=== PATIENT | male | born 1965 | race Caucasian/White ===

== ENCOUNTER → 2016-09-21 | Outpatient (CLI) | payer BC, OTHER ==
[~2016-09-21] MED LIST: CMD25 PO; CMD5 PO; ENOX120I SQ; FLV1 PO; KETO10TA PO; LEVO150T9 PO; LEVO200T6 PO; LTD/40 PO; LURA80TA PO; LVNIS120 SC; LXP/20 PO; OXYC-57 PO; PANT40TA2 PO; THM100 PO; VORT10TA12 PO; VORT1TAB3 PO; WARF5TAB90 PO
--- NOTE | 2016-09-21 21:11 | DIAGNOSTIC IMAGING REPORT ---
MRI OF THE CERVICAL SPINE WITHOUT CONTRAST CLINICAL HISTORY: Right upper extremity weakness. Cervical disc herniation. Severe right shoulder pain. COMPARISON: CT of the cervical spine August 22, 2016. TECHNIQUE: Utilizing a 1.5 [place] magnet and dedicated coil, multiplanar, multiecho imaging of the cervical spine was performed without IV contrast. FINDINGS: This exam is mildly compromised by motion artifact. Alignment of the cervical spine is anatomic. Vertebral body heights are maintained. There is no intracanalicular mass or fluid collection. Cervical cord signal is suboptimally assessed on this exam but is likely within normal limits. C2-C3: The central canal and left neural foramen are patent. There is mild to moderate narrowing of the right neural foramen. C3-C4: The central canal and neural foramen are patent. C4-C5: There is mild disc bulge. The central canal is patent. There is mild narrowing of both neural foramen. C5-C6: There is mild disc bulge. The central canal is patent. There is mild narrowing of both neural foramen. C6-C7: There is mild disc bulge. The central canal is patent. The neural foramen are patent. C7-T1: The central canal and neural foramen are patent. IMPRESSION: 1. Mild multilevel degenerative disc disease with mild disc bulges. No significant central canal stenosis. 2. Mild to moderate multilevel neural foraminal stenosis, as detailed above. 3. Study mildly compromised by motion artifact. Electronically signed by: Andrei Carver M.D. 09/21/2016 9:10 PM Dictated Date/Time: 09/21/2016 7:15 PM
== END | disposition home or self-care (01) ==
LOC: C.MRI 17:38
PROVIDERS: ATTEND Orthopaedic Surgery Orthopaedic Surgery of the Spine
DX: M50.10 Cervical disc disorder with radiculopathy, unspecified cervical region (principal); M50.20 Other cervical disc displacement, unspecified cervical region; R29.898 Other symptoms and signs involving the musculoskeletal system

== ENCOUNTER 2016-10-31 01:43 | Inpatient (IN) | payer BC, OTHER ==
[~2016-10-31] VITALS: Ht 185.4 cm; Wt 116.9 kg
[~2016-10-31 01:43] MED LIST changes: -CMD25 PO; -CMD5 PO; -ENOX120I SQ; -FLV1 PO; -KETO10TA PO; -LEVO200T6 PO; -LURA80TA PO; -LVNIS120 SC; -OXYC-57 PO; -THM100 PO; -VORT10TA12 PO; -VORT1TAB3 PO; -WARF5TAB90 PO
[2016-10-31] MEDS ORDERED: KETOROLAC TROMETHAMINE 60 MG/2 ML VIAL IM STA (01:58)
[2016-10-31] MEDS ORDERED: MoRPHine SULFATE 4 MG/ML 1 ML CARP\\VIAL IV STA (02:00)
[2016-10-31] MEDS ORDERED: ONDANSETRON INJ 2 MG/ML 2 ML VIAL IV STA (02:00)
[2016-10-31 02:27] LABS: BASO % 0.2 %; BASO ABS # 0.02 K/uL (0-0.2); COMPLETE YES; EOS % 1.8 %; HEMATOCRIT 45.9 % (42-52); IG% 0.2 %; LYMPH % 26.8 %; LYMPH ABS # 3.35 K/uL (1.2-3.4); MEAN CELL VOLUME 93.1 fL (80-100); MEAN CORPUSCULAR HEMOGLOBIN 32.5 pg (25-34); MEAN CORPUSCULAR HGB CONC 34.9 g/dl (32-36); MEAN PLATELET VOLUME 10.7 fL (7.4-10.4); MONO % 8.1 %; NEUT % 62.9 %; PLATELET COUNT 202 K/uL (130-400); RED BLOOD COUNT 4.93 M/uL (4.7-6.1); WHITE BLOOD COUNT 12.48 K/uL (4.8-10.8)
[2016-10-31] MEDS ORDERED: HYDROmorphone INJ 1 MG/ML SYR IV STA ×2 (02:41→03:48)
[2016-10-31 02:44] LABS: BUN/CREATININE RATIO 10.5 (10-20); CALCIUM 9.1 mg/dl (8.5-10.1); CREATININE 1.1 mg/dl (0.60-1.40); POTASSIUM 4.1 mmol/L (3.5-5.1)
[2016-10-31] MEDS ORDERED: OPTIRAY 320 IV PRN (02:45)
[2016-10-31] MEDS ORDERED: HEPARIN SOD (PORCINE) 1000 UNIT/ML 10 ML VIAL IV STA (03:50)
--- NOTE | 2016-10-31 03:52 | EMERGENCY ROOM VISIT NOTE ---
History First contact with patient: 01:54 Chief Complaint: BACK PAIN Stated Complaint: BACK PAIN History of Present Illness The patient is a 51 year old male who presents to the Emergency Room with complaints of sudden onset of left lateral chest pain and back pain described as aching, ranging in severity 6 out of 10 after lifting a garbage while at work. He works at [employer]. Nothing makes it better or worse. Patient was of mild dyspnea. He's had DVT before. No prior heart disease. No family heart disease. He does smoke. Patient denies fever, chills, nausea, vomiting, diarrhea, diaphoresis, leg pain or slowing, abdominal pain. No history of similar symptoms in the past. No spinal pain. Review of Systems See HPI for pertinent positives & negatives. A total of 10 systems reviewed and were otherwise negative. Past Medical/Surgical History Medical Problems: (1) Esophageal Reflux (2) Hypothyroidism Nos (3) Osteoarthritis of right knee (4) Tobacco Use Disorder Surgical Problems: (1) History of cholecystectomy Family History Patient reports no known family medical history. Social History Smoking Status: Current Every Day Smoker Alcohol Use: none Drug Use: none Marital Status: Housing Status: lives with family Occupation Status: employed Current/Historical Medications Scheduled Escitalopram Oxalate (Escitalopram Oxalate), 20 MG PO DAILY Levothyroxine Sodium (Levothyroxine Sodium), 150 MCG PO QAM Lurasidone HCl (Latuda), 40 MG PO DAILY Pantoprazole (Pantoprazole Sodium), 40 MG PO DAILY Allergies Coded Allergies: No Known Allergies (Unverified , 02/08/15) Physical Exam Vital Signs Date Time Temp Pulse Resp B/P Pulse Ox O2 Delivery O2 Flow Rate FiO2 10/31/16 03:31 133/94 10/31/16 03:23 60 22 94 10/31/16 03:18 54 17 95 10/31/16 03:10 153/96 10/31/16 02:48 61 96 10/31/16 02:43 59 15 97 10/31/16 02:31 141/91 10/31/16 02:30 57 10/31/16 02:15 95 Room Air 10/31/16 01:48 36.9 62 18 149/93 96 Room Air Physical Exam VITALS: Vitals are noted on the nurse's note and reviewed by myself. Vital signs stable. GENERAL: Pleasant male, splinting in pain, nondiaphoretic, well-developed well- nourished. SKIN: The skin was without rashes, erythema, edema, or bruising. There is no tenting of the skin. Capillary reflex less than 2 seconds. HEAD: Normocephalic atraumatic. EARS: External auditory canals clear, tympanic membranes pearly madsen without erythema or effusion bilaterally. EYES: Pupils equal round and reactive to light and accommodation. Conjunctivae without injection, sclerae without icterus. Extraocular movements intact. NOSE: Patent, turbinates without inflammation or discharge. MOUTH: Mucous membranes moist. Pharynx without erythema or exudate. Uvula midline. Airway patent. Tongue does not deviate. NECK: Supple without nuchal rigidity. No lymphadenopathy. No thyromegaly. Cervical spine is nontender. No JVD. HEART: Regular rate and rhythm without murmurs gallops or rubs. LUNGS: Clear to auscultation bilaterally without wheezes, rales or rhonchi. No dullness to percussion. No retractions or accessory muscle use. Left lateral chest tender to palpation easily reproducing symptoms ABDOMEN: Positive bowel sounds x 4. Normal tympanic percussion. Soft, nontender, without masses or organomegaly. Brown sign negative. No guarding or rebound tenderness. MUSCULOSKELETAL: No muscle atrophy, erythema, or edema noted. NEURO: Patient was alert and oriented to person place and time. Normal sensation to light and sharp touch. No focal neurological deficits. Medical Decision & Procedures Laboratory Results 10/31/16 02:15 Red Blood Count 4.93, Mean Corpuscular Volume 93.1, Mean Corpuscular Hemoglobin 32.5, Mean Corpuscular Hemoglobin Concent 34.9, Mean Platelet Volume 10.7, Neutrophils (%) (Auto) 62.9, Lymphocytes (%) (Auto) 26.8, Monocytes (%) (Auto) 8.1, Eosinophils (%) (Auto) 1.8, Basophils (%) (Auto) 0.2, Neutrophils # (Auto) 7.84, Lymphocytes # (Auto) 3.35, Monocytes # (Auto) 1.01, Eosinophils # (Auto) 0.23, Basophils # (Auto) 0.02 10/31/16 02:15 Test 10/31/16 02:15 10/31/16 02:21 10/31/16 03:37 10/31/16 03:44 White Blood Count 12.48 K/uL (4.8-10.8) Red Blood Count 4.93 M/uL (4.7-6.1) Hemoglobin 16.0 g/dL (14.0-18.0) Hematocrit 45.9 % (42-52) Mean Corpuscular Volume 93.1 fL (80-100) Mean Corpuscular Hemoglobin 32.5 pg (25-34) Mean Corpuscular Hemoglobin Concent 34.9 g/dl (32-36) Platelet Count 202 K/uL (130-400) Mean Platelet Volume 10.7 fL (7.4-10.4) Neutrophils (%) (Auto) 62.9 % Lymphocytes (%) (Auto) 26.8 % Monocytes (%) (Auto) 8.1 % Eosinophils (%) (Auto) 1.8 % Basophils (%) (Auto) 0.2 % Neutrophils # (Auto) 7.84 K/uL (1.4-6.5) Lymphocytes # (Auto) 3.35 K/uL (1.2-3.4) Monocytes # (Auto) 1.01 K/uL (0.11-0.59) Eosinophils # (Auto) 0.23 K/uL (0-0.5) Basophils # (Auto) 0.02 K/uL (0-0.2) RDW Standard Deviation 40.6 fL (36.4-46.3) RDW Coefficient of Variation 12.2 % (11.5-14.5) Immature Granulocyte % (Auto) 0.2 % Immature Granulocyte # (Auto) 0.03 K/uL (0.00-0.02) Anion Gap 6.0 mmol/L (3-11) Est Creatinine Clear Calc Drug Dose 105.4 ml/min Estimated GFR () 88.4 Estimated GFR (Non- 76.2 BUN/Creatinine Ratio 10.5 (10-20) Calcium Level 9.1 mg/dl (8.5-10.1) Bedside D-Dimer > 450 ng/mlFEU (0-450) Bedside Troponin I 0.000 ng/ml (0-0.045) Medications Administered Medications (Trade) Dose Ordered Sig/Bennie Route Start Time Stop Time Status Last Admin Dose Admin Morphine Sulfate (MoRPHine SULFATE INJ) 4 mg NOW STAT IV 10/31/16 02:00 10/31/16 02:02 DC 10/31/16 02:11 4 MG Ondansetron HCl (Zofran Inj) 4 mg NOW STAT IV 10/31/16 02:00 10/31/16 02:02 DC 10/31/16 02:10 4 MG Hydromorphone HCl (Dilaudid Inj) 1 mg NOW STAT IV 10/31/16 02:41 10/31/16 02:43 DC 10/31/16 02:45 1 MG ED Course Prior records/ancillary studies reviewed. Triage Nursing notes reviewed. The patient's history was concerning for chest pain. Differential diagnosis: Etiologies such as cardiac ischemia, aortic dissection, pulmonary embolism, pneumonia, pneumothorax, musculoskeletal, infections, pericarditis, myocarditis , esophageal rupture, gastrointestinal, as well as others were entertained. Physical examination: As above. ER treatment provided: Morphine, Zofran, Dilaudid, heparin On reassessment the patient felt better. Diagnostic interpretation by me: The electrocardiogram was negative for pathologic change. Normal sinus, normal intervals, no acute ST-T wave changes. Impression normal sinus rhythm interpreted by myself The labs revealed negative troponin, elevated d-dimer Imaging studies: Chest x-ray with no acute consolidation, pneumothorax or free air per my interpretation CTA CHEST: Comparison 05/19/2014 There are filling defects in the segmental and subsegmental pulmonary arterial branches of both lower lobes compatible pulmonary emboli. Peripherally located wedge-shaped opacity in the left lower lobe is most likely a pulmonary infarct. Follow-up is recommended to ensure resolution. Central pulmonary arteries are nondilated. No evidence of right heart strain. Ascending thoracic aorta is aneurysmally dilated measuring up to 4.0 cm. Trace left pleural effusion. No pneumothorax. No adenopathy. Heart is normal size. No pericardial effusion. Upper abdomen is unremarkable as visualized. Radiologist: Julian Noyola MD Consultation: A consultation was placed with the hospitalist, Dr. Zavala. The case was discussed and diagnostics were reviewed. The patient was evaluated in the ER for further treatment. Exam and history seem consistent with PE. Patient was started on heparin. Patient was reassessed multiple times. Vital Signs remained stable. He was in the severe amount of pain. He was medicated as above. No problems in the past of blood thinners. Patient agrees to treatment plan of admission. Hypercoagulable workup was ordered.By the evaluation outlined above emergent etiologies such as cardiac ischemia, aortic dissection pneumonia, pneumothorax , infections, pericarditis, myocarditis, gastrointestinal, as well as others were deemed relatively unlikely. The pt informed about the findings as listed above. All questions were answered and pleased with the treatment. Case reviewed by attending. Medical Decision As above Impression Primary Impression: Bilateral pulmonary embolism Additional Impressions: Pulmonary infarct Aortic aneurysm Critical Care I have personally spent greater than 30 minutes of critical care time in the direct management of this patient. This includes bedside care, interpretation of diagnostic studies, and testing, discussion with consultants, patient, and family members, and other required patient management activities. This 30 minutes is in excess of all separately billable procedures. Departure Information Dispostion Being Evaluated By Hospitalist Condition FAIR Referrals No Doctor, Assigned (PCP) Patient Instructions My [facility] Problem Qualifiers
[2016-10-31] MEDS ORDERED: HEPARIN 25,000 UNIT/500ML D5W 500 ML IV PRN (04:00)
[2016-10-31 04:26] LABS: INR 0.9 (0.9-1.1); PROTHROMBIN TIME (PATIENT) 10.1 SECONDS (9.0-12.0)
[2016-10-31] MEDS ORDERED: LEVO150T9 PO (04:39)
[2016-10-31] MEDS ORDERED: ONDANSETRON INJ 2 MG/ML 2 ML VIAL IV PRN (04:45)
[2016-10-31] MEDS ORDERED: MAGNESIUM HYDROXIDE SUSP 30 ML UDC PO PRN (04:45)
[2016-10-31] MEDS ORDERED: NITROGLYCERIN 0.4 MG SL PER TAB CHARGE SL PRN (04:45)
[2016-10-31] MEDS ORDERED: ALUMINUM/MAGNESIUM/SIMETH (MAALOX MAX) 30 ML UDC PO PRN (04:45)
[2016-10-31] MEDS ORDERED: ACETAMINOPHEN 325 MG TAB PO PRN (04:45)
[2016-10-31] MEDS ORDERED: LORAZEPAM 2 MG/ML 1 ML VIAL IV PRN (05:00)
[2016-10-31 05:15] VITALS: BP 144/101; PULSE 62; TEMP 36.3; O2SAT 95; Ht 185.4 cm; Wt 116.9 kg
[2016-10-31] MEDS ORDERED: LORAZEPAM INJ 0.5 MG in SYRINGE 0.75 ML IV PRN (05:30)
[2016-10-31] MEDS: MoRPHine SULFATE 2 MG/ML CARP IV PRN ×2 (05:54→11:30)
[2016-10-31] MEDS: LEVOTHYROXINE 200 MCG TAB PO SCH (06:24)
[2016-10-31] MEDS: HEPARIN 25,000 UNIT/500ML D5W 500 ML IV PRN ×3 (07:00→17:39)
--- NOTE | 2016-10-31 07:12 | HISTORY & PHYSICAL EXAMINATION ---
DATE OF ADMISSION: 10/31/2016 CHIEF COMPLAINT: Left lower chest pain. HISTORY OF PRESENT ILLNESS: This is a 51-year-old male with past medical history significant for diabetes, hypertension, adjustment disorder with depression, hypothyroidism, GERD, history of alcohol abuse, presents with severe pain in the left side of the chest. The patient says it started today when he was working in his garage, about 8/10 in severity. Denies any shortness of breath, no fever, no cough, no dizziness, no blurred vision, no nausea, no vomiting, no abdominal pain. Normal bowel and bladder movements. Appetite is okay. The patient says about couple of years ago he had a DVT in his right arm and was on Coumadin for a few months. No family history of blood clots. Currently resting comfortably and hemodynamically stable. ALLERGIES: No known drug allergies. PAST MEDICAL HISTORY: As mentioned above. PAST SURGICAL HISTORY: Umbilical hernia repair, laparoscopic cholecystectomy. MEDICATIONS: The patient is on Protonix 40 mg p.o. daily, levothyroxine 200 mcg p.o. daily, Latuda 40 mg p.o. daily, Lexapro 20 mg p.o. daily. FAMILY HISTORY: Significant for father had Alzheimer's disease, mother had Alzheimer's. SOCIAL HISTORY: . Smokes 1 pack a day for last 37 years. Alcohol was in the rehab, but is back in bouts of heavy drinking. No drug use. REVIEW OF SYSTEMS: As per HPI. Rest of review of systems negative. PHYSICAL EXAMINATION: GENERAL: The patient is of moderate build, not in distress. VITAL SIGNS: Temperature of 36.9, pulse 61, respiration 21, blood pressure 131/89, oxygen 94% room air. HEENT: No pallor, no icterus. Pupils equal, round, and reactive to light. NECK: No JVD, no neck masses, no carotid bruits. CARDIOVASCULAR: S1, S2 heard, regular rate and rhythm, no murmur, no gallop. RESPIRATORY SYSTEM: Clear to auscultation bilaterally. No wheezing, no crackles. ABDOMEN: Soft, bowel sounds present. Nontender. No distention. CENTRAL NERVOUS SYSTEM: Cranial nerves II through XII grossly intact. Nonfocal. EXTREMITIES: No edema. LABS: WBC 12, hemoglobin 16, hematocrit 45.9, platelets 202. Sodium 142, potassium 4.1, chloride 108, bicarbonate 28, BUN 12, creatinine 1.1. Serum glucose 103, calcium 9.1, troponin 10.00, PT 10.1, INR 0.9, PTT 26.8. Point of care D-dimer greater than 450. CT of the chest, unofficial read shows bilateral lower lobe DVT with left lower lobe pulmonary infarct. ASSESSMENT AND PLAN: This is a 51-year-old male who presents with bilateral lower lobe pulmonary embolism. 1. Acute pulmonary embolism in the bilateral lower lobes with left lower lobe pulmonary infarct, has some left lower chest pain, has history of deep venous thrombosis in the right arm in the past. We will place him on IV heparin and start on Coumadin later today. The patient to decide about newer anticoagulation medications. We will consult social service to help with the decision. Pain control. Monitor on tele floor. Because of the second episode of blood clots, needs to be on long-term anticoagulation. Follow up with family doctor. 2. History of hypothyroidism. Continue Synthroid. 3. History of depression. Continue Lexapro. 4. History of gastroesophageal reflux disease. Continue Protonix. 5. Deep venous thrombosis prophylaxis, on IV heparin. DISPOSITION: Admit to tele floor. Expect to discharge home and follow with family doctor. Level 1 full code. MTDD
[2016-10-31] MEDS: OXYCODONE/ACETAMINOPHEN 5-325 TAB PO PRN ×3 (07:25→20:55)
--- NOTE | 2016-10-31 08:02 | DIAGNOSTIC IMAGING REPORT ---
CHEST CTA for PULMONARY ARTERIES CT DOSE: 683.24 mGy.cm HISTORY: Left-sided chest and rib pain. Elevated d-dimer. TECHNIQUE: Multiaxial CT images of the chest were performed following the intravenous administration of contrast to evaluate the pulmonary arteries. Maximal intensity projection images were also obtained. COMPARISON STUDY: None. FINDINGS: The ascending thoracic aorta measures up to 4 cm in diameter. No evidence for aortic dissection. The heart is normal in size. No evidence for right-sided heart strain. Trace left pleural effusion. Multiple filling defects seen within the bilateral lower lobe segmental and subsegmental pulmonary arteries consistent with pulmonary embolus. There are also a few pulmonary emboli seen within the right upper lobe segmental pulmonary arteries. The main pulmonary arteries remain patent. The visualized liver and spleen are unremarkable. No mediastinal or hilar lymphadenopathy. No fractures within the visualized osseous structures. No pneumothorax. A 3.1 cm peripheral opacity within the left lower lobe. IMPRESSION: 1. Bilateral pulmonary emboli as described above. No evidence for right heart strain. 2. A 3.1 cm peripheral opacity within the left lower lobe which favors a pulmonary infarct. 3-[address] follow-up is recommended to ensure resolution. 3. Trace left pleural effusion. 4. The ascending thoracic aorta measures up to 4 cm in diameter. Electronically signed by: Sheng Dickerson M.D. 10/31/2016 8:01 AM Dictated Date/Time: 10/31/2016 7:56 AM
--- NOTE | 2016-10-31 08:07 | DIAGNOSTIC IMAGING REPORT ---
CHEST ONE VIEW PORTABLE HISTORY: Left-sided chest pain. COMPARISON: Chest 07/18/2014. FINDINGS: The lungs are clear. Cardiac silhouette is normal in size. No pleural effusions. No pneumothorax. IMPRESSION: No acute process. Electronically signed by: Sheng Dickerson M.D. 10/31/2016 8:06 AM Dictated Date/Time: 10/31/2016 8:06 AM
[2016-10-31] MEDS: LURASIDONE HCL 40 MG TAB PO SCH (08:10)
[2016-10-31] MEDS: PANTOprazole SOD 40 MG TAB PO SCH (08:10)
[2016-10-31] MEDS: ESCITALOPRAM OXALATE 20 MG TAB PO SCH (08:11)
[2016-10-31] MEDS: THIAMINE HCL 100 MG TAB PO SCH (08:11)
[2016-10-31] MEDS: CEROVITE ADV FORMULA TAB PO SCH (08:12)
[2016-10-31 08:32] VITALS: BP 132/87; PULSE 55; TEMP 36.5; O2SAT 93
--- NOTE | 2016-10-31 11:15 | DIAGNOSTIC IMAGING REPORT ---
BILATERAL LOWER EXTREMITY VENOUS DOPPLER HISTORY: Pulmonary emboli. dvt? COMPARISON STUDY: None. FINDINGS: No DVT within the right lower extremity. Thrombus seen within one of 2 left posterior tibial and peroneal veins. No additional areas of thrombus identified within the left lower extremity deep venous system. IMPRESSION: 1. Deep vein thrombosis involving the left posterior tibial and peroneal veins. 2. No DVT within the right lower extremity. Electronically signed by: Sheng Dickerson M.D. 10/31/2016 11:14 AM Dictated Date/Time: 10/31/2016 11:13 AM
[2016-10-31 11:56] VITALS: BP 119/76; PULSE 53; TEMP 36.5; O2SAT 93
--- NOTE | 2016-10-31 12:29 | Progress Note ---
Internal Med Progress Note Date of Service: October 31, 2016. Provider Documentation: SUBJECTIVE: Seen and examined at bedside. States feeling much better. Complains of left sided pleuritic chest pain which is improving. Denies SOB, dizziness, abd pain, nausea. Offers no other complaints. OBJECTIVE: Vital Signs-as noted below Physical Exam: General Appearance:Moderately built and nourished, no apparent distress Head: normocephalic, Atraumatic Eyes: normal inspection, EOMI, PERRLA Neck: supple, Trachea midline Respiratory/Chest: Normal breath sounds, CTA Cardiovascular: S1, S2, No murmur Abdomen/GI:Soft, Non tender, Bowel sounds present Extremities/Musculoskelatal:normal inspection, no edema Neurologic/Psych:AAOX3, grossly no focal neurological deficits Skin: normal color, warm Lab data as noted below. ASSESSMENT & PLAN: Acute B/L lower lobes PE and LLL Pulmonary Infarct: H/O R arm DVT No clotting disorders in family Venous Doppler: Deep vein thrombosis involving the left posterior tibial and peroneal veins. No RLE DVT Hypercoagulable workup pending Continue IV heparin, Start Coumadin today Monitor INR Doesn't prefer to be on newer anticoagulation medications Plan to discharge on Lovenox and Coumadin Hypothyroidism: Continue Synthroid. H/O Depression: Continue Lexapro. GERD Continue Protonix DVT Px: On IV heparin and Coumadin Code Status: Full Code DISPOSITION: Monitor in Tele floor Plan to discharge in next 48 hours if stable Vital Signs: Date Time Temp Pulse Resp B/P Pulse Ox O2 Delivery O2 Flow Rate FiO2 10/31/16 12:00 Room Air 10/31/16 11:56 36.5 53 18 119/76 93 10/31/16 08:32 36.5 55 18 132/87 93 10/31/16 08:00 Room Air 10/31/16 05:15 36.3 62 16 144/101 95 Room Air 10/31/16 05:00 62 19 138/89 95 Room Air 10/31/16 04:24 61 21 131/89 94 Room Air 10/31/16 03:31 133/94 10/31/16 03:23 60 22 94 10/31/16 03:18 54 17 95 10/31/16 03:10 153/96 10/31/16 02:48 61 96 10/31/16 02:43 59 15 97 10/31/16 02:31 141/91 10/31/16 02:30 57 10/31/16 02:15 95 Room Air 10/31/16 01:48 36.9 62 18 149/93 96 Room Air Lab Results: Results Past 24 Hours Test 10/31/16 02:15 10/31/16 02:21 10/31/16 04:00 10/31/16 04:15 Range/Units White Blood Count 12.48 4.8-10.8 K/uL Red Blood Count 4.93 4.7-6.1 M/uL Hemoglobin 16.0 14.0-18.0 g/dL Hematocrit 45.9 42-52 % Mean Corpuscular Volume 93.1 80-100 fL Mean Corpuscular Hemoglobin 32.5 25-34 pg Mean Corpuscular Hemoglobin Concent 34.9 32-36 g/dl Platelet Count 202 130-400 K/uL Mean Platelet Volume 10.7 7.4-10.4 fL Neutrophils (%) (Auto) 62.9 % Lymphocytes (%) (Auto) 26.8 % Monocytes (%) (Auto) 8.1 % Eosinophils (%) (Auto) 1.8 % Basophils (%) (Auto) 0.2 % Neutrophils # (Auto) 7.84 1.4-6.5 K/uL Lymphocytes # (Auto) 3.35 1.2-3.4 K/uL Monocytes # (Auto) 1.01 0.11-0.59 K/uL Eosinophils # (Auto) 0.23 0-0.5 K/uL Basophils # (Auto) 0.02 0-0.2 K/uL RDW Standard Deviation 40.6 36.4-46.3 fL RDW Coefficient of Variation 12.2 11.5-14.5 % Immature Granulocyte % (Auto) 0.2 % Immature Granulocyte # (Auto) 0.03 0.00-0.02 K/uL Sodium Level 142 136-145 mmol/L Potassium Level 4.1 3.5-5.1 mmol/L Chloride Level 108 98-107 mmol/L Carbon Dioxide Level 28 21-32 mmol/L Anion Gap 6.0 3-11 mmol/L Blood Urea Nitrogen 12 7-18 mg/dl Creatinine 1.10 0.60-1.40 mg/dl Est Creatinine Clear Calc Drug Dose 105.4 ml/min Estimated GFR () 88.4 Estimated GFR (Non- 76.2 BUN/Creatinine Ratio 10.5 10-20 Random Glucose 103 70-99 mg/dl Calcium Level 9.1 8.5-10.1 mg/dl Bedside D-Dimer > 450 0-450 ng/mlFEU Bedside Troponin I 0.000 0-0.045 ng/ml Prothrombin Time 10.1 9.0-12.0 SECONDS Prothromb Time International Ratio 0.9 0.9-1.1 Activated Partial Thromboplast Time 26.8 21.0-31.0 SECONDS Partial Thromboplastin Ratio 1.0 Test 10/31/16 10:15 Range/Units Activated Partial Thromboplast Time 77.4 21.0-31.0 SECONDS Partial Thromboplastin Ratio 3.0
[2016-10-31 15:29] VITALS: BP 113/72; PULSE 52; TEMP 36.7; O2SAT 90
[2016-10-31] MEDS ORDERED: WARFARIN SOD 5 MG TAB PO SCH (16:00)
[2016-10-31 17:37] LABS: PARTIAL THROMBOPLASTIN RATIO 2.2
[2016-10-31 20:07] VITALS: BP 103/65; PULSE 53; TEMP 37; O2SAT 93
[2016-11-01 00:09] VITALS: BP 127/76; PULSE 54; TEMP 37; O2SAT 92
[2016-11-01 05:02] VITALS: BP 139/90; PULSE 57; TEMP 37; O2SAT 90
[2016-11-01] MEDS: LEVOTHYROXINE 200 MCG TAB PO SCH (06:09)
[2016-11-01 06:29] LABS: BASO % 0.2 %; BASO ABS # 0.02 K/uL (0-0.2); COMPLETE YES; EOS % 2.4 %; HEMATOCRIT 44.4 % (42-52); IG% 0.1 %; LYMPH % 41.3 %; MEAN CELL VOLUME 93.3 fL (80-100); MEAN CORPUSCULAR HGB CONC 35.4 g/dl (32-36); MEAN PLATELET VOLUME 10.9 fL (7.4-10.4); PLATELET COUNT 172 K/uL (130-400); RED BLOOD COUNT 4.76 M/uL (4.7-6.1); WHITE BLOOD COUNT 8.72 K/uL (4.8-10.8)
[2016-11-01 06:48] LABS: PARTIAL THROMBOPLASTIN RATIO 1.9; PROTHROMBIN TIME (PATIENT) 10.4 SECONDS (9.0-12.0)
[2016-11-01] MEDS: HEPARIN 25,000 UNIT/500ML D5W 500 ML IV PRN ×2 (07:00→08:26)
[2016-11-01 07:05] LABS: BUN/CREATININE RATIO 10.8 (10-20); CALCIUM 8.8 mg/dl (8.5-10.1); CREATININE 0.91 mg/dl (0.60-1.40); MAGNESIUM 2.2 mg/dl (1.8-2.4); POTASSIUM 4.1 mmol/L (3.5-5.1)
[2016-11-01 07:29] VITALS: BP 119/79; PULSE 53; TEMP 37; O2SAT 91
[2016-11-01] MEDS: THIAMINE HCL 100 MG TAB PO SCH (08:20)
[2016-11-01] MEDS: CEROVITE ADV FORMULA TAB PO SCH (08:20)
[2016-11-01] MEDS: LURASIDONE HCL 40 MG TAB PO SCH (08:20)
[2016-11-01] MEDS: ESCITALOPRAM OXALATE 20 MG TAB PO SCH (08:20)
[2016-11-01] MEDS: PANTOprazole SOD 40 MG TAB PO SCH (08:20)
[2016-11-01] MEDS: OXYCODONE/ACETAMINOPHEN 5-325 TAB PO PRN (08:27)
--- NOTE | 2016-11-01 10:43 | Progress Note ---
Internal Med Progress Note Date of Service: November 01, 2016. Provider Documentation: SUBJECTIVE: Seen and examined at bedside. Left sided pleuritic pain is much improved. States feeling well. Denies SOB, dizziness, abd pain, nausea. Offers no other complaints. OBJECTIVE: Vital Signs-as noted below Physical Exam: General Appearance:Moderately built and nourished, no apparent distress Head: normocephalic, Atraumatic Eyes: normal inspection, EOMI, PERRLA Neck: supple, Trachea midline Respiratory/Chest: Normal breath sounds, CTA Cardiovascular: S1, S2, No murmur Abdomen/GI:Soft, Non tender, Bowel sounds present Extremities/Musculoskelatal:normal inspection, no edema Neurologic/Psych:AAOX3, grossly no focal neurological deficits Skin: normal color, warm Lab data as noted below. ASSESSMENT & PLAN: Acute B/L lower lobes PE and LLL Pulmonary Infarct: Acute LLE DVT: H/O R arm DVT No clotting disorders in family Venous Doppler: Deep vein thrombosis involving the left posterior tibial and peroneal veins. No RLE DVT Hypercoagulable workup pending Continue IV heparin and Coumadin Monitor INR:1.0 today Doesn't prefer to be on newer anticoagulation medications Plan to discharge on Lovenox and Coumadin Hypothyroidism: Continue Synthroid. H/O Depression: Continue Lexapro. GERD Continue Protonix DVT Px: On IV heparin and Coumadin Code Status: Full Code DISPOSITION: Monitor in Tele floor Plan to discharge home today Follow up with in 1 week. Please call your doctor's office for appointment if you don't hear from them Take 5 mg coumadin today (11/02/16) Get PT/INR checked tomorrow (11/03/16) and follow up with results with Coumadin clinic for further Coumadin dosage Seek Immediate medical attention if your symptoms reoccur or worsen or if you notice any bleeding Vital Signs: Date Time Temp Pulse Resp B/P Pulse Ox O2 Delivery O2 Flow Rate FiO2 11/01/16 08:00 Room Air 11/01/16 07:29 37.0 53 20 119/79 91 Room Air 11/01/16 05:02 37.0 57 18 139/90 90 Room Air 11/01/16 04:00 Room Air 11/01/16 00:09 37.0 54 18 127/76 92 Room Air 11/01/16 00:02 Room Air 10/31/16 20:07 37.0 53 18 103/65 93 Room Air 10/31/16 20:00 Room Air 10/31/16 16:00 Room Air 10/31/16 15:29 36.7 52 18 113/72 90 10/31/16 12:00 Room Air 10/31/16 11:56 36.5 53 18 119/76 93 Lab Results: Results Past 24 Hours Test 10/31/16 17:00 11/01/16 06:00 Range/Units Activated Partial Thromboplast Time 56.3 48.1 21.0-31.0 SECONDS Partial Thromboplastin Ratio 2.2 1.9 White Blood Count 8.72 4.8-10.8 K/uL Red Blood Count 4.76 4.7-6.1 M/uL Hemoglobin 15.7 14.0-18.0 g/dL Hematocrit 44.4 42-52 % Mean Corpuscular Volume 93.3 80-100 fL Mean Corpuscular Hemoglobin 33.0 25-34 pg Mean Corpuscular Hemoglobin Concent 35.4 32-36 g/dl Platelet Count 172 130-400 K/uL Mean Platelet Volume 10.9 7.4-10.4 fL Neutrophils (%) (Auto) 48.0 % Lymphocytes (%) (Auto) 41.3 % Monocytes (%) (Auto) 8.0 % Eosinophils (%) (Auto) 2.4 % Basophils (%) (Auto) 0.2 % Neutrophils # (Auto) 4.18 1.4-6.5 K/uL Lymphocytes # (Auto) 3.60 1.2-3.4 K/uL Monocytes # (Auto) 0.70 0.11-0.59 K/uL Eosinophils # (Auto) 0.21 0-0.5 K/uL Basophils # (Auto) 0.02 0-0.2 K/uL RDW Standard Deviation 40.8 36.4-46.3 fL RDW Coefficient of Variation 12.1 11.5-14.5 % Immature Granulocyte % (Auto) 0.1 % Immature Granulocyte # (Auto) 0.01 0.00-0.02 K/uL Prothrombin Time 10.4 9.0-12.0 SECONDS Prothromb Time International Ratio 1.0 0.9-1.1 Sodium Level 140 136-145 mmol/L Potassium Level 4.1 3.5-5.1 mmol/L Chloride Level 106 98-107 mmol/L Carbon Dioxide Level 29 21-32 mmol/L Anion Gap 5.0 3-11 mmol/L Blood Urea Nitrogen 10 7-18 mg/dl Creatinine 0.91 0.60-1.40 mg/dl Est Creatinine Clear Calc Drug Dose 125.7 ml/min Estimated GFR () 111.1 Estimated GFR (Non- 95.9 BUN/Creatinine Ratio 10.8 10-20 Random Glucose 95 70-99 mg/dl Calcium Level 8.8 8.5-10.1 mg/dl Magnesium Level 2.2 1.8-2.4 mg/dl
[2016-11-01] MEDS ORDERED: LVNIS120 SC (11:13)
[2016-11-01] MEDS ORDERED: CMD5 PO (11:13)
[2016-11-01] MEDS ORDERED: THM100 PO (11:13)
[2016-11-01] MEDS ORDERED: CMD25 PO (11:13)
[2016-11-01] MEDS ORDERED: FLV1 PO (11:13)
--- NOTE | 2016-11-01 11:17 | Discharge Summary ---
Discharge Summary Date of Service November 01, 2016. Discharge Summary Admission Date: October 31, 2016 at 04:38 Discharge Date: November 01, 2016 Discharge Disposition: Home Principal Diagnosis: Bilateral Pulmonary Embolism, Pulmonary Infarct, Acute DVT Procedures: CTA: 1. Bilateral pulmonary emboli as described above. No evidence for right heart strain. 2. A 3.1 cm peripheral opacity within the left lower lobe which favors a pulmonary infarct. 3-[address] follow-up is recommended to ensure resolution. 3. Trace left pleural effusion. 4. The ascending thoracic aorta measures up to 4 cm in diameter. Venous Doppler: 1. Deep vein thrombosis involving the left posterior tibial and peroneal veins. 2. No DVT within the right lower extremity. Consultations: None Pending Studies/Follow-Up: Follow up with in 1 week. Please call your doctor's office for appointment if you don't hear from them Take 5 mg coumadin today (11/02/16) Get PT/INR checked tomorrow (11/03/16) and follow up with results with Coumadin clinic for further Coumadin dosage Seek Immediate medical attention if your symptoms reoccur or worsen or if you notice any bleeding Medication Reconciliation New Medications: Enoxaparin (Lovenox) 120 Mg/0.8 Ml Inj 120 MG SC BID for 5 Days, #10 Warfarin Sod (Coumadin) 2.5 Mg Tab 2.5 MG PO UD for 30 Days, #30 2 Refills Take 5mg coumadin today Get PT/INR checked on 11/02/16, follow up with coumadin clinic for daily coumadin dosage. Folic Acid (Folic Acid) 1 Mg Tab 1 MG PO QAM for 7 Days, #7 TAB Thiamine HCl (Vitamin B-1) 100 Mg Tab 100 MG PO QAM for 7 Days, #7 TAB Warfarin Sod (Coumadin) 5 Mg Tab 5 MG PO UD for 30 Days, #30 TAB 1 Refill Take 5mg coumadin today Get PT/INR checked on 11/02/16, follow up with coumadin clinic for daily coumadin dosage. Continued Medications: Escitalopram Oxalate (Escitalopram Oxalate) 20 Mg Tab 20 MG PO DAILY Levothyroxine Sodium (Levothyroxine Sodium) 150 Mcg Tab 200 MCG PO QAM, #30 Lurasidone HCl (Latuda) 40 Mg Tab 40 MG PO DAILY Pantoprazole (Pantoprazole Sodium) 40 Mg Tab 40 MG PO DAILY Admission Information HPI (per Admitting provider): CHIEF COMPLAINT: Left lower chest pain. HISTORY OF PRESENT ILLNESS: This is a 51-year-old male with past medical history significant for diabetes, hypertension, adjustment disorder with depression, hypothyroidism, GERD, history of alcohol abuse, presents with severe pain in the left side of the chest. The patient says it started today when he was working in his garage, about 8/10 in severity. Denies any shortness of breath, no fever, no cough, no dizziness, no blurred vision, no nausea, no vomiting, no abdominal pain. Normal bowel and bladder movements. Appetite is okay. The patient says about couple of years ago he had a DVT in his right arm and was on Coumadin for a few months. No family history of blood clots. Currently resting comfortably and hemodynamically stable. Physical Exam (per Admitting): PHYSICAL EXAMINATION: GENERAL: The patient is of moderate build, not in distress. VITAL SIGNS: Temperature of 36.9, pulse 61, respiration 21, blood pressure 131/89, oxygen 94% room air. HEENT: No pallor, no icterus. Pupils equal, round, and reactive to light. NECK: No JVD, no neck masses, no carotid bruits. CARDIOVASCULAR: S1, S2 heard, regular rate and rhythm, no murmur, no gallop. RESPIRATORY SYSTEM: Clear to auscultation bilaterally. No wheezing, no crackles. ABDOMEN: Soft, bowel sounds present. Nontender. No distention. CENTRAL NERVOUS SYSTEM: Cranial nerves II through XII grossly intact. Nonfocal. EXTREMITIES: No edema. Hospital Course Acute B/L lower lobes PE and LLL Pulmonary Infarct: Acute LLE DVT: H/O R arm DVT No clotting disorders in family Venous Doppler: Deep vein thrombosis involving the left posterior tibial and peroneal veins. No RLE DVT Hypercoagulable workup pending Continue IV heparin and Coumadin Monitor INR:1.0 today Doesn't prefer to be on newer anticoagulation medications Plan to discharge on Lovenox and Coumadin Hypothyroidism: Continue Synthroid. H/O Depression: Continue Lexapro. GERD Continue Protonix DVT Px: On IV heparin and Coumadin Code Status: Full Code DISPOSITION: Monitor in Tele floor Plan to discharge home today Follow up with in 1 week. Please call your doctor's office for appointment if you don't hear from them Take 5 mg coumadin today (11/02/16) Get PT/INR checked tomorrow (11/03/16) and follow up with results with Coumadin clinic for further Coumadin dosage Seek Immediate medical attention if your symptoms reoccur or worsen or if you notice any bleeding Total time spent on discharge = 35 minutes This includes examination of the patient, discharge planning, medication reconciliation, and communication with other providers. Discharge Instructions Discharge Instructions Date of Service November 01, 2016. Admission Reason for Admission: Bilateral Pulmonary Embolism, Pulmonary Infarct Discharge Discharge Diagnosis / Problem: Bilateral Pulmonary Embolism, Pulmonary Infarct , Acute DVT Discharge Goals Goal(s): Decrease discomfort, Improve function Activity Recommendations Activity Limitations: resume your previous activity Exercise/Sports Limitations: as tolerated . Instructions / Follow-Up Instructions / Follow-Up Follow up with in 1 week. Please call your doctor's office for appointment if you don't hear from them Take 5 mg coumadin today (11/02/16) Get PT/INR checked tomorrow (11/03/16) and follow up with results with Coumadin clinic for further Coumadin dosage Seek Immediate medical attention if your symptoms reoccur or worsen or if you notice any bleeding Current Hospital Diet Patient's current hospital diet: AHA Diet (Heart Healthy) Discharge Diet Recommended Diet: AHA Diet (Heart Healthy) Pending Studies Studies pending at discharge: yes List of pending studies: Hypercoaguable workup Work Instructions Lifting Limitations: Additional Instructions: Hospitalized at [facility] on 10/31/16 and discharged on 11/01/16. Can return to work after being evaluated by his primary care physician Medical Emergencies . Who to Call and When: Medical Emergencies: If at any time you feel your situation is an emergency, please call 911 immediately. . Non-Emergent Contact Non-Emergency issues call your: Primary Care Provider Call Non-Emergent contact if: you have a fever, your pain is not controlled, your pain is worsening, your pain is unusual for you, you have any medication questions . . "Provider Documentation" section prepared by Juan Vizcarra. . VTE Core Measure Inpt VTE Proph given/why not?: Unfractionated heparin SQ, Warfarin (Coumadin)
[2016-11-01 11:49] VITALS: BP 115/70; PULSE 51; TEMP 36.8; O2SAT 91
[2016-11-05 13:38] LABS: ANTITHROMBINIII ACTIVITY** 101 % activity (80-120); B2 GLYCOPROTEIN IGA <9 SAU (<=20); B2 GLYCOPROTEIN IGG <9 SGU (<=20); B2 GLYCOPROTEIN IGM <9 SMU (<=20); LUPUS ANTICOAGULANT** TC36573X Negative (Negative); PROTEIN C ACTIVITY** TC 1777X 122 % (70-180); PROTEIN S ACT(FUNCT)**1779X 99 % (70-150)
[2017-03-03] MEDS ORDERED: VORT1TAB3 PO (07:47)
[2017-03-11] MEDS ORDERED: ENOX120I SQ (09:44)
[2017-03-11] MEDS ORDERED: OXYC-57 PO ×2 (13:12→13:16)
[2017-03-11] MEDS ORDERED: KETO10TA PO (13:12)
== END 2016-11-01 12:45 | disposition home or self-care (01) | DRG 299 ==
LOC: ENRESERVDT → ENRESERVTM → C.EDB 01:45 → C.MED 04:38
PROVIDERS: ADMIT Internal Medicine; ATTEND Internal Medicine
DX: I82.442 Acute embolism and thrombosis of left tibial vein (principal); I26.99 Other pulmonary embolism without acute cor pulmonale; I82.4Z2 Acute embolism and thrombosis of unspecified deep veins of left distal lower extremity; E11.9 Type 2 diabetes mellitus without complications; I10 Essential (primary) hypertension; E03.9 Hypothyroidism, unspecified; K21.9 Gastro-esophageal reflux disease without esophagitis; F32.9 Major depressive disorder, single episode, unspecified; F17.210 Nicotine dependence, cigarettes, uncomplicated; Z79.899 Other long term (current) drug therapy

== ENCOUNTER 2016-11-30 15:59 | Emergency (ER) | payer BC, OTHER ==
[~2016-11-30] VITALS: Ht 185.4 cm; Wt 118.0 kg
[~2016-11-30 15:59] MED LIST changes: +CMD25 PO; +CMD5 PO; +FLV1 PO; +LVNIS120 SC; +THM100 PO
[2016-11-30 16:03] VITALS: TEMP 36.6; Ht 185.4 cm; Wt 118.0 kg
[2016-11-30] MEDS ORDERED: ONDANSETRON INJ 2 MG/ML 2 ML VIAL IV STA (16:13)
[2016-11-30] MEDS ORDERED: SODIUM CHLORIDE 0.9% 1000ML 500 ML IV STA (16:13)
[2016-11-30] MEDS ORDERED: SODIUM CHLORIDE 0.9% 1000ML 1,000 ML IV STA (16:13)
[2016-11-30] MEDS ORDERED: HYDROmorphone INJ 2 MG/ML SYR/VIAL IV PRN (16:15)
[2016-11-30] MEDS ORDERED: VORT10TA12 PO (16:25)
[2016-11-30] MEDS ORDERED: LEVO200T6 PO (16:27)
[2016-11-30] MEDS ORDERED: WARF5TAB90 PO ×2 (16:29→16:30)
--- NOTE | 2016-11-30 16:30 | EMERGENCY ROOM VISIT NOTE ---
History Report prepared by Mekhi: George Hendricks Under the Supervision of: Dr. Enrrique Romeo M.D. First contact with patient: 16:09 Chief Complaint: FLANK PAIN Stated Complaint: KIDNEY PAIN History of Present Illness The patient is a 51 year old male who presents to the Emergency Room with complaints of worsening bilateral flank pain starting a week ago. He reports the pain as a 10/10 in severity. The patient admits that he had a kidney stone in the past but denies that it has ever passed. He reports that he was given Dilaudid for the pain during his last visit when he was diagnosed with kidney stones and admits it helped relieve his pain. The patient reports that his pain is the worst today. He reports that he did not take any medication to relieve his symptoms. The patient states that he has been eating and drinking normally today. He states that he has a clot in his left leg and two blood clots in his lungs that he takes Coumadin for. The patient reports that his last Coumadin level was two weeks ago and it was 3.4. He reports that he will have another check up for his Coumadin level later this week. The patient denies any nausea, fever, vomiting, falling, injury, urinary symptoms, kidney problems, and kidney failure. Source of History: patient Onset: a week ago Position: other (bilateral flank pain) Symptom Intensity: 10/10 Timing: worsening Associated Symptoms: No fevers, No nausea, No vomiting, No urinary symptoms Review of Systems See HPI for pertinent positives & negatives. A total of 10 systems reviewed and were otherwise negative. Past Medical & Surgical Medical Problems: (1) Esophageal Reflux (2) Hypothyroidism Nos (3) Osteoarthritis of right knee (4) Tobacco Use Disorder Surgical Problems: (1) History of cholecystectomy Family History FHx: Alzheimer's disease Social History Smoking Status: Current Every Day Smoker Alcohol Use: none Drug Use: none Marital Status: Housing Status: lives with family Occupation Status: employed Current/Historical Medications Scheduled Levothyroxine Sodium (Levothyroxine Sodium), 200 MCG PO DAILY Lurasidone Hcl (Latuda), 80 MG PO DAILY Pantoprazole (Pantoprazole Sodium), 40 MG PO DAILY Vortioxetine HBr (Trintellix), 10 MG PO DAILY Warfarin Sodium (Coumadin), 15 MG PO 3XWK Warfarin Sodium (Coumadin), 10 MG PO 4XWK Allergies Coded Allergies: No Known Allergies (Unverified , 02/08/15) Physical Exam Vital Signs Date Time Temp Pulse Resp B/P (MAP) Pulse Ox O2 Delivery O2 Flow Rate FiO2 11/30/16 16:03 36.6 62 18 146/103 96 Room Air Physical Exam GENERAL: Patient is in no acute distress. HEENT: No acute trauma, normocephalic atraumatic, mucous membranes moist, no nasal congestion, no scleral icterus. NECK: No stridor, no adenopathy, no meningismus, trachea is midline. LUNGS: Clear to auscultation bilaterally, no wheeze, no rhonchi, breath sounds equal. HEART: Without murmurs gallops or rubs, regular rate and rhythm. ABDOMEN: Soft, nontender, bowel sounds positive, no hernias, no peritonitis. EXTREMITIES: No cyanosis or edema, full range of motion of all the joints without pain or difficulty, no signs for acute trauma. NEUROLOGIC: Oriented x 3, no acute motor or sensory deficits, no focal weakness. SKIN: No rash, no jaundice, no diaphoresis. BACK: Tender over bilateral lower thoracic musculature. No rash. No bony step off. Medical Decision & Procedures ER Provider Diagnostic Interpretation: Radiology results as stated below per my review and radiologist interpretation: CHEST ONE VIEW PORTABLE CLINICAL HISTORY: FLANK PAIN/HEMATURIA COMPARISON STUDY: 10/31/2016 FINDINGS: The cardiac and mediastinal contours are normal. There is no evidence of focal pulmonary consolidation. There is no evidence of failure. No pleural effusions are visualized.[ There is no free intraperitoneal air IMPRESSION: No active disease in the chest. Electronically signed by: Ruiz Simon M.D. 11/30/2016 4:33 PM Dictated Date/Time: 11/30/2016 4:[address] OF THE ABDOMEN AND PELVIS WITHOUT CONTRAST, STONE PROTOCOL CLINICAL HISTORY: Bilateral flank pain. COMPARISON STUDY: CT of the chest, abdomen and pelvis May 19, [address] October 31, 2016. TECHNIQUE: Helical axial images of the abdomen and pelvis were obtained without IV or oral contrast according to renal stone protocol. FINDINGS: Visualized portions of the lower chest demonstrate a small left pleural effusion. A 2.5 cm subpleural wedge-shaped opacity with the left lower lobe shown on exam of October 31, 2016 suggests a resolving pulmonary infarct. No pneumatosis, free air or portal venous gas is present. There are several punctate left renal calculi. There are no ureteral calculi. Evaluation of the abdomen and pelvis is suboptimal on this unenhanced exam. Unenhanced images of the liver, spleen, adrenal glands and pancreas are normal. The gallbladder surgically absent. There is no evidence for a bowel obstruction. The appendix is normal. There is no lymphadenopathy or ascites. Skeletal structures are unremarkable. IMPRESSION: 1. Several punctate left renal calculi. No ureteral calculi or hydronephrosis. 2. Redemonstration of a 2.5 cm left lower lobe pulmonary infarct which was shown on CT of October 31, 2016. Small left pleural effusion. Electronically signed by: Andrei Carver M.D. 11/30/2016 5:11 PM Dictated Date/Time: 11/30/2016 5:04 PM Laboratory Results 11/30/16 16:45 11/30/16 16:45 Test 11/30/16 00:00 11/30/16 16:45 Urine Color YELLOW Urine Appearance CLEAR (CLEAR) Urine pH 5.5 (4.5-7.5) Urine Specific [place] 1.022 (1.000-1.030) Urine Protein NEG (NEG) Urine Glucose (UA) NEG (NEG) Urine Ketones NEG (NEG) Urine Occult Blood 1+ (NEG) Urine Nitrite NEG (NEG) Urine Bilirubin NEG (NEG) Urine Urobilinogen NEG (NEG) Urine Leukocyte Esterase NEG (NEG) Urine WBC (Auto) 1-5 /hpf (0-5) Urine RBC (Auto) 10-30 /hpf (0-4) Urine Hyaline Casts (Auto) 0 /lpf (0-5) Urine Epithelial Cells (Auto) 0-5 /lpf (0-5) Urine Bacteria (Auto) NEG (NEG) Red Blood Count 5.17 M/uL (4.7-6.1) Mean Corpuscular Volume 92.8 fL (80-100) Mean Corpuscular Hemoglobin 33.5 pg (25-34) Mean Corpuscular Hemoglobin Concent 36.0 g/dl (32-36) RDW Standard Deviation 41.7 fL (36.4-46.3) RDW Coefficient of Variation 12.3 % (11.5-14.5) Mean Platelet Volume 10.5 fL (7.4-10.4) Prothrombin Time 49.4 SECONDS (9.0-12.0) Prothromb Time International Ratio 4.3 (0.9-1.1) Activated Partial Thromboplast Time 45.1 SECONDS (21.0-31.0) Partial Thromboplastin Ratio 1.7 Anion Gap 7.0 mmol/L (3-11) Est Creatinine Clear Calc Drug Dose 104.5 ml/min Estimated GFR () 88.4 Estimated GFR (Non- 76.2 BUN/Creatinine Ratio 14.3 (10-20) Calcium Level 8.7 mg/dl (8.5-10.1) Total Bilirubin 0.4 mg/dl (0.2-1) Aspartate Amino Transf (AST/SGOT) 21 U/L (15-37) Alanine Aminotransferase (ALT/SGPT) 37 U/L (12-78) Alkaline Phosphatase 109 U/L (45-117) Total Protein 7.4 gm/dl (6.4-8.2) Albumin 3.8 gm/dl (3.4-5.0) Globulin 3.6 gm/dl (2.5-4.0) Albumin/Globulin Ratio 1.1 (0.9-2) Lipase 148 U/L (73-393) Chemistry Specimen Hemolysis Laboratory results reviewed by me. Medications Administered Medications (Trade) Dose Ordered Sig/Bennie Route Start Time Stop Time Status Last Admin Dose Admin Sodium Chloride 500 ml @ 999 mls/hr Q31M STAT IV 11/30/16 16:13 11/30/16 16:43 DC 11/30/16 16:46 999 MLS/HR Ondansetron HCl (Zofran Inj) 4 mg NOW STAT IV 11/30/16 16:13 11/30/16 16:16 DC 11/30/16 16:46 4 MG Sodium Chloride 1,000 ml @ 200 mls/hr Q5H STAT IV 11/30/16 16:13 11/30/16 21:12 11/30/16 16:47 200 MLS/HR Hydromorphone HCl (Dilaudid Inj) 1 mg Q30M PRN IV 11/30/16 16:15 12/14/16 16:14 11/30/16 16:46 1 MG ED Course 1611: The patient was evaluated in room B11. A complete history and physical exam was performed. 1613: Sodium Chloride 1000 ml @ 200 mls/hr IV, Zofran Injection 4 mg IV, Sodium Chloride 500 ml @ 999 mls/hr IV. 1615: Dilaudid Injection 1 mg IV. 1739: I reevaluated the patient. I discussed results and discharge instructions : He verbalized understanding and agreement. The patient is ready for discharge. Medication Reconciliation: I attest that I have personally reviewed the patient' s current medication list. Blood Pressure Screening: Patient was found to have an elevated blood pressure and was referred to their primary doctor for recheck and further treatment. Medical Decision The differential diagnoses include: musculoskeletal pain, renal colic, renal failure, urinary tract infection, hematoma, electrolyte imbalance. There is no leukocytosis or concerning anemia. No significant electrolyte abnormality or kidney failure. There is no hepatitis or pancreatitis. INR was over the therapeutic window for someone on Coumadin. Urinalysis does not show infection, some very mild hematuria was noted. Abdominal and pelvis CT shows stones within the kidneys, there was no ureteral stone. No evidence for intra- abdominal bleeding or for hematoma. The patient was not toxic or febrile. The patient presents with bilateral flank pain. The pain was reproducible on exam. Given the workup, given his exam findings, the pain is likely musculoskeletal. During the patient's ER stay, he received IV saline, IV Zofran and IV Dilaudid, he is more comfortable. The patient is being discharged, he will follow with his doctor's office. Massage, heat, [id number] pain medication was encouraged. He was told to hold his Coumadin for one day then to restart his dosing. His INR needs rechecked this week. [place] Drug Monitoring Program Search Results: patient reviewed within database, see additional documentation Drug Monitoring Findings: Hydrocodone tablet 10/21/[address] Goldman's office. Impression Primary Impression: Bilateral flank pain Scribe Attestation The scribe's documentation has been prepared under my direction and personally reviewed by me in its entirety. I confirm that the note above accurately reflects all work, treatment, procedures, and medical decision making performed by me. Departure Information Dispostion Home / Self-Care Referrals No Doctor, Assigned (PCP) Forms HOME CARE DOCUMENTATION FORM, IMPORTANT VISIT INFORMATION Patient Instructions My [facility] Additional Instructions massage, heat and gentle stretching talk with your [facility] md for further or more senior database engineer pain control hold coumadin dose tomorrow and then return to normal dosing the following day have INR rechecked later this week return for fever or worsening symptoms kidney testing and imaging was all ok today as we discussed
[2016-11-30] MEDS ORDERED: LURA80TA PO (16:33)
--- NOTE | 2016-11-30 16:35 | DIAGNOSTIC IMAGING REPORT ---
CHEST ONE VIEW PORTABLE CLINICAL HISTORY: FLANK PAIN/HEMATURIA COMPARISON STUDY: 10/31/2016 FINDINGS: The cardiac and mediastinal contours are normal. There is no evidence of focal pulmonary consolidation. There is no evidence of failure. No pleural effusions are visualized.[ There is no free intraperitoneal air IMPRESSION: No active disease in the chest. Electronically signed by: Ruiz Simon M.D. 11/30/2016 4:33 PM Dictated Date/Time: 11/30/2016 4:33 PM
[2016-11-30 16:57] LABS: MEAN CELL VOLUME 92.8 fL (80-100); MEAN CORPUSCULAR HEMOGLOBIN 33.5 pg (25-34); MEAN PLATELET VOLUME 10.5 fL (7.4-10.4); PLATELET COUNT 233 K/uL (130-400); RED BLOOD COUNT 5.17 M/uL (4.7-6.1); WHITE BLOOD COUNT 10.17 K/uL (4.8-10.8)
--- NOTE | 2016-11-30 17:12 | DIAGNOSTIC IMAGING REPORT ---
CT OF THE ABDOMEN AND PELVIS WITHOUT CONTRAST, STONE PROTOCOL CLINICAL HISTORY: Bilateral flank pain. COMPARISON STUDY: CT of the chest, abdomen and pelvis May 19, [address] October 31, 2016. TECHNIQUE: Helical axial images of the abdomen and pelvis were obtained without IV or oral contrast according to renal stone protocol. FINDINGS: Visualized portions of the lower chest demonstrate a small left pleural effusion. A 2.5 cm subpleural wedge-shaped opacity with the left lower lobe shown on exam of October 31, 2016 suggests a resolving pulmonary infarct. No pneumatosis, free air or portal venous gas is present. There are several punctate left renal calculi. There are no ureteral calculi. Evaluation of the abdomen and pelvis is suboptimal on this unenhanced exam. Unenhanced images of the liver, spleen, adrenal glands and pancreas are normal. The gallbladder surgically absent. There is no evidence for a bowel obstruction. The appendix is normal. There is no lymphadenopathy or ascites. Skeletal structures are unremarkable. IMPRESSION: 1. Several punctate left renal calculi. No ureteral calculi or hydronephrosis. 2. Redemonstration of a 2.5 cm left lower lobe pulmonary infarct which was shown on CT of October 31, 2016. Small left pleural effusion. Electronically signed by: Andrei Carver M.D. 11/30/2016 5:11 PM Dictated Date/Time: 11/30/2016 5:04 PM
[2016-11-30 17:13] LABS: INR 4.3 (0.9-1.1); PARTIAL THROMBOPLASTIN RATIO 1.7; PROTHROMBIN TIME (PATIENT) 49.4 SECONDS (9.0-12.0)
[2016-11-30 17:19] LABS: URINE APPEARANCE CLEAR (CLEAR); URINE BILIRUBIN NEG (NEG); URINE COLOR YELLOW; URINE EPITHELIAL CELL AUTO 0-5 /lpf (0-5); URINE NITRITE NEG (NEG); URINE PH 5.5 (4.5-7.5); URINE SPECIFIC GRAVITY 1.022 (1.000-1.030); UROBILINOGEN NEG (NEG); ZZUR CULT IF INDIC CLEAN CATCH NO
[2016-11-30 17:24] LABS: MANUAL MICROSCOPIC REQUIRED? NO; REVIEW REQ? NO
[2016-11-30 17:33] LABS: ALB/GLOB RATIO 1.1 (0.9-2); BUN/CREATININE RATIO 14.3 (10-20); CALCIUM 8.7 mg/dl (8.5-10.1); CREATININE 1.1 mg/dl (0.60-1.40); POTASSIUM 4.3 mmol/L (3.5-5.1)
[2016-11-30 18:05] VITALS: BP 137/81; PULSE 78; O2SAT 98
[2017-03-03] MEDS ORDERED: VORT1TAB3 PO (07:47)
[2017-03-11] MEDS ORDERED: ENOX120I SQ (09:44)
[2017-03-11] MEDS ORDERED: OXYC-57 PO ×2 (13:12→13:16)
[2017-03-11] MEDS ORDERED: KETO10TA PO (13:12)
== END 2016-11-30 18:04 | disposition home or self-care (01) ==
LOC: C.EDB 16:00
DX: R10.9 Unspecified abdominal pain (principal); Z87.442 Personal history of urinary calculi; Z86.718 Personal history of other venous thrombosis and embolism; K21.9 Gastro-esophageal reflux disease without esophagitis; E03.9 Hypothyroidism, unspecified; M17.9 Osteoarthritis of knee, unspecified; F17.210 Nicotine dependence, cigarettes, uncomplicated; Z79.01 Long term (current) use of anticoagulants; Z79.899 Other long term (current) drug therapy

== ENCOUNTER → 2017-03-01 | Outpatient (CLI) | payer BC, OTHER ==
[~2017-03-01] MED LIST changes: -CMD25 PO; -CMD5 PO; +ENOX120I SQ; -FLV1 PO; +KETO10TA PO; -LEVO150T9 PO; +LEVO200T6 PO; -LTD/40 PO; +LURA80TA PO; -LVNIS120 SC; -LXP/20 PO; +OXYC-57 PO; -PANT40TA2 PO; +PRT/40 PO; -THM100 PO; +VORT10TA12 PO; +VORT1TAB3 PO; +WARF5TAB90 PO
== END | disposition home or self-care (01) ==
LOC: C.CPL 12:13
PROVIDERS: ATTEND Orthopaedic Surgery
DX: M75.01 Adhesive capsulitis of right shoulder (principal)

== ENCOUNTER → 2017-03-11 | Day surgery (SDC) | payer BC, OTHER ==
[2017-03-03 07:48] VITALS: Ht 185.4 cm; Wt 122.7 kg
[~2017-03-11] VITALS: Ht 185.4 cm; Wt 122.7 kg
[~2017-03-11] MED LIST changes: +ACETAMINOPHEN 1000 MG/100 ML IV IV ONE; +ATROPINE SULFATE 0.1 MG/ML 5ML SYR IV PRN; +BUPIVACAINE/EPINEPHRINE 0.25% 1:200,000 30 ML VIAL ONE; +CEFAZOLIN 3000 MG/65 ML D5W IV SCH; +DEXAMETHASONE SOD INJ 4 MG/ML VIAL ONE; +EpHEDrine SULFATE INJ 50 MG/ML AMP IV PRN; +EpINEphrine INJ 1MG/ML AMP 1 MG/ML AMP ONE; +FENTANYL CITRATE INJ 50 MCG/1 ML 2 ML VIAL IV PRN; +FENTANYL CITRATE INJ 50 MCG/1 ML 2 ML VIAL ONE; +HYDROmorphone INJ 1 MG/ML SYR IV PRN; +LACTATED RINGER'S 1000ML 1,000 ML IV SCH; +LIDOCAINE HCL 2% 2 ML VIAL (20MG/ML) ONE; +METHYLPREDNISOLONE ACETATE 80 MG/ML VIAL ONE; +MIDAZOLAM HCL 1 MG/ML 2ML VIAL ONE; +ONDANSETRON INJ 2 MG/ML 2 ML VIAL IV PRN; +ONDANSETRON INJ 2 MG/ML 2 ML VIAL ONE; +OXYCODONE/ACETAMINOPHEN 5-325 TAB PO PRN; +PROPOFOL IV EMULSION 10 MG/ML 20 ML VIAL IV ONE; +ROPIVACAINE 0.5% 5 MG/ML 30 ML VIAL ONE; +SODIUM CHLORIDE 0.9% 1000ML 1,000 ML IV SCH; -VORT10TA12 PO
--- NOTE | 2017-03-11 09:22 | History & Physical Bridge - [place] ---
H&P Re-Evaluation Bridge Note: I have examined the patient, reviewed the History & Physical and in the interval since the performance of the History & Physical I have noted the following changes of clinical significance: No changes noted
[2017-03-11 09:50] LABS: PARTIAL THROMBOPLASTIN RATIO 1.1; PROTHROMBIN TIME (PATIENT) 10.6 SECONDS (9.0-12.0)
--- NOTE | 2017-03-11 13:02 | [facility] Post Operative Brief Note ---
Immediate Operative Summary Operative Date Mar 11, 2017. Pre-Operative Diagnosis Right Shoulder Adhesive Capsulitis Post-Operative Diagnosis Same Procedure(s) Performed Right Shoulder Arthroscopic Capsular Release Surgeon Dr. Herring Pedigree Tracer Surgeon(s) Kobi Dobson PA-C Estimated Blood Loss 5 ml Findings as above Specimens None Complication(s) None Disposition Recovery Room / PACU
--- NOTE | 2017-03-11 13:15 | Discharge Instructions-SurgCtr ---
Discharge Instructions Date of Service Mar 11, 2017. Visit Reason for Visit: Right Shoulder Adhesive Capsulitis Discharge Discharge Diagnosis / Problem: SAME ABOVE Discharge Goals Goal(s): Decrease discomfort, Improve function Medications Stopped Medications Name(s): coumadin- last dose wednesday Activity Recommendations Activity Limitations: as noted below Lifting Limitations: gradually increase as tolerated Exercise/Sports Limitations: gradually increase as tolerated (2) Anesthesia . Post Anesthesia Instructions: If you have had General Anesthesia or IV Sedation: * Do not drive today. * Resume driving when surgeon permits. * Do not make important decisions or sign legal documents today. * Call surgeon for: 1. Temperature elevations greater than 101 degrees F. 2. Uncontrollable pain. 3. Excessive bleeding. 4. Persistent nausea and vomiting. 5. Medication intolerance (nausea, vomiting or rash). * For nausea and vomiting use only clear liquids such as: tea, soda, bouillon until nausea subsides, then gradually increase diet as tolerated. * If you have any concerns or questions, call your surgeon's office. If physician is unavailable and it is an emergency, call 911 or go to the nearest emergency room. . Instructions / Follow-Up Instructions / Follow-Up MEDICATIONS: * Resume previous medications unless instructed otherwise by your surgeon. * Always take pain medication on a full stomach or with food to avoid upset stomach. * Do not drink alcohol or drive while taking narcotics. * Ibuprofen or Tylenol may be taken if narcotic not needed. SPECIAL CARE INSTRUCTIONS: __ None _X_ Keep extremity elevated and iced x 48 hours; apply ice 20-30 minutes 8-10 times/day. May remove at night. _X_ Sling (WEAR NEEDED FOR COMFORT) __24 hrs/day __ Remove at night __ Shoulder Immobilizer __ 24 hrs/day __ Remove at night _X_ Dressing __ Maintain until seen in office, may shower with plastic over site _X_ Remove dressings in 24-48 hours and then may shower _X_ Cover incisions with band-aids after showering __ Do not remove steri-strips Call physician if chills or temperature rises above 102 degrees or pain unrelieved by prescribed pain medications at . . Diet Recommendations Home Diet: no limitations Procedures Procedures Performed: Right Shoulder Arthroscopic Capsular Release Pending Studies Studies pending at discharge: no Work Instructions Return To Work: 3 days (WHEN PAIN IS CONTROLLED ) Medical Emergencies . Who to Call and When: Medical Emergencies: If at any time you feel your situation is an emergency, please call 911 immediately. . Non-Emergent Contact Non-Emergency issues call your: Primary Care Provider Call Non-Emergent contact if: you have a fever, temperature is above 101.5 . . "Provider Documentation" section prepared by Julian Dobson. .
--- NOTE | 2017-03-11 14:06 | OPERATIVE REPORT ---
DATE OF OPERATION: 03/11/2017 PREOPERATIVE DIAGNOSIS: Adhesive capsulitis of the right shoulder. POSTOPERATIVE DIAGNOSIS: Same. PROCEDURE: Right shoulder diagnostic arthroscopy with extensive debridement, lysis of adhesions and manipulation under anesthesia. SURGEON: Dr. Neil Herring. IT OPERATIONS MANAGER: Polo Dobson PA-C, whose assistance was necessary for positioning the arm and helping with instrumentation. ANESTHESIA: General with a right interscalene nerve block. COMPLICATIONS: None. CONDITION: Stable to PACU. INDICATIONS: Edin is a pleasant 51-year-old male who presented to my office with increasing pain and tightness of his right shoulder. MRI and clinical examination were diagnostic for adhesive capsulitis of the right shoulder. After failing conservative treatment, he elected to undergo a capsular release. OPERATION AND FINDINGS: On 03/11/2017 he arrived at [facility] for the above procedure. He was seen in the preoperative holding area and the operative extremity was identified and signed. He was given a preoperative antibiotic and a right interscalene nerve block. He was taken back to the operating room, laid on the table in supine position and put under general anesthesia. He was then put into the beachchair position. The right shoulder was prepped and draped in sterile fashion. Time-out was done and the patient and operative extremity was properly identified. On preoperative physical examination, he only had about 40 degrees of abduction, 0 degrees of external rotation and 0 degrees of internal rotation. Gentle manipulation was done under anesthesia, but it was very difficult to get any motion. The scope was then put into the posterior portal. Diagnostic arthroscopy showed no cartilage damage to the humeral head or the glenoid. There was significant redness and tightness of the rotator interval as well as the middle glenohumeral ligament and the inferior glenohumeral ligament. An anterior portal was made. A shaver was used to start debridement of some of the intra-articular structures. An ablator was then used to completely release the entire rotator interval from the biceps tendon to the undersurface of the coracoid. Time was then spent releasing the entire middle and inferior glenohumeral ligaments. Care was taken not to disrupt the axillary nerve or the subscapularis. A shaver was then used to remove any remnant tissue. Significant time was spent debriding back the capsular tissue to stable margins. Care was taken with this not to disrupt the axillary nerve or the subscapularis as well. Time was also spent releasing the superior capsule which was also very red and inflamed. The biceps tendon was pulled into the joint. There was no evidence of pathology. The supraspinatus, infraspinatus, teres minor and subscapularis were all checked and intact. Arthroscopic instruments were removed from the shoulder. Another manipulation was done under anesthesia. I was able to get full range of motion of the shoulder. The portal sites were then closed with 3-0 nylon. The shoulder was then injected with 80 mg of Depo-Medrol and 5 mL of Marcaine. He was then placed in a soft dressing and a regular arm sling. He was then extubated, transferred to a [facility] and taken to the postanesthesia care unit in stable condition. He tolerated the procedure well. I attest to the content of the Intraoperative Record and any orders documented therein. Any exception s are noted below.
[2017-03-11 14:11] VITALS: TEMP 36.1
[2017-03-11 14:54] VITALS: BP 151/93; O2SAT 94
--- NOTE | 2017-03-11 15:08 | Anesthesiology Progress Note ---
Anesthesia Post Op Note Date & Time Mar 11, 2017 at 15:08 Vital Signs Pain Intensity: 5 Vital Signs Past 12 Hours Date Time Temp Pulse Resp B/P (MAP) Pulse Ox O2 Delivery O2 Flow Rate FiO2 03/11/17 14:54 20 151/93 (112) 94 Room Air 03/11/17 14:11 36.1 53 20 161/104 (123) 93 Room Air 03/11/17 14:06 155/104 03/11/17 14:04 50 17 96 03/11/17 14:04 51 17 03/11/17 14:03 54 14 94 03/11/17 14:03 51 14 03/11/17 14:02 36.6 95 Room Air 03/11/17 14:01 161/92 03/11/17 13:58 50 16 03/11/17 13:58 48 16 95 03/11/17 13:57 49 19 03/11/17 13:57 51 19 94 03/11/17 13:56 151/99 03/11/17 13:52 53 13 94 03/11/17 13:52 55 13 03/11/17 13:51 157/80 03/11/17 13:47 52 17 03/11/17 13:47 52 17 95 03/11/17 13:46 170/91 03/11/17 13:42 54 14 94 03/11/17 13:42 55 14 03/11/17 13:41 160/103 03/11/17 13:37 50 18 96 03/11/17 13:37 50 18 03/11/17 13:36 52 17 161/98 96 03/11/17 13:36 52 17 03/11/17 13:31 61 15 158/94 96 03/11/17 13:31 61 15 03/11/17 13:27 177/108 03/11/17 13:26 46 16 03/11/17 13:26 49 16 98 03/11/17 13:21 50 16 03/11/17 13:21 51 16 178/110 100 03/11/17 13:20 48 15 03/11/17 13:20 50 15 100 03/11/17 13:16 169/105 03/11/17 13:15 46 16 03/11/17 13:15 46 16 99 03/11/17 13:12 164/84 03/11/17 13:10 48 21 03/11/17 13:10 47 21 99 03/11/17 13:07 182/102 03/11/17 13:06 36.2 53 12 182/102 96 Mask 6 03/11/17 13:05 53 18 98 03/11/17 13:05 53 18 03/11/17 12:20 0 03/11/17 12:19 12 03/11/17 12:18 49 27 99 03/11/17 12:18 49 03/11/17 12:15 130/90 (103) 03/11/17 12:13 45 29 100 03/11/17 12:13 45 03/11/17 12:12 44 03/11/17 12:12 44 18 98 03/11/17 12:07 0 03/11/17 12:02 0 03/11/17 11:57 0 03/11/17 09:46 36.5 46 22 139/93 (108) 95 Room Air Notes Mental Status: alert / awake / arousable, participated in evaluation Pt Amnestic to Procedure: Yes Nausea / Vomiting: adequately controlled Pain: adequately controlled Airway Patency, RR, SpO2: stable & adequate BP & HR: stable & adequate Hydration State: stable & adequate Anesthetic Complications: no major complications apparent
== END | disposition home or self-care (01) ==
LOC: X.SURG 08:58
PROVIDERS: ATTEND Orthopaedic Surgery
DX: M75.01 Adhesive capsulitis of right shoulder (principal); E03.9 Hypothyroidism, unspecified; K21.9 Gastro-esophageal reflux disease without esophagitis; F17.210 Nicotine dependence, cigarettes, uncomplicated; Z86.711 Personal history of pulmonary embolism; Z79.01 Long term (current) use of anticoagulants; Z79.899 Other long term (current) drug therapy

== ENCOUNTER 2018-02-07 17:26 | Observation (INO) | payer BC, OTHER ==
[~2018-02-07] VITALS: Ht 185.4 cm; Wt 119.9 kg
[~2018-02-07 17:26] MED LIST changes: -ACETAMINOPHEN 1000 MG/100 ML IV IV ONE; -ATROPINE SULFATE 0.1 MG/ML 5ML SYR IV PRN; -BUPIVACAINE/EPINEPHRINE 0.25% 1:200,000 30 ML VIAL ONE; -CEFAZOLIN 3000 MG/65 ML D5W IV SCH; -DEXAMETHASONE SOD INJ 4 MG/ML VIAL ONE; -EpHEDrine SULFATE INJ 50 MG/ML AMP IV PRN; -EpINEphrine INJ 1MG/ML AMP 1 MG/ML AMP ONE; -FENTANYL CITRATE INJ 50 MCG/1 ML 2 ML VIAL IV PRN; -FENTANYL CITRATE INJ 50 MCG/1 ML 2 ML VIAL ONE; -HYDROmorphone INJ 1 MG/ML SYR IV PRN; -KETO10TA PO; -LACTATED RINGER'S 1000ML 1,000 ML IV SCH; -LIDOCAINE HCL 2% 2 ML VIAL (20MG/ML) ONE; -METHYLPREDNISOLONE ACETATE 80 MG/ML VIAL ONE; -MIDAZOLAM HCL 1 MG/ML 2ML VIAL ONE; -ONDANSETRON INJ 2 MG/ML 2 ML VIAL IV PRN; -ONDANSETRON INJ 2 MG/ML 2 ML VIAL ONE; -OXYCODONE/ACETAMINOPHEN 5-325 TAB PO PRN; +PANT40TA2 PO; -PROPOFOL IV EMULSION 10 MG/ML 20 ML VIAL IV ONE; -PRT/40 PO; -ROPIVACAINE 0.5% 5 MG/ML 30 ML VIAL ONE; -SODIUM CHLORIDE 0.9% 1000ML 1,000 ML IV SCH
[2018-02-07] MEDS ORDERED: ASPIRIN 81 MG CHEW PO STA (17:45)
--- NOTE | 2018-02-07 17:57 | EMERGENCY ROOM VISIT NOTE ---
History Report prepared by Mekhi: Clary Mar Under the Supervision of: Dr. Kel Holman M.D. First contact with patient: 17:35 Chief Complaint: CHEST PAIN Stated Complaint: CHEST PAIN History of Present Illness The patient is a 52 year old male who presents to the Emergency Room with complaints of an episode of chest pain that onset around 1630. He notes that he was drinking a six pack of alcohol when the pain onset. He states that he is not currently in any pain. The patient notes that he has a history of blood clots. He notes that this pain is similar to the sharp pain he felt in the past with a blood clot. He complains of shortness of breath. The patient denies vomiting. He states that he takes Warfarin for hypertension, and his last measured Coumadin level a month ago was around 1.8. He denies any recent falls. He also denies taking aspirin today. He states that he takes a thyroid medication. The patient notes that he is a smoker. Source of History: patient Onset: 1630 Position: chest Quality: sharp Timing: other (episode) Associated Symptoms: + SOB, No vomiting Review of Systems See HPI for pertinent positives and negatives. A total of ten systems were reviewed and were otherwise negative. Past Medical & Surgical Medical Problems: (1) Esophageal Reflux (2) Hx of blood clots (3) Hypothyroidism Nos (4) Osteoarthritis of right knee (5) Tobacco Use Disorder Surgical Problems: (1) History of cholecystectomy Family History FHx: Alzheimer's disease Social History Smoking Status: Current Every Day Smoker Alcohol Use: none Drug Use: none Marital Status: Housing Status: lives with family Occupation Status: employed Current/Historical Medications Scheduled Bupropion Hcl (Bupropion Hcl Xl), 150 MG PO DAILY Levothyroxine Sodium (Levothyroxine Sodium), 200 MCG PO QAM Lurasidone Hcl (Latuda), 80 MG PO HS Pantoprazole (Protonix), 40 MG PO QAM Vortioxetine HBr (Trintellix), 20 MG PO QAM Warfarin Sodium (Warfarin Sodium), 15 MG PO 2XWK Warfarin Sodium (Warfarin Sodium), 10 MG PO 5XWK Allergies Coded Allergies: No Known Allergies (Unverified , 03/11/17) Physical Exam Vital Signs Date Time Temp Pulse Resp B/P (MAP) Pulse Ox O2 Delivery O2 Flow Rate FiO2 02/07/18 20:48 56 16 157/98 100 Room Air 02/07/18 20:32 56 157/98 97 Room Air 02/07/18 20:28 57 97 02/07/18 20:07 56 128/86 97 18 19:53 51 98 18 19:51 129/83 98 Room Air 02/07/18 19:31 111/67 02/07/18 19:23 270 02/07/18 19:18 53 02/07/18 19:13 53 16 112/75 98 Room Air 02/07/18 18:21 54 17 02/07/18 18:16 56 18 02/07/18 18:11 52 16 02/07/18 18:10 52 02/07/18 18:06 53 17 121/71 02/07/18 18:01 56 13 02/07/18 17:56 97 Room Air 02/07/18 17:56 97 Room Air 02/07/18 17:31 36.7 57 18 131/87 97 Room Air Physical Exam Physical Exam GENERAL: He is oriented to person, place, and time. He appears well-developed and well-nourished. He does not appear distressed. HENT: Exam performed. Head: Normocephalic and atraumatic. Right Ear: External ear normal. No mastoid tenderness. Left Ear: External ear normal. No mastoid tenderness. Mouth/Throat: The oropharynx is clear and moist. No trismus in the jaw. No dental abscesses or uvula swelling. No oropharyngeal exudate or tonsillar abscesses. EYES: Conjunctivae and EOM are normal. Pupils are equal, round, and reactive to light. Right eye exhibits no discharge. Left eye exhibits no discharge. No scleral icterus. NECK: Normal range of motion. Neck supple. No JVD present. No spinous process tenderness present. No carotid bruit present. No rigidity. No tracheal deviation and normal range of motion present. No Brudzinski's sign and no Kernig 's sign noted. CV: Normal rate, regular rhythm, normal heart sounds and intact distal pulses. There is no peripheral edema. Palpable radial pulses bue. PULM/CHEST: Effort normal and breath sounds normal. No respiratory distress. No stridor. He has no wheezes. He has no rales. Chest Wall: He exhibits no tenderness. ABD: The abdomen is soft. Bowel sounds are normal. He has no distension. No mass is present. There is no tenderness. There is no rebound, no guarding, no Brown's sign and no tenderness at McBurney's point. Rovsig negative. MUSC/SKEL: Normal range of motion. There is no peripheral edema, tenderness or deformity. LYMPH: No cervical adenopathy. NEURO: He is alert and oriented to person, place, and time. He has normal strength. No cranial nerve deficit or sensory deficit. Coordination and gait normal. GCS eye subscore is 4. GCS verbal subscore is 5. GCS motor subscore is 6. Cerebellar tests wnl. SKIN: Skin is warm and dry. He is not diaphoretic. PSYCH: He has a normal mood and affect. Behavior is normal. Judgment and thought content normal. Medical Decision & Procedures ER Provider Diagnostic Interpretation: Radiology results as stated below per my review and radiologist interpretation: CHEST ONE VIEW PORTABLE CLINICAL HISTORY: 52 years-old Male presenting with CHEST PAIN. TECHNIQUE: Portable upright AP view of the chest was obtained. COMPARISON: 11/30/2016. FINDINGS: Cardiomediastinal silhouette normal. No focal opacity. No large effusion or pneumothorax. Osseous structures normal. Upper abdomen normal. IMPRESSION: 1. No acute cardiopulmonary disease. Electronically signed by: Sonny Ram M.D. 02/07/2018 6:01 PM Dictated Date/Time: 02/07/2018 6:[address] ANGIOGRAPHY OF THE CHEST, PULMONARY EMBOLUS PROTOCOL CLINICAL HISTORY: Chest pain. COMPARISON STUDY: Chest radiograph October 31, 2016 and chest radiograph performed earlier today. TECHNIQUE: Following IV administration of 100 mL of Optiray-320, helical axial images of the chest were obtained utilizing the pulmonary embolus protocol. Maximal intensity projections and sagittal and coronal reformats were viewed on an independent 3D workstation. IV contrast was administered without complication. A dose lowering technique was utilized adhering to the principles of ALARA. CT DOSE: 724.62 mGy.cm FINDINGS: No pulmonary emboli are identified. There is no evidence for thoracic aortic dissection. Minimal dilatation of the ascending aorta, measuring 4 cm, is unchanged. Size of the heart is at the upper limits of normal. There is no pericardial effusion. No pneumothorax or pleural effusion is present. There is no consolidation to suggest pneumonia. Upper abdomen is unremarkable. Gallbladder is surgically absent. No enlarged thoracic lymph nodes are present. IMPRESSION: 1. No pulmonary emboli identified. 2. No acute intrathoracic findings. Electronically signed by: Andrei Carver M.D. 02/07/2018 8:31 PM Dictated Date/Time: 02/07/2018 8:23 PM Laboratory Results 02/07/18 18:15 Red Blood Count 5.13, Mean Corpuscular Volume 92.8, Mean Corpuscular Hemoglobin 32.9, Mean Corpuscular Hemoglobin Concent 35.5, Mean Platelet Volume 11.5, Neutrophils (%) (Auto) 70.6, Lymphocytes (%) (Auto) 22.2, Monocytes (%) (Auto) 5.9, Eosinophils (%) (Auto) 0.9, Basophils (%) (Auto) 0.2, Neutrophils # (Auto) 6.88, Lymphocytes # (Auto) 2.17, Monocytes # (Auto) 0.58, Eosinophils # (Auto) 0.09, Basophils # (Auto) 0.02 02/07/18 18:15 Test 02/07/18 18:15 White Blood Count 9.76 K/uL (4.8-10.8) Red Blood Count 5.13 M/uL (4.7-6.1) Hemoglobin 16.9 g/dL (14.0-18.0) Hematocrit 47.6 % (42-52) Mean Corpuscular Volume 92.8 fL (80-100) Mean Corpuscular Hemoglobin 32.9 pg (25-34) Mean Corpuscular Hemoglobin Concent 35.5 g/dl (32-36) Platelet Count 188 K/uL (130-400) Mean Platelet Volume 11.5 fL (7.4-10.4) Neutrophils (%) (Auto) 70.6 % Lymphocytes (%) (Auto) 22.2 % Monocytes (%) (Auto) 5.9 % Eosinophils (%) (Auto) 0.9 % Basophils (%) (Auto) 0.2 % Neutrophils # (Auto) 6.88 K/uL (1.4-6.5) Lymphocytes # (Auto) 2.17 K/uL (1.2-3.4) Monocytes # (Auto) 0.58 K/uL (0.11-0.59) Eosinophils # (Auto) 0.09 K/uL (0-0.5) Basophils # (Auto) 0.02 K/uL (0-0.2) RDW Standard Deviation 41.8 fL (36.4-46.3) RDW Coefficient of Variation 12.4 % (11.5-14.5) Immature Granulocyte % (Auto) 0.2 % Immature Granulocyte # (Auto) 0.02 K/uL (0.00-0.02) Prothrombin Time 14.0 SECONDS (9.0-12.0) Prothromb Time International Ratio 1.3 (0.9-1.1) Activated Partial Thromboplast Time 30.3 SECONDS (21.0-31.0) Partial Thromboplastin Ratio 1.2 Anion Gap 11.0 mmol/L (3-11) Est Creatinine Clear Calc Drug Dose 120.9 ml/min Estimated GFR () 104.8 Estimated GFR (Non- 90.4 BUN/Creatinine Ratio 11.4 (10-20) Calcium Level 8.5 mg/dl (8.5-10.1) Total Bilirubin 0.5 mg/dl (0.2-1) Direct Bilirubin 0.1 mg/dl (0-0.2) Aspartate Amino Transf (AST/SGOT) 18 U/L (15-37) Alanine Aminotransferase (ALT/SGPT) 33 U/L (12-78) Alkaline Phosphatase 85 U/L (45-117) Troponin I < 0.015 ng/ml (0-0.045) Total Protein 7.2 gm/dl (6.4-8.2) Albumin 3.7 gm/dl (3.4-5.0) Lipase 119 U/L (73-393) Laboratory results reviewed by me Medications Administered Medications (Trade) Dose Ordered Sig/Bennie Route Start Time Stop Time Status Last Admin Dose Admin Aspirin (Aspirin Chew) 324 mg NOW STAT PO 02/07/18 17:45 02/07/18 17:46 DC 02/07/18 17:58 324 MG Nitroglycerin (Nitrostat Tab) 0.4 mg NOW STAT SL 02/07/18 18:43 02/07/18 18:44 DC 02/07/18 18:47 0.4 MG Sodium Chloride 1,000 ml @ 125 mls/hr Q8H STAT IV 02/07/18 18:43 02/08/18 02:42 8/20/18 19:06 125 MLS/HR Morphine Sulfate (MoRPHine SULFATE INJ) 4 mg NOW STAT IV 02/07/18 19:53 02/07/18 19:54 DC 02/07/18 19:58 4 MG Hydromorphone HCl (Dilaudid Inj) 1 mg STK-MED ONCE .ROUTE 02/07/18 21:11 02/07/18 21:12 DC 02/07/18 21:24 1 MG ECG Per My Interpretation Indication: chest pain Rate (beats per minute): 54 Rhythm: sinus rhythm Findings: 1st degree AV block, other (240 QRS and QTC within normal limits. No ST segment elevtaion or depression. ) ED Course 1735: The patient was evaluated in room B5. A complete history and physical exam was performed. 1744: Ordered Aspirin 324 mg PO. 1842: Ordered Sodium Chloride 1,000 ml @ 125 mls/hr IV, Nitrostat Tab 0.4 mg SL. 1952: States he continues have chest pain. Ordered Morphine Sulfate 4 mg IV. 1944: Vital signs are stable. Lab and imaging are within normal limits. 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 Suggested impatient observation to rule out ACS, which the patient agreed to. Dr. Sandip Del Angel accepted the admission. Medical Decision Vital signs are stable. Lab and imaging are within normal limits. 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 Suggested impatient observation to rule out ACS, which the patient agreed to. Dr. Sandip Del Angel accepted the admission. Medication Reconcilliation Current Medication List: was personally reviewed by ar Blood Pressure Screening Patient's blood pressure: Elevated blood pressure Blood pressure disposition: Referred to PCP (Referred to hospitalist ) Consults Time Called: 1939 Consulting Physician: Dr. Sandip Del Angel Returned Call: 1944 1944: Vital signs are stable. Lab and imaging are within normal limits. 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 Suggested impatient observation to rule out ACS, which the patient agreed to. Dr. Sandip Del Angel accepted the admission. Impression Primary Impression: Chest pain, unspecified Scribe Attestation The scribe's documentation has been prepared under my direction and personally reviewed by me in its entirety. I confirm that the note above accurately reflects all work, treatment, procedures, and medical decision making performed by me. The chart was completed utilizing [employer] Speech voice recognition software. Grammatical errors, random word insertions, pronoun errors, and incomplete sentences are an occasional consequence of this system due to software limitations, ambient noise, and hardware issues. Any formal questions or concerns about the content, text, or information contained within the body of this dictation should be directly addressed to the physician for clarification. Departure Information Dispostion Being Evaluated By Hospitalist Referrals Mikaela Mac D.O. (PCP) Forms Call Back Authorization, HOME CARE DOCUMENTATION FORM, IMPORTANT VISIT INFORMATION Patient Instructions [facility] Problem Qualifiers Primary Impression: Chest pain, unspecified Chest pain type: unspecified Qualified Codes: R07.9 - Chest pain, unspecified
--- NOTE | 2018-02-07 18:03 | DIAGNOSTIC IMAGING REPORT ---
CHEST ONE VIEW PORTABLE CLINICAL HISTORY: 52 years-old Male presenting with CHEST PAIN. TECHNIQUE: Portable upright AP view of the chest was obtained. COMPARISON: 11/30/2016. FINDINGS: Cardiomediastinal silhouette normal. No focal opacity. No large effusion or pneumothorax. Osseous structures normal. Upper abdomen normal. IMPRESSION: 1. No acute cardiopulmonary disease. Electronically signed by: Sonny Ram M.D. 02/07/2018 6:01 PM Dictated Date/Time: 02/07/2018 6:00 PM
[2018-02-07 18:30] LABS: BASO % 0.2 %; BASO ABS # 0.02 K/uL (0-0.2); EOS % 0.9 %; EOS ABS # 0.09 K/uL (0-0.5); HEMATOCRIT 47.6 % (42-52); HEMOGLOBIN 16.9 g/dL (14.0-18.0); IG# 0.02 K/uL (0.00-0.02); LYMPH % 22.2 %; LYMPH ABS # 2.17 K/uL (1.2-3.4); MEAN CELL VOLUME 92.8 fL (80-100); MEAN CORPUSCULAR HEMOGLOBIN 32.9 pg (25-34); MEAN CORPUSCULAR HGB CONC 35.5 g/dl (32-36); MEAN PLATELET VOLUME 11.5 fL (7.4-10.4); MONO % 5.9 %; MONO ABS # 0.58 K/uL (0.11-0.59); NEUT % 70.6 %; NEUT ABS # 6.88 K/uL (1.4-6.5); PLATELET COUNT 188 K/uL (130-400); RED CELL DISTRIBUTION WIDTH CV 12.4 % (11.5-14.5); RED CELL DISTRIBUTION WIDTH SD 41.8 fL (36.4-46.3); WHITE BLOOD COUNT 9.76 K/uL (4.8-10.8)
[2018-02-07] MEDS ORDERED: BUPR150T5 PO (18:42)
[2018-02-07] MEDS ORDERED: PANT1TAB3 PO (18:42)
[2018-02-07] MEDS ORDERED: WARF-246 PO ×2 (18:42)
[2018-02-07] MEDS ORDERED: SODIUM CHLORIDE 0.9% 1000ML 1,000 ML IV STA (18:43)
[2018-02-07] MEDS ORDERED: NITROGLYCERIN 0.4 MG SL PER TAB CHARGE SL STA (18:43)
[2018-02-07 18:50] LABS: INR 1.3 (0.9-1.1); PTT PATIENT 30.3 SECONDS (21.0-31.0)
[2018-02-07 18:55] LABS: ALBUMIN 3.7 gm/dl (3.4-5.0); ALKALINE PHOSPHATASE 85 U/L (45-117); ALT/SGPT 33 U/L (12-78); AST/SGOT 18 U/L (15-37); BLOOD UREA NITROGEN 11 mg/dl (7-18); CALCIUM 8.5 mg/dl (8.5-10.1); CARBON DIOXIDE 21 mmol/L (21-32); CREATININE 0.95 mg/dl (0.60-1.40); GLUCOSE 95 mg/dl (70-99); LIPASE 119 U/L (73-393); POTASSIUM 3.7 mmol/L (3.5-5.1); SODIUM 140 mmol/L (136-145); TOTAL PROTEIN 7.2 gm/dl (6.4-8.2)
[2018-02-07] MEDS ORDERED: OPTIRAY 320 IV PRN (19:00)
[2018-02-07] MEDS ORDERED: MoRPHine SULFATE 4 MG/ML 1 ML CARP\\VIAL IV STA (19:53)
--- NOTE | 2018-02-07 20:32 | DIAGNOSTIC IMAGING REPORT ---
CT ANGIOGRAPHY OF THE CHEST, PULMONARY EMBOLUS PROTOCOL CLINICAL HISTORY: Chest pain. COMPARISON STUDY: Chest radiograph October 31, 2016 and chest radiograph performed earlier today. TECHNIQUE: Following IV administration of 100 mL of Optiray-320, helical axial images of the chest were obtained utilizing the pulmonary embolus protocol. Maximal intensity projections and sagittal and coronal reformats were viewed on an independent 3D workstation. IV contrast was administered without complication. A dose lowering technique was utilized adhering to the principles of ALARA. CT DOSE: 724.62 mGy.cm FINDINGS: No pulmonary emboli are identified. There is no evidence for thoracic aortic dissection. Minimal dilatation of the ascending aorta, measuring 4 cm, is unchanged. Size of the heart is at the upper limits of normal. There is no pericardial effusion. No pneumothorax or pleural effusion is present. There is no consolidation to suggest pneumonia. Upper abdomen is unremarkable. Gallbladder is surgically absent. No enlarged thoracic lymph nodes are present. IMPRESSION: 1. No pulmonary emboli identified. 2. No acute intrathoracic findings. Electronically signed by: Andrei Carver M.D. 02/07/2018 8:31 PM Dictated Date/Time: 02/07/2018 8:23 PM
[2018-02-07] MEDS ORDERED: HYDROmorphone INJ 1 MG/ML SYR ONE (21:11)
[2018-02-07] MEDS ORDERED: HYDROmorphone INJ 0.5 MG/0.5 ML SYR IV PRN (23:45)
--- NOTE | 2018-02-07 23:52 | DIAGNOSTIC IMAGING REPORT ---
CT OF THE ABDOMEN AND PELVIS WITHOUT CONTRAST CLINICAL HISTORY: Right lower quadrant pain. History of kidney stones COMPARISON STUDY: CT of the abdomen and pelvis November 30, 2016. TECHNIQUE: Axial images of the abdomen and pelvis were obtained without IV contrast. Images were reviewed in the axial, sagittal, and coronal planes. A dose lowering technique was utilized adhering to the principles of ALARA. FINDINGS: This study has significantly decreased sensitivity for detection of urinary calculi given contrast within the collecting systems, ureters and bladder from recent contrast-enhanced chest CT. However, there is no hydronephrosis or hydroureter. No filling defects are identified. There is no perinephric infiltration. Evaluation of the abdomen and pelvis is suboptimal on this unenhanced exam. There is no biliary ductal dilatation status post cholecystectomy. Unenhanced images of liver, spleen, adrenal glands and pancreas are normal. There is no evidence for a bowel obstruction. The appendix is normal. No pneumatosis, free air or portal venous gas is present. No suspicious osseous lesion is noted. IMPRESSION: 1. No hydronephrosis or hydroureter. Significantly diminished sensitivity for detection of urinary calculi given excreted contrast within the collecting systems, ureters and bladder from recent contrast-enhanced chest CT. 2. Normal appendix. No bowel obstruction. Electronically signed by: Andrei Carver M.D. 02/07/2018 11:51 PM Dictated Date/Time: 02/07/2018 11:44 PM
[2018-02-08] MEDS ORDERED: PROCHLORPERAZINE INJ 5 MG in SYRINGE 4 ML IV PRN (00:30)
[2018-02-08] MEDS ORDERED: LORAZEPAM 2 MG/ML 1 ML VIAL IV PRN (00:30)
[2018-02-08] MEDS ORDERED: GABAPENTIN 600 MG TAB PO SCH (00:30)
[2018-02-08] MEDS ORDERED: ACETAMINOPHEN 325 MG TAB PO PRN (00:30)
[2018-02-08 01:05] VITALS: BP 148/91; PULSE 53; TEMP 36.5; O2SAT 95; Ht 185.4 cm; Wt 119.9 kg
[2018-02-08] MEDS ORDERED: IV FLUIDS COMPLETED PRN (01:45)
[2018-02-08] MEDS ORDERED: HEPARIN 25,000 UNIT/500ML D5W 500 ML IV SCH (02:00)
[2018-02-08] MEDS ORDERED: WARFARIN SOD 10 MG TAB PO ONE (02:30)
[2018-02-08] MEDS ORDERED: MULTI-VITAMIN INFUSION INJ 10 ML, THIAMINE HCL INJ 100 MG, FoLIC ACID INJ 1 MG, POTASSI... IV ONE ×5 (02:30)
[2018-02-08] MEDS ORDERED: GABAPENTIN 1200MG LOADING DOSE PO SCH (02:30)
[2018-02-08] MEDS ORDERED: GI COCKTAIL PO PRN (04:00)
[2018-02-08 04:06] VITALS: BP 118/75; PULSE 51; TEMP 36.5; O2SAT 97
[2018-02-08] MEDS ORDERED: ALUMINUM/MAGNESIUM SUSP 18 ML, LIDOCAINE HCL 2% VISCOUS SOLN 6 ML, BARCODE IDENTIFIER 1 EA PO ONE ×2 (04:30)
[2018-02-08] MEDS ORDERED: LEVOTHYROXINE 200 MCG TAB PO SCH (06:00)
[2018-02-08 07:09] LABS: BASO % 0.3 %; BASO ABS # 0.02 K/uL (0-0.2); EOS % 1.9 %; EOS ABS # 0.15 K/uL (0-0.5); HEMATOCRIT 46.2 % (42-52); HEMOGLOBIN 15.9 g/dL (14.0-18.0); IG# 0.03 K/uL (0.00-0.02); MEAN CELL VOLUME 93.3 fL (80-100); MEAN CORPUSCULAR HEMOGLOBIN 32.1 pg (25-34); MEAN CORPUSCULAR HGB CONC 34.4 g/dl (32-36); MEAN PLATELET VOLUME 11.3 fL (7.4-10.4); MONO % 8.2 %; MONO ABS # 0.64 K/uL (0.11-0.59); NEUT % 48.2 %; NEUT ABS # 3.77 K/uL (1.4-6.5); PLATELET COUNT 160 K/uL (130-400); RED CELL DISTRIBUTION WIDTH CV 12.6 % (11.5-14.5); WHITE BLOOD COUNT 7.81 K/uL (4.8-10.8)
--- NOTE | 2018-02-08 07:20 | HISTORY & PHYSICAL EXAMINATION ---
DATE OF ADMISSION: 02/07/2018 CHIEF COMPLAINT: Chest pain. HISTORY OF PRESENT ILLNESS: History obtained from patient's and records. Medical history is significant for hypercoagulable state (recurrent PE/DVT on Coumadin, Factor V Leiden mutati as per records) on Coumadin, hypertension, hyperlipidemia , hypothyroidism, ongoing tobacco/alcohol abuse. Recent confinement in 10/2016 for bilateral PE/acute DVT. Patient was discharged on Coumadin. Patient went back to drinking after 3 weeks of being "clean". Today, he had sharp right-sided chest pain, different from heartburn, some shortness of breath. Radiation to R abdomen. No trauma, no exertion. no previous episodes. Claims to be compliant with home medications. Patient brought to the ER. No relief with nitroglycerin. Pain resolved with Dilaudid. MEDICAL HISTORY: As above. Stress echo in 2010 for atypical chest pain, no evidence of ischemia. SURGICAL HISTORY: Hernia repair, cholecystectomy, vasectomy. MEDICATIONS: Home medications include Coumadin, bupropion, levothyroxine, Latuda, Protonix ALLERGIES: No known drug allergies. FAMILY HISTORY: There is a family history of blood clots. PERSONAL/SOCIAL HISTORY: Reports 3/4 pack daily, alcohol abuse. 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 REVIEW OF SYSTEMS: As per HPI. All 10 systems reviewed, all other ROS negative. PHYSICAL EXAMINATION: VITAL SIGNS: Blood pressure noted to be 150/92, pulse rate 59, RR 18, 36.5, saturations 95% on room air. GENERAL: Noted to be obese. Alcoholic fetor noted. SKIN: Normal color, warm. HEENT: [place] palpebral conjunctivae, no ptosis. Dry oral mucosa. NECK: Short, supple. CHEST: Decreased breath sounds. No tenderness. HEART: Bradycardic. No murmur. ABDOMEN: Some distention, tender. EXTREMITIES: No edema, no tenderness. No gross deformities. NEUROLOGIC: Coherent no facial asymmetry, no gross focality. LABORATORY DATA: Hemoglobin was noted to be 16.9, white cell count 10, platelets 188. Sodium 140, potassium 3.7, chloride 82, CO2 of 21, BUN 11, creatinine 0.95, glucose was noted to be 95. LFTs, lipase normal, troponin noted to be 0.015. EKG as per my interpretation, rate 55, sinus bradycardia, 1AVB, no ischemia. CTA No PE. CT of abdomen and pelvis showed no hydronephrosis or hydroureter, normal appendix, significantly diminished sensitivity for detection of urinary calculus given residual contrast. ASSESSMENT: 1. Atypical chest pain 2. Hypertension. Slightly elevated. 3. Ongoing tobacco abuse. 4. hypercoagulable state. Recurrent pulmonary embolism/deep venous thrombosis , Factor V Leiden mutation INR therapeutic at 1.3 ? compliance. 5. Hypothyroidism. No recent TSH. 6. Mood/anxiety disorder, at baseline as per patient PLAN: Observation PCU. 2D echo in the morning. RE cp Cardiology consult in a.m. as per patient's 's request RE chest pain. GI cocktail trial if recurrence of chest pain. Check TSH DT precautions. Nicotine patch. DVT prophylaxis, IV Heparin-Coumadin bridge. Full code. Patient's requesting for updates from providers. Mrs. Mandi Royal thru contact number [phone]. ROSALINE
[2018-02-08 07:26] LABS: INR 1.2 (0.9-1.1)
[2018-02-08 07:29] LABS: PTT PATIENT 60.6 SECONDS (21.0-31.0)
[2018-02-08 07:34] VITALS: BP 132/87; PULSE 48; TEMP 36.6; O2SAT 98
[2018-02-08] MEDS ORDERED: GABAPENTIN 600MG Q6H DOSE PO SCH (08:00)
[2018-02-08] MEDS ORDERED: TRINTELLIX-ORDER AWAITING ACTION SCH (08:00)
[2018-02-08] MEDS ORDERED: PANTOprazole SOD 40 MG TAB PO SCH (09:00)
[2018-02-08] MEDS ORDERED: BuPROPion XL 150 MG TABCR PO SCH (09:00)
[2018-02-08] MEDS ORDERED: NICOTINE 14 MG/24 HR TDSY TD SCH (09:00)
--- NOTE | 2018-02-08 10:25 | Cardiology Consultation ---
Cardiology Consultation Date of Service Feb 08, 2018. Cardiology Consultation Indication: Consultation for chest pain History: This is a 52-year-old male patient with a history of hyperlipidemia, smoking, alcoholism and chronic chest pain. I last saw him in the clinic in 2013 at which time he had markedly elevated triglycerides and atypical chest pain. Patient states that he was drinking last night and developed chest discomfort which lasted for approximately 15 minutes. He describes it as a heaviness which took his breath away. While being transported to the emergency department his chest pain resolved. It then returned for short time in the emergency department but now the patient has been pain-free since admission. His initial EKG shows no acute changes. His cardiac markers have been negative. He has no complaints this morning. Allergies: No known medical allergies Reported Home Medications Medications Dose Route/Sig Max Daily Dose Days Date Category Dose Instructions Warfarin Sodium 5 Mg Tab 10 Mg PO 5XWK 02/07/18 Reported TAKE 10 MG EVERY WEDNESDAY,WEDNESDAY,WEDNESDAY,WEDNESDAY AND WEDNESDAY OR OTHERWISE DIRECTED TO TAKE BY ANTICOAGULATION CLINIC/MD Warfarin Sodium 5 Mg Tab 15 Mg PO 2XWK 02/07/18 Reported TAKE 15 MG EVERY WEDNESDAY AND WEDNESDAY OR OTHERWISE DIRECTED TO TAKE BY ANTICOAGULATION CLINIC/MD Bupropion Hcl Xl (Bupropion Hcl) 150 Mg Tab 150 Mg PO DAILY 02/07/18 Reported Protonix (Pantoprazole) 40 Mg Tab 40 Mg PO QAM 02/07/18 Reported Trintellix (Vortioxetine HBr) 20 Mg Tab 20 Mg PO QAM 03/03/17 Reported Latuda (Lurasidone Hcl) 80 Mg Tab 80 Mg PO HS 11/30/16 Reported Levothyroxine Sodium 200 Mcg Tab 200 Mcg PO QAM 11/30/16 Reported TAKE THIS MEDICATION 30 MINUTES BEFORE BREAKFAST OR ANY OTHER MEDICATIONS Past medical history: As outlined above the patient has a history of alcoholism and continues to drink. He has hyper triglyceridemia most likely on the basis of alcohol consumption. He has a Leiden factor V deficiency with a previous history of a pulmonary emboli 2 years ago and is on chronic anticoagulation. He has had no previous history of myocardial infarction or congestive heart failure. He is treated for hypothyroidism and does have a history of GERD. No current history of diabetes. Social history: Patient is an avid smoker and continues to drink alcohol. Family medical history: Noncontributory General: The patient denies weight change, night sweats, fever, chills. Head: The patient denies headache and prior head trauma. Cardiovascular: The patient denies chest pain or chest discomfort, dyspnea on exertion, palpitations, PND, orthopnea, edema, spontaneous shortness of breath, syncope and near syncope. Pulmonary: The patient denies cough, wheeze, pleurisy, hemoptysis, sputum, and excessive snoring. Gastrointestinal: The patient denies nausea, vomiting, diarrhea, constipation, bloating, hematemesis, hematochezia, and abdominal pain. Skin: The patient denies diaphoresis and rash. Musculoskeletal: The patient denies joint pain, joint swelling, myalgia, back pain, neck pain and prior injuries. Neurological: The patient denies prior stroke and seizures Vital Signs Past 12 Hours Date Time Temp Pulse Resp B/P (MAP) Pulse Ox O2 Delivery O2 Flow Rate FiO2 02/08/18 08:00 Room Air 02/08/18 07:34 36.6 48 20 132/87 (102) 98 Room Air 02/08/18 04:06 36.5 51 16 118/75 (89) 97 Room Air 02/08/18 01:05 36.5 53 16 148/91 95 Room Air 02/08/18 00:08 56 18 125/75 96 Room Air 02/07/18 23:18 57 02/07/18 23:11 59 18 150/92 98 Room Air General Appearance: Alert and Oriented x3. NAD. Head: Normocephalic Atraumatic. Eyes: PERRLA, EOMI, conjunctiva and sclera clear Neck: Supple. No carotid bruits noted. No JVD. No HJD. Respiratory: Breath sounds clear to auscultation bilaterally. No w/r/r. Cardiovascular: Reg rate and rhythm. S1 and S2 noted. No murmurs, rubs, gallops. PMI non displace. Abdomen: Normal bowel sounds, soft nontender. no abdominal bruits. Extremities: No edema, no clubbing or cyanosis. distal pulses 2/4 bilaterally. Neuro: No focal deficits. Psychiatric: Normal affect. Last 24 Hours Test 02/07/18 18:15 02/08/18 06:55 White Blood Count 9.76 K/uL 7.81 K/uL Red Blood Count 5.13 M/uL 4.95 M/uL Hemoglobin 16.9 g/dL 15.9 g/dL Hematocrit 47.6 % 46.2 % Mean Corpuscular Volume 92.8 fL 93.3 fL Mean Corpuscular Hemoglobin 32.9 pg 32.1 pg Mean Corpuscular Hemoglobin Concent 35.5 g/dl 34.4 g/dl Platelet Count 188 K/uL 160 K/uL Mean Platelet Volume 11.5 fL 11.3 fL Neutrophils (%) (Auto) 70.6 % 48.2 % Lymphocytes (%) (Auto) 22.2 % 41.0 % Monocytes (%) (Auto) 5.9 % 8.2 % Eosinophils (%) (Auto) 0.9 % 1.9 % Basophils (%) (Auto) 0.2 % 0.3 % Neutrophils # (Auto) 6.88 K/uL 3.77 K/uL Lymphocytes # (Auto) 2.17 K/uL 3.20 K/uL Monocytes # (Auto) 0.58 K/uL 0.64 K/uL Eosinophils # (Auto) 0.09 K/uL 0.15 K/uL Basophils # (Auto) 0.02 K/uL 0.02 K/uL RDW Standard Deviation 41.8 fL 43.0 fL RDW Coefficient of Variation 12.4 % 12.6 % Immature Granulocyte % (Auto) 0.2 % 0.4 % Immature Granulocyte # (Auto) 0.02 K/uL 0.03 K/uL Prothrombin Time 14.0 SECONDS 13.0 SECONDS Prothromb Time International Ratio 1.3 1.2 Activated Partial Thromboplast Time 30.3 SECONDS 60.6 SECONDS Partial Thromboplastin Ratio 1.2 2.3 Sodium Level 140 mmol/L Potassium Level 3.7 mmol/L Chloride Level 108 mmol/L Carbon Dioxide Level 21 mmol/L Anion Gap 11.0 mmol/L Blood Urea Nitrogen 11 mg/dl Creatinine 0.95 mg/dl Est Creatinine Clear Calc Drug Dose 120.9 ml/min Estimated GFR () 104.8 Estimated GFR (Non- 90.4 BUN/Creatinine Ratio 11.4 Random Glucose 95 mg/dl Calcium Level 8.5 mg/dl Magnesium Level 2.3 mg/dl Total Bilirubin 0.5 mg/dl Direct Bilirubin 0.1 mg/dl Aspartate Amino Transf (AST/SGOT) 18 U/L Alanine Aminotransferase (ALT/SGPT) 33 U/L Alkaline Phosphatase 85 U/L Troponin I < 0.015 ng/ml < 0.015 ng/ml Total Protein 7.2 gm/dl Albumin 3.7 gm/dl Lipase 119 U/L Thyroid Stimulating Hormone (TSH) 1.880 uIu/ml Impression: 1. Atypical chest pain 2. Cigarette smoking 3. Alcoholism 4. Dyslipidemia 5. Treated hypothyroidism Recommendations: The patient's chest discomfort is atypical and he has negative cardiac markers and an EKG with no significant changes however, he is a cigarette smoker with hyper lipidemia and an unreliable historian. I would recommend that we proceed with an exercise stress echocardiogram to screen him for significant coronary artery disease. If that study is negative then he can be discharged to outpatient follow-up.
--- NOTE | 2018-02-08 10:48 | ECHOCARDIOGRAM REPORT ---
*NOTICE TO RECEIVING REPUBLICAN AGENCY This information is strictly Confidential and protected under [place] law. [place] law prohibits you from making any further disclosure of this information unless further disclosure is expressly permitted by the written consent of the person to whom it pertains or is authorized by law. A general authorization for the release of medical or other information is not sufficient for this purpose. Hospital accepts no responsibility if the information is made available to any other person, INCLUDING THE PATIENT. Interpretation Summary * Name: RAJESH MALDONADO Study Date: 02/08/2018 06:41 AM BP: 118/75 mmHg * Patient Location: C.2T\S\S240\S\2 HR: 51 * : 1965 (M/d/yyyy) Gender: Male Height: 72 in * Age: 52 yrs Ethnicity: CA Weight: 265 lb * Ordering Physician: Michael Valdez * Referring Physician: Self, Referred * Performed By: Alicia Lake RDCS * * Reason For Study: Chest Pain * BSA: 2.4 m2 * -- Conclusions -- * Normal LV chamber size with mild concentric LVH. * Normal LV systolic function, EF 60-65%. * No segmental left ventricular wall motion abnormalities are noted. * Grade I diastolic dsyfunction. * Aortic valve sclerosis mild, without significant aortic valvular stenosis. Procedure Details * A complete two-dimensional transthoracic echocardiogram was performed (2D, M-mode, Doppler and color flow Doppler). Left Ventricle * The left ventricle is normal in size. * There is mild concentric left ventricular hypertrophy. * Ejection Fraction = 60-65%. * Left ventricular systolic function is normal. * No segmental left ventricular wall motion abnormalities are noted. * The left ventricular wall motion is normal. Right Ventricle * The right ventricular cavity size is normal (basal dimension <4.2 cm in right ventricular apical 4-chamber view). * The right ventricular systolic function is normal as assessed by tricuspid annular plane systolic excursion (TAPSE) (normal >1.5 cm). Atria * The left atrial size is normal. * Right atrial size is normal. * No ASD detected; PFO is not assessed. Mitral Valve * The mitral valve is normal in structure and function. Tricuspid Valve * The tricuspid valve is normal in structure and function. Aortic Valve * The aortic valve is trileaflet. * Aortic valve sclerosis mild, without significant aortic valvular stenosis. * There is no significant aortic regurgitation. Pulmonic Valve * The pulmonary valve is not well seen, but the Doppler examination is normal without significant regurgitation or stenosis. Great Vessels * The aortic root is normal size. Pericardium/Pleural * There is no pericardial effusion. Left Ventricular Diastolic Function * Diastolic dysfunction, Grade II (pseudonormalization pattern). MMode 2D Measurements and Calculations IVSd 1.2 cm IVSs 1.5 cm LVIDd 5.0 cm LVIDs 3.1 cm LVPWd 1.2 cm LVPWs 1.2 cm IVS/LVPW 1.1 FS 37.6 % EDV(Teich) 116.6 ml ESV(Teich) 38.0 ml EF(Teich) 67.4 % EDV(cubed) 122.8 ml ESV(cubed) 29.9 ml EF(cubed) 75.7 % % IVS thick 23.0 % % LVPW thick 6.2 % LV mass(C)d 228.7 grams LV mass(C)dI 95.2 grams/m\S\2 LV mass(C)s 141.0 grams LV mass(C)sI 58.7 grams/m\S\2 SV(Teich) 78.6 ml SI(Teich) 32.7 ml/m\S\2 SV(cubed) 92.9 ml SI(cubed) 38.7 ml/m\S\2 Ao root diam 3.7 cm Ao root area 10.7 cm\S\2 ACS 2.4 cm LA dimension 3.8 cm LA/Ao 1.0 LVAd ap4 37.0 cm\S\2 LVLd ap4 9.1 cm EDV(MOD-sp4) 123.7 ml EDV(sp4-el) 128.6 ml LVAs ap4 22.8 cm\S\2 LVLs ap4 7.5 cm ESV(MOD-sp4) 58.9 ml ESV(sp4-el) 58.3 ml EF(MOD-sp4) 52.4 % EF(sp4-el) 54.7 % LVAd ap2 34.2 cm\S\2 LVLd ap2 8.4 cm EDV(MOD-sp2) 114.4 ml EDV(sp2-el) 118.0 ml LVAs ap2 17.7 cm\S\2 LVLs ap2 7.1 cm ESV(MOD-sp2) 37.6 ml ESV(sp2-el) 37.5 ml EF(MOD-sp2) 67.1 % EF(sp2-el) 68.2 % LVLd %diff -7.59 % EDV(MOD-bp) 124.8 ml LVLs %diff -6.68 % ESV(MOD-bp) 48.8 ml EF(MOD-bp) 60.9 % SV(MOD-sp4) 64.8 ml SI(MOD-sp4) 27.0 ml/m\S\2 SV(MOD-sp2) 76.8 ml SI(MOD-sp2) 32.0 ml/m\S\2 SV(MOD-bp) 76.0 ml SI(MOD-bp) 31.7 ml/m\S\2 SV(sp4-el) 70.3 ml SI(sp4-el) 29.3 ml/m\S\2 SV(sp2-el) 80.5 ml SI(sp2-el) 33.5 ml/m\S\2 Doppler Measurements and Calculations MV E max jeanine 76.6 cm/sec MV A max jeanine 50.0 cm/sec MV E/A 1.5 MV dec time 0.25 sec Ao V2 max 110.8 cm/sec Ao max PG 4.9 mmHg Ao max PG (full) 3.1 mmHg LV V1 max PG 1.8 mmHg LV V1 max 66.5 cm/sec PA V2 max 103.8 cm/sec PA max PG 4.3 mmHg TR max jeanine 192.7 cm/sec
[2018-02-08] MEDS ORDERED: DOBUTamine HCL 12.5 MG/ML 20 ML VIAL ONE (10:59)
[2018-02-08] MEDS ORDERED: ATROPINE SULFATE 0.1 MG/ML 10 ML SYR ONE ×2 (10:59)
[2018-02-08] MEDS ORDERED: METOPROLOL TARTRATE 1 MG/ML VIAL ONE ×2 (10:59)
[2018-02-08 11:39] VITALS: BP 120/81; PULSE 59; TEMP 36.5; O2SAT 96
--- NOTE | 2018-02-08 13:00 | Hospitalist Progress Note ---
Hospitalist Progress Note Date of Service Feb 08, 2018. (Yoselyn Alcazar .KIN) Subjective Patient seen and examined. No further chest pain. Denies shortness of breath, lightheadedness, dizziness. No signs of alcohol withdrawal. (Yoselyn Alcazar .KIN) Objective Vital Signs Date Time Temp Pulse Resp B/P (MAP) Pulse Ox O2 Delivery O2 Flow Rate FiO2 02/08/18 11:39 36.5 59 20 120/81 (94) 96 Room Air 02/08/18 08:00 Room Air 02/08/18 07:34 36.6 48 20 132/87 (102) 98 Room Air 02/08/18 04:06 36.5 51 16 118/75 (89) 97 Room Air 02/08/18 01:05 36.5 53 16 148/91 95 Room Air 02/08/18 00:08 56 18 125/75 96 Room Air 02/07/18 23:18 57 02/07/18 23:11 59 18 150/92 98 Room Air 02/07/18 21:07 66 99 02/07/18 20:48 56 16 157/98 100 Room Air 02/07/18 20:37 57 100 02/07/18 20:32 56 157/98 97 Room Air 02/07/18 20:28 57 97 02/07/18 20:07 56 128/86 97 02/07/18 19:53 51 98 02/07/18 19:51 129/83 98 Room Air 02/07/18 19:31 111/67 02/07/18 19:23 270 02/07/18 19:18 53 02/07/18 19:13 53 16 112/75 98 Room Air 02/07/18 18:21 54 17 02/07/18 18:16 56 18 02/07/18 18:11 52 16 02/07/18 18:10 52 02/07/18 18:06 53 17 121/71 02/07/18 18:01 56 13 02/07/18 17:56 97 Room Air 02/07/18 17:56 97 Room Air 02/07/18 17:31 36.7 57 18 131/87 97 Room Air (Yoselyn Alcazar CRNP) Physical Exam General Appearance: no apparent distress Respiratory/Chest: lungs clear, normal breath sounds, no respiratory distress Cardiovascular: regular rate, rhythm, no edema Abdomen: normal bowel sounds, non tender, soft Neurologic/Psychiatric: alert, oriented x 3 (Yoselyn Alcazar CRNP) Laboratory Results Item Value Date Time Troponin I < 0.015 ng/ml 02/08/18 06 Thyroid Stimulating Hormone (TSH) 1.880 uIu/ml 02/08/18 06 White Blood Count 7.81 K/uL 02/08/18 0655 Hemoglobin 15.9 g/dL 02/08/18 06 Hematocrit 46.2 % 02/08/18 06 Platelet Count 160 K/uL 02/08/18 0655 Prothromb Time International Ratio 1.2 H 02/08/18 06 (Yoselyn Alcazar CRNP) Assessment and Plan CHEST PAIN -Admitted yesterday for atypical chest pain -Negative serial troponins and EKG without acute ST changes -Underwent stress echocardiogram today which was negative per verbal report from Dr. Christian HISTORY OF PULMONARY EMBOLISM, HYPERCOAGULABLE STATE -INR 1.3 yesterday -> 1.2 today -Received IV heparin bridge -CT chest negative for new pulmonary embolism -Discussed with the coagulation clinic, will instruct patient to take Coumadin 15 mg tonight and to keep his follow-up appointment tomorrow at the coag clinic for further recommendations HYPOTHYROIDISM -TSH 1.880 -Continue levothyroxine DEPRESSION -Continue home medications ALCOHOL ABUSE -Patient with history of heavy alcohol use in rehab in the past; has not drank for the past 3 weeks however had 6-7 beers yesterday -Received gabapentin protocol with banana bag -No signs of withdrawal -Patient counseled regarding alcohol cessation -will discharge on multivitamin, thiamine, folic acid DVT PROPHYLAXIS -On IV heparin DISPOSITION -Discharge today (Yoselyn Alcazar CRNP) Attending Addendum Pt was seen and examined. Agreed with Yoselyn SANDERSON exam, assessment and plan. Pt said that he feels fine. He said that he does not have any chest pain currently. He said that the chest pain occurred after drinking alcohol. Pt said that he has not been drinking for about 3 to 4 weeks until yesterday. He said that he never went to [facility]. Troponinx 2 was negative and EKG showed no ischemic changes. He had a stress echo done today that was negative for ischemia. Counseling on alcohol cessation. Ok from cardiac standpoint to discharge home. Follow up with primary care provider Dr. Hernandes on 02/15 @ 10:45 AM. MD Gunnar (Estefani Maher M.D.)
[2018-02-08] MEDS ORDERED: FLV1 PO (13:05)
[2018-02-08] MEDS ORDERED: MULT-890 PO (13:05)
[2018-02-08] MEDS ORDERED: THIA100T10 PO (13:05)
[2018-02-08] MEDS ORDERED: CMD5 PO (13:05)
--- NOTE | 2018-02-08 13:14 | Discharge Instructions ---
Discharge Instructions Date of Service Feb 08, 2018. Admission Reason for Admission: Chest Pain Discharge Discharge Diagnosis / Problem: Non Cardiac Chest Pain Discharge Goals Goal(s): Decrease discomfort, Improve function Activity Recommendations Activity Limitations: resume your previous activity . Instructions / Follow-Up Instructions / Follow-Up You were admitted to the hospital for chest pain. You underwent a stress that was negative; therefore, the chest pain is likely non cardiac in nature. Your discomfort could be from acid reflux. Continue to take Protonix and abstain from alcohol, smoking, coffee, and high acid foods. Your Coumadin level was also found to be low; take Coumadin 15mg tonight and keep your follow up appointment with the coag clinic tomorrow for further recommendations. Due to your recent alcohol use, you were started on a multi vitamin, folic acid , and thiamine - take each daily and abstain from alcohol. Continue to take all of your other medications as prescribed. FOLLOW UP APPOINTMENTS [facility] - Friday 02/09 at 10:45am Dr. Hernandes ([facility]) - Thursday 02/15 at 10:45am Current Hospital Diet Patient's current hospital diet: AHA Diet (Heart Healthy) Discharge Diet Recommended Diet: AHA Diet (Heart Healthy) Pending Studies Studies pending at discharge: no Medical Emergencies . Who to Call and When: Medical Emergencies: If at any time you feel your situation is an emergency, please call 911 immediately. . Non-Emergent Contact Non-Emergency issues call your: Primary Care Provider Call Non-Emergent contact if: you have a fever, your pain is not controlled, your pain is worsening, your pain is unusual for you, your pain is concerning you, you have any medication questions . . "Provider Documentation" section prepared by Yoselyn Alcazar. .
[2018-02-08 13:34] VITALS: BP 120/81; PULSE 59; TEMP 36.5; O2SAT 96
--- NOTE | 2018-02-08 13:48 | Discharge Summary ---
Discharge Summary Date of Service Feb 08, 2018. Discharge Summary Admission Date: Feb 07, 2018 at 23:58 Discharge Date: Feb 08, 2018 Discharge Disposition: Home Principal Diagnosis: Chest Pain, Non Cardiac Secondary Diagnoses/Problems: GERD HISTORY OF PULMONARY EMBOLISM, HYPERCOAGULABLE STATE HYPOTHYROIDISM DEPRESSION ALCOHOL ABUSE, TOBACCO ABUSE Procedures: Resting Echo: Normal LV chamber size with mild concentric LVH. Normal LV systolic function, EF 60-65%. No segmental left ventricular wall motion abnormalities are noted. Grade I diastolic dsyfunction. Aortic valve sclerosis mild, without significant aortic valvular stenosis. Dobutamine Stress Test - negative per verbal report from Dr. Christian CXR IMPRESSION: 1. No acute cardiopulmonary disease. CTA CHEST IMPRESSION: 1. No pulmonary emboli identified. 2. No acute intrathoracic findings. ABD/PELVIS CT IMPRESSION: 1. No hydronephrosis or hydroureter. Significantly diminished sensitivity for detection of urinary calculi given excreted contrast within the collecting systems, ureters and bladder from recent contrast-enhanced chest CT. 2. Normal appendix. No bowel obstruction. Consultations: Dr. Christian, cardiology Medication Reconciliation New Medications: Warfarin Sod (Coumadin) 5 Mg Tab 15 MG PO once for 1 Day, #1 take Warfarin 15mg tonight keep your follow up appointment with coag clinic for tomorrow for further instructions Folic Acid (Folic Acid) 1 Mg Tab 1 MG PO QAM for 14 Days, #14 TAB Multiple Vitamin (Daily-Stefanie) 1 Tab Tab 1 TAB PO QAM for 14 Days, #14 TAB Thiamine Hcl (Vitamin B-1) 100 Mg Tab 100 MG PO QAM for 14 Days, #14 TAB Continued Medications: Bupropion Hcl (Bupropion Hcl Xl) 150 Mg Tab 150 MG PO DAILY Levothyroxine Sodium (Levothyroxine Sodium) 200 Mcg Tab 200 MCG PO QAM TAKE THIS MEDICATION 30 MINUTES BEFORE BREAKFAST OR ANY OTHER MEDICATIONS Lurasidone Hcl (Latuda) 80 Mg Tab 80 MG PO HS Pantoprazole (Protonix) 40 Mg Tab 40 MG PO QAM Vortioxetine HBr (Trintellix) 20 Mg Tab 20 MG PO QAM Discontinued Medications: Warfarin Sodium (Warfarin Sodium) 5 Mg Tab 15 MG PO 2XWK TAKE 15 MG EVERY WEDNESDAY AND WEDNESDAY OR OTHERWISE DIRECTED TO TAKE BY ANTICOAGULATION CLINIC/MD Warfarin Sodium (Warfarin Sodium) 5 Mg Tab 10 MG PO 5XWK, TAB TAKE 10 MG EVERY WEDNESDAY,WEDNESDAY,WEDNESDAY,WEDNESDAY AND WEDNESDAY OR OTHERWISE DIRECTED TO TAKE BY ANTICOAGULATION CLINIC/MD Admission Information HPI (per Admitting provider): HISTORY OF PRESENT ILLNESS: History obtained from patient's and records. Medical history is significant for PE, on Coumadin, hypertension, ongoing hypothyroidism, factor V Leiden mutation, recurrent PE, hypercoagulable state, ongoing tobacco/alcohol abuse, hyperlipidemia. Recent confinement in 10/2016 for bilateral PE/acute DVT. Patient was discharged on Coumadin. Patient went back to drinking after 3 weeks of being clean. Today, he had right-sided chest pain, different from heartburn, some shortness of breath, right abdominal pain. Pain resolved with Dilaudid. No trauma, no exertion. no previous episodes. No relief with nitroglycerin. Brought to the ER. Physical Exam (per Admitting): PHYSICAL EXAMINATION: VITAL SIGNS: Blood pressure noted to be 150/92, pulse rate 59, RR 18, 36.5, saturations 95% on room air. GENERAL: Noted to be obese. Alcoholic feature noted. SKIN: Normal color, warm. HEENT: [place] palpebral conjunctivae, no ptosis. Dry oral mucosa. NECK: Short, supple. CHEST: Decreased breath sounds. No tenderness. HEART: Bradycardic. No murmur. ABDOMEN: Some distention, tender. EXTREMITIES: No edema, no tenderness. No gross deformities. NEUROLOGIC: Cranial nerves grossly intact. No gross focality. Hospital Course CHEST PAIN, NONCARDIAC -Admitted on 02/07 for evaluation of chest pain that began after ingestion of alcohol -Serial troponins negative, EKG without acute ST changes -Resting echo negative for wall motion abnormalities -Underwent dobutamine stress test on 02/08 which was negative per verbal report from Dr. Christian -? Due to GERD with history of ingestion of alcohol, heavy coffee use, and smoking -Patient instructed to abstain from alcohol and smoking and to cut back on his coffee use -Continue Protonix 40 mg daily; if symptoms do not improve with lifestyle modifications, consider GI evaluation HISTORY OF PULMONARY EMBOLISM, HYPERCOAGULABLE STATE -INR 1.3 yesterday -> 1.2 today -Received IV heparin bridge -CT chest negative for new pulmonary embolism -Discussed with the coagulation clinic, will instruct patient to take Coumadin 15 mg tonight and to keep his follow-up appointment tomorrow at the coag clinic for further recommendations HYPOTHYROIDISM -TSH 1.880 -Continue levothyroxine DEPRESSION -Continue home medications ALCOHOL ABUSE -Patient with history of heavy alcohol use in rehab in the past; has not drank for the past 3 weeks however had 6-7 beers prior to admission -Received gabapentin protocol with banana bag -No signs of withdrawal -Patient counseled regarding alcohol cessation -will discharge on multivitamin, thiamine, folic acid Total time spent on discharge = 30 mins This includes examination of the patient, discharge planning, medication reconciliation, and communication with other providers. Discharge Instructions Discharge Instructions Date of Service Feb 08, 2018. Admission Reason for Admission: Chest Pain Discharge Discharge Diagnosis / Problem: Non Cardiac Chest Pain Discharge Goals Goal(s): Decrease discomfort, Improve function Activity Recommendations Activity Limitations: resume your previous activity . Instructions / Follow-Up Instructions / Follow-Up You were admitted to the hospital for chest pain. You underwent a stress that was negative; therefore, the chest pain is likely non cardiac in nature. Your discomfort could be from acid reflux. Continue to take Protonix and abstain from alcohol, smoking, coffee, and high acid foods. Your Coumadin level was also found to be low; take Coumadin 15mg tonight and keep your follow up appointment with the coag clinic tomorrow for further recommendations. Due to your recent alcohol use, you were started on a multi vitamin, folic acid , and thiamine - take each daily and abstain from alcohol. Continue to take all of your other medications as prescribed. FOLLOW UP APPOINTMENTS [facility] - Friday 02/09 at 10:45am Dr. Hernandes ([facility]) - Thursday 02/15 at 10:45am Current Hospital Diet Patient's current hospital diet: AHA Diet (Heart Healthy) Discharge Diet Recommended Diet: AHA Diet (Heart Healthy) Pending Studies Studies pending at discharge: no Medical Emergencies . Who to Call and When: Medical Emergencies: If at any time you feel your situation is an emergency, please call 911 immediately. . Non-Emergent Contact Non-Emergency issues call your: Primary Care Provider Call Non-Emergent contact if: you have a fever, your pain is not controlled, your pain is worsening, your pain is unusual for you, your pain is concerning you, you have any medication questions Additional Copies To Mikaela Mac D.O.
[2018-02-08] MEDS ORDERED: WARFARIN SOD 10 MG TAB PO SCH (16:00)
[2018-02-08] MEDS ORDERED: LURASIDONE HCL 40 MG TAB PO SCH (16:45)
[2018-02-08] MEDS ORDERED: GABAPENTIN 600MG Q8H DOSE PO SCH (22:00)
--- NOTE | 2018-02-09 08:32 | DOBUTAMINE ECHO ---
*NOTICE TO RECEIVING DEMOCRAT AGENCY This information is strictly Confidential and protected under [place] law. [place] law prohibits you from making any further disclosure of this information unless further disclosure is expressly permitted by the written consent of the person to whom it pertains or is authorized by law. A general authorization for the release of medical or other information is not sufficient for this purpose. Hospital accepts no responsibility if the information is made available to any other person, INCLUDING THE PATIENT. Interpretation Summary * Name: RAJESH MALDONADO Study Date: 02/08/2018 10:18 AM BP: 123/81 mmHg * Patient Location: C.2T\S\S240\S\2 HR: 47 * : 1965 (M/d/yyyy) Gender: Male Height: 72 in * Age: 52 yrs Ethnicity: [place] Weight: 264 lb * Ordering Physician: Brandon Christian DO * Performed By: Savita Weldon RDCS * * Reason For Study: Chest Pain * BSA: 2.4 m2 * STRESS STUDY: Normal pharmacologic stress echocardiogram. No echocardiographic or ECG evidence of myocardial ischemia having achieved heart rate adequate for diagnostic purposes. * -- Conclusions -- * STRESS STUDY: Normal pharmacologic stress echocardiogram. No echocardiographic or ECG evidence of myocardial ischemia having achieved heart rate adequate for diagnostic purposes. Procedure Details * DOBUTAMINE ECHO, CPT#27631 * A contrast injection of Definity was performed to improve assessment of LV function. * Contrast was injected into an intravenous site in the right arm. * One vial of Definity ultrasound contrast was diluted in normal saline to a total volume of 10 ml. A total of '6' ml of solution was administered during imaging. * Lot # [id number] of Definity utilized for procedure. * Expiration date 01/06. * The attending nurse who injected the contrast agent was HANNA RAMIREZ RN. Stress Parameters * Sinus bradycardia otherwise normal ECG * Stress ECG: No ST changes. No arrhythmias. * Rest heart rate was '47' BPM. * Rest blood pressure was '123/81' * Maximum heart rate achieved was 148 bpm. * Maximum heart rate was 89 % of maximum age-predicted heart rate. * Maximum blood pressure was '194/95' * Maximum Dobutamine infusion rate was '50' mcg/kg/min. * A total of 1 mg of intravenous Atropine was used to supplement Dobutamine for heart rate response. * Dobutamine infusion was terminated due to achieving target heart rate * A total of 5 mg of IV Metoprolol was administered to reverse Dobutamine-induced tachycardia. * The patient did not exhibit any symptoms during drug infusion. * Target heart rate achieved.
[2018-02-09] MEDS ORDERED: MULTIVITAMIN TAB PO SCH (09:00)
[2018-02-09] MEDS ORDERED: THIAMINE HCL 100 MG TAB PO SCH (09:00)
[2018-02-09] MEDS ORDERED: GABAPENTIN 600MG Q12H DOSE PO SCH (23:00)
[2018-02-11] MEDS ORDERED: GABAPENTIN 600MG X1 DOSE PO SCH (11:00)
== END 2018-02-08 14:17 | disposition home or self-care (01) ==
LOC: C.EDB 17:28 → C.2T 23:58 → ENRESERV 02-08 00:05
PROVIDERS: ADMIT Internal Medicine; ATTEND Internal Medicine
DX: R07.89 Other chest pain (principal); K21.9 Gastro-esophageal reflux disease without esophagitis; E03.9 Hypothyroidism, unspecified; F10.10 Alcohol abuse, uncomplicated; F32.9 Major depressive disorder, single episode, unspecified; M17.11 Unilateral primary osteoarthritis, right knee; F17.200 Nicotine dependence, unspecified, uncomplicated; Z79.01 Long term (current) use of anticoagulants; Z79.899 Other long term (current) drug therapy; Z86.711 Personal history of pulmonary embolism; I10 Essential (primary) hypertension; E78.5 Hyperlipidemia, unspecified; D68.2 Hereditary deficiency of other clotting factors

== ENCOUNTER 2019-12-28 15:00 | Observation (INO) ==
[2019-12-28] MEDS ORDERED: ASPIRIN 81 MG CHEW PO STA (15:57)
[2019-12-28] MEDS ORDERED: FOLIC ACID 1 MG TAB PO STA (16:03)
--- NOTE | 2019-12-28 16:11 | XRay Report ---
XR chest 1V portable HISTORY: 54 years-old Male Chest Pain acute atypical chest pain COMPARISON: Chest radiograph and CTA chest 02/07/2018 TECHNIQUE: Portable AP view of the chest FINDINGS: Cardiomediastinal and hilar silhouettes are within normal limits. No pneumothorax, pleural effusion, airspace consolidation or overt pulmonary edema. Bones of the chest appear grossly intact. IMPRESSION: No acute process. ACT 112: Negative or not required by law. The above report was generated using voice recognition software. It may contain grammatical, syntax o r spelling errors. Electronically signed by: Jairo Hahn M.D. 12/28/2019 4:09 PM
[2019-12-28] MEDS ORDERED: THIAMINE HCL 100 MG TAB PO SCH (16:15)
[2019-12-28] MEDS ORDERED: NICOTINE 21 MG/24 HR TDSY TD STA (16:31)
--- NOTE | 2019-12-28 16:38 | Emergency Department Note ---
Impression & Plan Atypical chest pain, Swelling of both lower extremities, HILLS (dyspnea on exertion) ED Provider Note Provider: Saw Vail MD DATE OF SERVICE: 12/28/2019 CHIEF COMPLAINT: Chest pain HISTORY OF PRESENT ILLNESS: Patient is a 54-year-old gentleman with a history of PE on Coumadin as well as a history of alcohol abuse and grade 1 diastolic dysfunction as well as hypertension presenting today referred from the outpatient clinic for chest pain. Patient evidently was being evaluated today and was planning to go to alcohol rehab today when seen in the clinic. Patient states over the past month or so he has had about a 25 pound weight gain and increasing shortness of breath and abdominal bloating over that time. Patient denies a history of similar. Having some mild to out of 10 left-sided chest pain described as sharp in nature with some radiation of the jaw and arm. Feels fatigued. Denies any trauma. Denies fever. Denies tick bites or rashes. Question of EKG changes in the clinic referred here. Patient state they were sent here for heart catheterization. Patient denies a history of delirium tremens hallucination or seizure. Last drink of alcohol was yesterday at 7 PM. REVIEW OF SYSTEMS: A total of 10 review of systems was obtained and negative except as stated above in the HPI. PAST MEDICAL HISTORY: As noted above MEDICATIONS: Reviewed home medication list but noncompliant with atorvastatin SOCIAL HISTORY: 1/2 12 pack of alcohol daily, is a smoker, PHYSICAL EXAM: GENERAL: alert and oriented in no acute distress on stretcher Head: normocephalic and atraumatic EYES: No injection, discharge or icterus. NECK: Trachea midline. Supple. ENT: Mucous membranes pink and moist. LUNGS: Airway patent. No retractions. Breath sounds clear HEART: Regular rate and rhythm. No chest wall tenderness ABDOMEN: Patient full but non-tense abdomen without significant tenderness SKIN: Acyanotic, warm, dry, without rashes EXTREMITIES: Without significant deformity or tenderness with 1-2+ bilateral lower extremity edema to the bilateral knees NEUROLOGICAL: No focal deficits. No aphasia. No facial droop or slurred speech. Normal strength and tone in the extremities. Sensation to gross touch normal. Ambulatory. EKG: Sinus bradycardia with a first-degree AV block rate 51 bpm. No PVC. No acute ST segment elevation is notable. QTC 400. Compared to previous available from the [facility] showing a date of December 28, 2019 at 1318 p.m. question o f some subtle inferior ST elevation with aVL T wave inversion on previous. Second EKG at 1811 hrs.: 51 beats minute sinus bradycardia first-degree AV block. No significant ST segment elevation or depressions notable. In comparison previous from 1613, the first EKG in the emergency department today, appears similar. Third EKG at 1839 hrs.: 51 beats minute sinus bradycardia first-degree AV block. No PVC. No acute ST segment elevation or depression notable. Appears similar to the previous EKGs from today. CONTINUOUS CARDIAC MONITORING: was ordered and showed a heart rate of 54 bpm in first-degree AV block with sinus bradycardia Patient's hypertension was referred to the hospitalist HOSPITAL COURSE: 1532 patient seen by the resident physician. 162 Patient was first seen and H&P performed. 173 Patient reassessed and updated. Patient was in agreement with plan for further observation here in the hospital 175 discussed with a [facility] hospitalist team. 181 alerted by nursing the patient is experiencing more bilateral chest pain. Repeat EKG was obtained. Given some morphine and nitroglycerin. 1836 reassessed the patient states his symptoms improved but now are starting to return somewhat. Describes a pleuritic sharp pain across the anterior chest with some pressure. Given an additional dose of nitroglycerin. 3rd EKG ordered. 1847 updated Alessandra Awad regarding patient's recurrent pain and symptoms. Patient's laboratory studies and imaging reviewed. Differential includes Cardiac ischemia, aortic dissection, pulmonary embolism, pneumothorax, pneumonia, pericarditis, myocarditis, esophageal rupture, GERD, cholecystitis, pancreatitis, musculoskeletal, as well as other pathologies. IMPRESSION/MEDICAL DECISION MAKING: Patient presents with one-month weight gain with some dyspnea on exertion and some mild left-sided chest pain. EKG here is reassuring. There is a question on the earlier outpatient EKG of some possible inferior changes. Not appreciable here. Given some aspirin. Given folate and thiamine repletion here. Question whether he may be experiencing some evidence of heart failure versus liver dysfunction given his history of alcohol abuse. I doubt PE with his therapeutic anticoagulation. I doubt dissection. No evidence of pneumonia or pneumothorax. Per his request given a nicotine patch. Given the patient's dyspnea on exertion increased swelling over the past 4 weeks as well as his history of alcohol abuse feel that further monitoring in the hospital is indicated likely requiring echocardiogram. Will discuss with the [facility] hospitalist for further observation the hospital. While awaiting admission, patient developed more bilateral chest pain discomfort. Given nitroglycerin and some morphine. Repeat EKG appears stable. Patient is already anticoagulated. Already received a dose of aspirin here. Question whether this is truly cardiac chest pain versus another etiology such as musculoskeletal or withdrawal symptomatology. Hospitalist team updated. DIAGNOSIS: Chest pain, lower extremity swelling DISPOSITION: Hospitalist will evaluate Patient was agreeable with this plan. Past Med/Surg History Social History Feels Safe at Home: Yes Smoking Status: Current every day smoker Allergies Allergies Allergy/AdvReac Type Severity Reaction Status Date / Time No Known Allergies Allergy Verified 12/28/19 18:00 Home Meds Home Medications Medication Instructions Recorded Confirmed bupropion HCl 150 mg PO QAM 03/12/18 12/28/19 pantoprazole 40 mg PO QAM 03/12/18 12/28/19 atorvastatin 40 mg PO QAM 05/09/19 12/28/19 cholecalciferol (vitamin D3) 1,000 unit PO QAM 05/09/19 12/28/19 [Vitamin D3] fluoxetine 80 mg PO QAM 05/09/19 12/28/19 levothyroxine 175 mcg PO QAM 05/09/19 12/28/19 hydroxyzine pamoate 50 mg PO QID PRN 12/28/19 12/28/19 warfarin 10 mg PO MOFR@1600 12/28/19 12/28/19 warfarin 15 mg PO SUTUWETHSA@1600 12/28/19 12/28/19 Results & Data (ED) Vital Signs Vital Signs - 24 hr 12/28/19 15:03 12/28/19 16:14 12/28/19 16:19 Temperature 36.9 C Temperature Source Oral Pulse Rate 61 53 L Pulse Rate [Apical] Pulse Rate from SpO2 Sensor 52 L Respiratory Rate 20 24 Respiratory Effort / Characteristics Respiratory Depth Respiratory Pattern Blood Pressure 167/96 H Blood Pressure Mean 119 Blood Pressure Position Sitting Blood Pressure Position [Right Arm] Pulse Oximetry 95 97 Oxygen Delivery Method Room Air Sepsis Recent Fever Within 48 Hours No Sepsis New/Unexplained Change in Mental Status No Sepsis Action Taken by Nursing No Action Required 12/28/19 16:30 12/28/19 16:39 12/28/19 16:40 Temperature Temperature Source Pulse Rate 62 55 L 47 L Pulse Rate [Apical] Pulse Rate from SpO2 Sensor 54 L 51 L Respiratory Rate 19 14 19 Respiratory Effort / Characteristics Respiratory Depth Respiratory Pattern Blood Pressure 141/66 H Blood Pressure Mean 89 Blood Pressure Position Blood Pressure Position [Right Arm] Pulse Oximetry 95 96 Oxygen Delivery Method Sepsis Recent Fever Within 48 Hours Sepsis New/Unexplained Change in Mental Status Sepsis Action Taken by Nursing 12/28/19 17:00 12/28/19 17:30 12/28/19 18:15 Temperature Temperature Source Pulse Rate 55 L 49 L Pulse Rate [Apical] 49 L Pulse Rate from SpO2 Sensor 54 L 49 L Respiratory Rate 16 18 14 Respiratory Effort / Characteristics Non-Labored Spontaneous Respiratory Depth Normal Respiratory Pattern Regular Blood Pressure 150/112 H 153/94 H Blood Pressure Mean 119 110 Blood Pressure Position Blood Pressure Position [Right Arm] Semi-fowlers Pulse Oximetry 97 96 96 Oxygen Delivery Method Room Air Sepsis Recent Fever Within 48 Hours Sepsis New/Unexplained Change in Mental Status Sepsis Action Taken by Nursing 12/28/19 18:45 12/28/19 19:00 12/28/19 19:31 Temperature Temperature Source Pulse Rate 64 57 L 51 L Pulse Rate [Apical] Pulse Rate from SpO2 Sensor Respiratory Rate 15 18 13 Respiratory Effort / Characteristics Respiratory Depth Respiratory Pattern Blood Pressure 149/78 H 158/84 H 139/65 Blood Pressure Mean 95 100 94 Blood Pressure Position Blood Pressure Position [Right Arm] Pulse Oximetry 94 98 98 Oxygen Delivery Method Sepsis Recent Fever Within 48 Hours Sepsis New/Unexplained Change in Mental Status Sepsis Action Taken by Nursing Laboratory Data Result diagrams: 12/28/19 16:40 12/28/19 16:40 Lab Results 12/28/19 12/28/19 12/28/19 Range/Units 16:40 16:40 16:40 WBC 8.18 (4.8-10.8) K/uL RBC 4.95 (4.7-6.1) M/uL Hgb 16.0 (14.0-18.0) g/dL Hct 46.3 (42-52) % MCV 93.5 (80-100) fL MCH 32.3 (25-34) pg MCHC 34.6 (32-36) g/dL RDW Std Deviation 44.8 (36.4-46.3) fL RDW Coeff of Reny 13.1 (11.5-14.5) % Plt Count 194 (130-400) K/uL MPV 11.0 H (7.4-10.4) fL Immature Gran % (Auto) 0.1 % Neut % (Auto) 48.2 % Lymph % (Auto) 39.4 % [place] % (Auto) 9.4 % Eos % (Auto) 2.7 % Baso % (Auto) 0.2 % Neut # (Auto) 3.94 (1.4-6.5) K/uL Lymph # (Auto) 3.22 (1.2-3.4) K/uL [place] # (Auto) 0.77 H (0.11-0.59) K/uL Eos # (Auto) 0.22 (0-0.5) K/uL Baso # (Auto) 0.02 (0-0.2) K/uL Immature Gran # (Auto) 0.01 (0.00-0.02) K/uL PT 21.9 H (9.0-12.0) Seconds INR 2.2 H (0.9-1.1) APTT 39.3 H (21.0-31.0) Seconds PTT Ratio 1.4 Sodium 140 (136-145) mmol/L Potassium 4.4 (3.5-5.1) mmol/L Chloride 108 H (98-107) mmol/L Carbon Dioxide 27 (21-32) mmol/L Anion Gap 5.0 (3-11) BUN 13 (7-18) mg/dl Creatinine 1.14 (0.6-1.4) mg/dl Est Cr Clr Drug Dosing 107.3 ml/min Est GFR ( Amer) 82.9 Est GFR (Non-Af Amer) 71.5 BUN/Creatinine Ratio 11.6 (10-20) Glucose 88 (70-99) mg/dl Calcium 9.0 (8.5-10.1) mg/dl Total Bilirubin 0.4 (0.2-1) mg/dl AST 23 (15-37) U/L ALT 45 (12-78) U/L Alkaline Phosphatase 91 (45-117) U/L Troponin I < 0.015 (0-0.045) ng/ml NT-Pro-B Natriuret Pep 28 (0-900) pg/ml Total Protein 7.3 (6.4-8.2) gm/dl Albumin 3.9 (3.4-5.0) gm/dl Globulin 3.4 (2.5-4.0) gm/dl Albumin/Globulin Ratio 1.2 (0.9-2) Lipase 109 (73-393) U/L Vitamin B12 (211-911) pg/ml TSH 2.180 (0.300-4.500) uIu/ml Specimen Hemolysis 12/28/19 12/28/19 Range/Units 16:40 18:22 WBC (4.8-10.8) K/uL RBC (4.7-6.1) M/uL Hgb (14.0-18.0) g/dL Hct (42-52) % MCV (80-100) fL MCH (25-34) pg MCHC (32-36) g/dL RDW Std Deviation (36.4-46.3) fL RDW Coeff of Reny (11.5-14.5) % Plt Count (130-400) K/uL MPV (7.4-10.4) fL Immature Gran % (Auto) % Neut % (Auto) % Lymph % (Auto) % [place] % (Auto) % Eos % (Auto) % Baso % (Auto) % Neut # (Auto) (1.4-6.5) K/uL Lymph # (Auto) (1.2-3.4) K/uL [place] # (Auto) (0.11-0.59) K/uL Eos # (Auto) (0-0.5) K/uL Baso # (Auto) (0-0.2) K/uL Immature Gran # (Auto) (0.00-0.02) K/uL PT (9.0-12.0) Seconds INR (0.9-1.1) APTT (21.0-31.0) Seconds PTT Ratio Sodium (136-145) mmol/L Potassium (3.5-5.1) mmol/L Chloride (98-107) mmol/L Carbon Dioxide (21-32) mmol/L Anion Gap (3-11) BUN (7-18) mg/dl Creatinine (0.6-1.4) mg/dl Est Cr Clr Drug Dosing ml/min Est GFR ( Amer) Est GFR (Non-Af Amer) BUN/Creatinine Ratio (10-20) Glucose (70-99) mg/dl Calcium (8.5-10.1) mg/dl Total Bilirubin (0.2-1) mg/dl AST (15-37) U/L ALT (12-78) U/L Alkaline Phosphatase (45-117) U/L Troponin I < 0.015 (0-0.045) ng/ml NT-Pro-B Natriuret Pep (0-900) pg/ml Total Protein (6.4-8.2) gm/dl Albumin (3.4-5.0) gm/dl Globulin (2.5-4.0) gm/dl Albumin/Globulin Ratio (0.9-2) Lipase (73-393) U/L Vitamin B12 315 (211-911) pg/ml TSH (0.300-4.500) uIu/ml Specimen Hemolysis Administered Medications Thiamine HCl (Vitamin B-1) 100 mg PO [facility] Stop: 01/27/20 16:14 Last Admin: 12/28/19 16:25 Dose: 100 mg Documented by: [id number] Discontinued Medications Aspirin (Aspirin Chew) 324 mg PO NOW STA Stop: 12/28/19 15:58 Last Admin: 12/28/19 16:25 Dose: 324 mg Documented by: [id number] Folic Acid (Folvite) 1 mg PO NOW STA Stop: 12/28/19 16:04 Last Admin: 12/28/19 16:25 Dose: 1 mg Documented by: [id number] Ketorolac Tromethamine (Toradol) 10 mg IV NOW ONE Stop: 12/28/19 18:58 Last Admin: 12/28/19 18:59 Dose: 10 mg Documented by: [id number] Morphine Sulfate (Morphine Sulfate) 4 mg IV NOW STA Stop: 12/28/19 18:14 Last Admin: 12/28/19 18:20 Dose: Not Given Documented by: [id number] Morphine Sulfate (Morphine Sulfate) Confirm Administered Dose 4 mg .ROUTE .STK- MED ONE Stop: 12/28/19 18:15 Last Admin: 12/28/19 18:19 Dose: 4 mg Documented by: [id number] Nicotine (Nicoderm Cq) 21 mg TD NOW STA Stop: 12/28/19 16:32 Last Admin: 12/28/19 16:36 Dose: 21 mg Documented by: [id number] Nitroglycerin (Nitrostat) 0.4 mg SL NOW STA Stop: 12/28/19 18:14 Last Admin: 12/28/19 18:19 Dose: Not Given Documented by: [id number] Nitroglycerin (Nitrostat) Confirm Administered Dose 0.4 mg .ROUTE .STK-MED ONE Stop: 12/28/19 18:14 Last Admin: 12/28/19 18:19 Dose: 0.4 mg Documented by: [id number] Nitroglycerin (Nitrostat) 0.4 mg SL NOW STA Stop: 12/28/19 18:38 Last Admin: 12/28/19 19:03 Dose: 0.4 mg Documented by: [id number] Discharge Plan Visit Data Chief Complaint: Cardiac Assessment Stated Complaint: SWOLLEN FEET/LEGS ED Provider: Saw Vail ED Midlevel Provider: Dannie [place] Discharge Problem: Atypical chest pain, Swelling of both lower extremities, HILLS (dyspnea on exertion) Patient Disposition: Being Evaluated by Hospitalist Condition: Fair Discharge Instructions Interventions: ED Discharge Assessment Last Done: 12/28/19 19:36 Forms Stand Alone Forms: [employer] Prescriptions Prescriptions: No Action atorvastatin 40 mg tablet 40 mg PO QAM RF: 0 fluoxetine 40 mg capsule 80 mg PO QAM RF: 0 levothyroxine 175 mcg tablet 175 mcg PO QAM RF: 0 cholecalciferol (vitamin D3) [Vitamin D3] 1,000 unit capsule 1,000 unit PO QAM RF: 0 warfarin 5 mg tablet 10 mg PO MOFR@1600 RF: 0 hydroxyzine pamoate 50 mg capsule 50 mg PO QID PRN (Reason: Anxiety) RF: 0 warfarin 5 mg Tablet 15 mg PO SUTUWETHSA@1600 RF: 0 pantoprazole 40 mg tablet,delayed release (DR/EC) 40 mg PO QAM RF: 0 bupropion HCl 150 mg tablet extended release 24 hr 150 mg PO QAM RF: 0 Referrals Referrals: Mikaela Mac DO [Primary Care Provider] -
[2019-12-28 17:02] LABS: Basophils # (auto) 0.02 K/uL (0-0.2); Basophils % (auto) 0.2 %; Eosinophils # (auto) 0.22 K/uL (0-0.5); Eosinophils % (auto) 2.7 %; Hematocrit (blood only) 46.3 % (42-52); Immature Granulocytes # (auto) 0.01 K/uL (0.00-0.02); Immature Granulocytes % (auto) 0.1 %; Lymphocytes # (auto) 3.22 K/uL (1.2-3.4); Lymphocytes % (auto) 39.4 %; Mean Corpuscular Hemoglobin 32.3 pg (25-34); Mean Corpuscular Hgb Conc 34.6 g/dL (32-36); Mean Corpuscular Volume 93.5 fL (80-100); Monocytes # (auto) 0.77 K/uL (0.11-0.59); Monocytes % (auto) 9.4 %; Neutrophils # (auto) 3.94 K/uL (1.4-6.5); Neutrophils % (auto) 48.2 %; Platelet Count 194 K/uL (130-400); RDW Coefficient of Variation 13.1 % (11.5-14.5); RDW Standard Deviation 44.8 fL (36.4-46.3); Red Blood Count 4.95 M/uL (4.7-6.1); White Blood Count 8.18 K/uL (4.8-10.8)
[2019-12-28 17:07] LABS: INR 2.2 (0.9-1.1); Partial Thromboplastin Ratio 1.4; Partial Thromboplastin Time 39.3 Seconds (21.0-31.0); Prothrombin Time 21.9 Seconds (9.0-12.0)
[2019-12-28 17:20] LABS: Alanine Aminotransferase 45 U/L (12-78); Albumin Level 3.9 gm/dl (3.4-5.0); Aspartate Aminotransferase 23 U/L (15-37); BUN Creatinine Ratio 11.6 (10-20); Blood Urea Nitrogen 13 mg/dl (7-18); Carbon Dioxide 27 mmol/L (21-32); Chloride 108 mmol/L (98-107); Creatinine Clr Calc Pharmacy 107.3 ml/min; Est GFR (African American) 82.9; Est GFR (Non-African American) 71.5; Glucose 88 mg/dl (70-99); Lipase 109 U/L (73-393); Potassium 4.4 mmol/L (3.5-5.1); Sodium 140 mmol/L (136-145)
[2019-12-28 17:29] LABS: Albumin Globulin Ratio 1.2 (0.9-2); Alkaline Phosphatase 91 U/L (45-117); Bilirubin,Total 0.4 mg/dl (0.2-1); Globulin 3.4 gm/dl (2.5-4.0); NT Pro B Type Natriuretic Pept 28 pg/ml (0-900); Total Protein 7.3 gm/dl (6.4-8.2); Troponin I < 0.015 ng/ml (0-0.045)
[2019-12-28] MEDS ORDERED: MoRPHine SULFATE 4 MG/ML 1 ML CARP\\VIAL IV STA (18:13)
[2019-12-28] MEDS ORDERED: NITROGLYCERIN SL 0.4 MG/TAB TAB ONE (18:13)
[2019-12-28] MEDS ORDERED: NITROGLYCERIN SL 0.4 MG/TAB TAB SL STA ×2 (18:13→18:37)
[2019-12-28] MEDS ORDERED: MoRPHine SULFATE 4 MG/ML 1 ML CARP\\VIAL ONE (18:14)
[2019-12-28] MEDS ORDERED: KETOROLAC TROMETHAMINE 15 MG/ML VIAL IV ONE (18:57)
[2019-12-28] MEDS ORDERED: POLYETHYLENE (MIRALAX) 17 GM PACK PO PRN (19:56)
[2019-12-28] MEDS ORDERED: ACETAMINOPHEN 325 MG TAB PO PRN (19:56)
[2019-12-28] MEDS ORDERED: LORazepam 1 MG/2 ML VIAL IV PRN (19:58)
[2019-12-28] MEDS ORDERED: GABAPENTIN 1200MG ALCOHOL WITHDRAWAL LOAD PO STA (19:58)
[2019-12-28] MEDS ORDERED: GABAPENTIN 600 MG TAB PO SCH (20:00)
--- NOTE | 2019-12-28 20:01 | History & Physical Report ---
Date of Service December 28, 2019 Assessment & Plan (1) HILLS (dyspnea on exertion): This is a 54-year-old male with PMH of alcohol use disorder, HTN, HLD, tobacco use disorder, hypothyroidism, history of PE on anticoagulation, depression and other medical problems listed below who presents with weight gain, SOB and intermittent chest pain. -Endorsing 25 pound weight gain over the past month with intermittent dyspnea on exertion and chest pain -Distention of abdomen as well as lower extremities -Concern for cirrhosis in setting of alcohol use disorder versus right-sided heart failure versus PE (although therapeutic on coumadin) -No acute process on CXR. Obtaining CTA chest and CT abd/pelvis for further visualization -2D echo ordered. Monitor on telemetry (2) Chest pain: Intermittent chest pain for the past few days. Asymptomatic on arrival but then developed chest pain requiring nitroglycerin x2 and morphine -Some subtle inferior lead changes noted on outpatient EKG but 3 repeat EKGs upon arrival to ED without change -Initial and follow-up troponin negative. Chest x-ray normal -Obtaining CTA chest to evaluate for PE and dissection -Received full dose aspirin and nitroglycerin in ED -Monitor on telemetry (3) History of pulmonary embolism: History of factor V Leiden mutation. On long-term anticoagulation -Currently therapeutic on Coumadin with INR of 2.2. Continue monitoring INR daily (4) Alcohol use disorder: Drinking 6-12 beers every day or two. Was planning to go to rehab today -Withdrawal protocol ordered with gabapentin, Ativan as needed -Folic acid and thiamine supplementation -Discharge planning for alcohol rehab placement (5) Tobacco use disorder: Endorses 1 ppd. Interested in cessation. Counseling ordered. Nicotine patch ordered (6) HTN (hypertension): Elevated at 173/9 in setting of pain, start of alcohol withdrawal -Optimize pain control, receiving gabapentin and PRN ativan for withdrawal (7) BPH (benign prostatic hyperplasia): Previously on terazosin but no longer taking. Frequent urination and unsure if emptying. Bladder scan PRN (8) Hypothyroidism: TSH wnl. Continue levothyroxine DVT Ppx: Continue coumadin Code status: FULL PCP: Estefania Dispo: Admitted to PCU. Discharge planning ordered. Patient seen in collaboration with Dr. Ricketts. Please see addendum. Admission and Anticipated Discharge Date Admission Date: December 28, 2019 History of Present Illness Chief Complaint: SOB, EKG changes, sent from clinic Primary Care Provider: Mikaela Mac, This is a 54-year-old male with PMH of alcohol use disorder, HTN, HLD, tobacco use disorder, hypothyroidism, history of PE on anticoagulation, depression and other medical problems listed below who presents with weight gain and intermittent chest pain. Patient was seen in clinic today for physical exam prior to inpatient alcohol rehab treatment due to concerns about abnormal weight gain. Patient endorses gaining 25 pounds over the past month, noting distention of abdomen and bilateral lower extremities. Endorses drinking 6-12 beers every 2 days and has been drinking more due to losing his job a month ago. Also endorses shortness of breath and chest pain that are intermittent and noticed more so when he is exerting himself. Describes chest pain as radiating across the chest with occasional pain in left arm as well. Denied any pain in clinic today but EKG was performed, revealing subtle changes in inferior leads. Dr. Bravo was present at [facility] and reviewed EKG, recommending transfer to ED for further evaluation due to EKG changes. Patient endorses eating more packaged food lately. Denies any orthopnea or PND. Patient denies any recent tick bites. Denies fever, chills, congestion, nausea, vomiting, abdominal pain, dysuria, diarrhea or constipation. Had a TTE done in 2017 which showed grade I diastolic dysfunction. CT of the Abd/Pelvis in Jul 2019 without abnormalities of liver. Current 1 ppd smoker. Last drink was last evening around 1900. Allergies Allergy/AdvReac Type Severity Reaction Status Date / Time No Known Allergies Allergy Verified 12/28/19 18:00 Home Medications Home Medications Medication Instructions Recorded Confirmed Type bupropion HCl 150 mg PO QAM 03/12/18 12/28/19 History pantoprazole 40 mg PO QAM 03/12/18 12/28/19 History atorvastatin 40 mg PO QAM 05/09/19 12/28/19 History cholecalciferol (vitamin D3) 1,000 unit PO QAM 05/09/19 12/28/19 History [Vitamin D3] fluoxetine 80 mg PO QAM 05/09/19 12/28/19 History levothyroxine 175 mcg PO QAM 05/09/19 12/28/19 History hydroxyzine pamoate 50 mg PO QID PRN 12/28/19 12/28/19 History warfarin 10 mg PO MOFR@1600 12/28/19 12/28/19 History warfarin 15 mg PO SUTUWETHSA@1600 12/28/19 12/28/19 History Past Med/Surg History Medical History (Updated 12/28/19 @ 21:19 by Alessandra Awad PA-C) Alcohol use disorder BPH (benign prostatic hyperplasia) Factor V Leiden mutation History of pulmonary embolism HLD (hyperlipidemia) HTN (hypertension) Hypothyroidism Osteoarthritis of right knee (Chronic) Tobacco use disorder Surgical History H/O hernia repair Hx of cholecystectomy Family History Other Alzheimer disease Social History (Updated 12/28/19 @ 21:13 by Alessandra Awad PA-C) Preferred Language: Cuban Communication Ability: Effective Home Sales Service Professional Required: No Beliefs That Will Affect Care: None Current Living Situation: Spouse Feels Safe at Home: Yes Safety Concerns: Feels Safe At This Time Smoking Status: Current every day smoker Cigarettes Per Day: 20 ; Do You Dip or Chew Tobacco: No ; Hx Alcohol Use: Yes (6-12 beer every 1-2 days ) Alcohol type: beer Hx Substance Use: No Review of Systems Review of Systems: At least ten systems reviewed and negative except as noted in the HPI. Physical Exam Physical Exam: General Appearance: WD/WN, vitals as above, NAD, sitting up in bed, in acute distress from pain, morbidly obese, flushed Head: normocephalic, atraumatic Eyes: normal inspection, PERRL, conjunctivae normal, anicteric sclerae ENT: external ear and nose normal, oropharynx normal Neck: trachea midline, no thyromegaly, normal visual inspection Respiratory: normal respiratory effort, scattered wheezing and rhonchi throughout lung corbin. Normal insp/exp effort, no accessory muscle use Cardiovascular: bradycardic rate, normal rhythm, no murmur appreciated, normal peripheral pulses, 1+ BLE edema. Vessels: no JVD or carotid bruit Chest: normal inspection of chest, non-tender to palpation Abdomen/GI: normal bowel sounds, distended, tympanic to percussion, nontender, no hepatosplenomegaly Extremities/Musculoskeletal: no cyanosis or clubbing, extremities motor strength 5/5 Neurologic: PERRL, EOMI, accommodation nl, no face palsy, no dysarthria, CN's II-XI intact bilaterally and moves all extremities Psychiatric: A+Ox3, + anxious Skin: normal color, warm/dry. + Petechial rash on bilateral anterior tibial surface, non-tender Results & Data Results & Data ([facility]) Vital Signs (Past 12 Hours) Vital Signs Temp Pulse Pulse Resp BP Pulse Ox 12/28/19 19:31 51 L 13 139/65 98 12/28/19 19:00 57 L 18 158/84 H 98 12/28/19 18:45 64 15 149/78 H 94 12/28/19 18:15 49 L 14 96 12/28/19 17:30 49 L 18 153/94 H 96 12/28/19 17:00 55 L 16 150/112 H 97 12/28/19 16:40 47 L 19 96 12/28/19 16:39 55 L 14 141/66 H 95 12/28/19 16:30 62 19 12/28/19 16:19 53 L 24 97 12/28/19 15:03 36.9 C 61 20 167/96 H 95 Laboratory Results Short CBC 12/28/19 12/28/19 12/28/19 Range/Units 16:40 16:40 16:40 WBC 8.18 (4.8-10.8) K/uL RBC 4.95 (4.7-6.1) M/uL Hgb 16.0 (14.0-18.0) g/dL Hct 46.3 (42-52) % MCV 93.5 (80-100) fL MCH 32.3 (25-34) pg MCHC 34.6 (32-36) g/dL RDW Std Deviation 44.8 (36.4-46.3) fL RDW Coeff of Reny 13.1 (11.5-14.5) % Plt Count 194 (130-400) K/uL MPV 11.0 H (7.4-10.4) fL Immature Gran % (Auto) 0.1 % Neut % (Auto) 48.2 % Lymph % (Auto) 39.4 % Burnett % (Auto) 9.4 % Eos % (Auto) 2.7 % Baso % (Auto) 0.2 % Neut # (Auto) 3.94 (1.4-6.5) K/uL Lymph # (Auto) 3.22 (1.2-3.4) K/uL Burnett # (Auto) 0.77 H (0.11-0.59) K/uL Eos # (Auto) 0.22 (0-0.5) K/uL Baso # (Auto) 0.02 (0-0.2) K/uL Immature Gran # (Auto) 0.01 (0.00-0.02) K/uL PT 21.9 H (9.0-12.0) Seconds INR 2.2 H (0.9-1.1) APTT 39.3 H (21.0-31.0) Seconds PTT Ratio 1.4 Sodium 140 (136-145) mmol/L Potassium 4.4 (3.5-5.1) mmol/L Chloride 108 H (98-107) mmol/L Carbon Dioxide 27 (21-32) mmol/L Anion Gap 5.0 (3-11) BUN 13 (7-18) mg/dl Creatinine 1.14 (0.6-1.4) mg/dl Est Cr Clr Drug Dosing 107.3 ml/min Est GFR ( Amer) 82.9 Est GFR (Non-Af Amer) 71.5 BUN/Creatinine Ratio 11.6 (10-20) Glucose 88 (70-99) mg/dl Calcium 9.0 (8.5-10.1) mg/dl Total Bilirubin 0.4 (0.2-1) mg/dl AST 23 (15-37) U/L ALT 45 (12-78) U/L Alkaline Phosphatase 91 (45-117) U/L Troponin I < 0.015 (0-0.045) ng/ml NT-Pro-B Natriuret Pep 28 (0-900) pg/ml Total Protein 7.3 (6.4-8.2) gm/dl Albumin 3.9 (3.4-5.0) gm/dl Globulin 3.4 (2.5-4.0) gm/dl Albumin/Globulin Ratio 1.2 (0.9-2) Lipase 109 (73-393) U/L Vitamin B12 (211-911) pg/ml TSH 2.180 (0.300-4.500) uIu/ml Specimen Hemolysis 12/28/19 12/28/19 Range/Units 16:40 18:22 WBC (4.8-10.8) K/uL RBC (4.7-6.1) M/uL Hgb (14.0-18.0) g/dL Hct (42-52) % MCV (80-100) fL MCH (25-34) pg MCHC (32-36) g/dL RDW Std Deviation (36.4-46.3) fL RDW Coeff of Reny (11.5-14.5) % Plt Count (130-400) K/uL MPV (7.4-10.4) fL Immature Gran % (Auto) % Neut % (Auto) % Lymph % (Auto) % Burnett % (Auto) % Eos % (Auto) % Baso % (Auto) % Neut # (Auto) (1.4-6.5) K/uL Lymph # (Auto) (1.2-3.4) K/uL Burnett # (Auto) (0.11-0.59) K/uL Eos # (Auto) (0-0.5) K/uL Baso # (Auto) (0-0.2) K/uL Immature Gran # (Auto) (0.00-0.02) K/uL PT (9.0-12.0) Seconds INR (0.9-1.1) APTT (21.0-31.0) Seconds PTT Ratio Sodium (136-145) mmol/L Potassium (3.5-5.1) mmol/L Chloride (98-107) mmol/L Carbon Dioxide (21-32) mmol/L Anion Gap (3-11) BUN (7-18) mg/dl Creatinine (0.6-1.4) mg/dl Est Cr Clr Drug Dosing ml/min Est GFR ( Amer) Est GFR (Non-Af Amer) BUN/Creatinine Ratio (10-20) Glucose (70-99) mg/dl Calcium (8.5-10.1) mg/dl Total Bilirubin (0.2-1) mg/dl AST (15-37) U/L ALT (12-78) U/L Alkaline Phosphatase (45-117) U/L Troponin I < 0.015 (0-0.045) ng/ml NT-Pro-B Natriuret Pep (0-900) pg/ml Total Protein (6.4-8.2) gm/dl Albumin (3.4-5.0) gm/dl Globulin (2.5-4.0) gm/dl Albumin/Globulin Ratio (0.9-2) Lipase (73-393) U/L Vitamin B12 315 (211-911) pg/ml TSH (0.300-4.500) uIu/ml Specimen Hemolysis BMP 12/28/19 16:40 Sodium 140 Potassium 4.4 Chloride 108 H Carbon Dioxide 27 BUN 13 Creatinine 1.14 Glucose 88 Calcium 9.0 Cardiac Enzymes 12/28/19 12/28/19 Range/Units 16:40 18:22 Troponin I < 0.015 < 0.015 (0-0.045) ng/ml Liver Function 12/28/19 Range/Units 16:40 Total Bilirubin 0.4 (0.2-1) mg/dl AST 23 (15-37) U/L ALT 45 (12-78) U/L Alkaline Phosphatase 91 (45-117) U/L Albumin 3.9 (3.4-5.0) gm/dl Code Status & VTE Plan VTE Prophylaxis Plan VTE Prophylaxis will be ordered: Yes Supervising Physician Co-Signing Physician Notes HISTORY: Record reviewed. Patient interviewed and examined. Care coordinated with Alessandra Awad PA-C; please refer to her documentation for complete history. Briefly, 54 YO M with history of thromboembolic disease (DVT & PE, underlying factor V Leiden mutation), alcoholism, and other problems. Stopped drinking yesterday and was planning to enter rehab. Scheduled for appt in clinic for evaluation of 25 lb weight gain. Experienced chest pain in clinic and referred to ED for further evaluation. CP similar to previous PE's. Also has history of GERD, severe at times. EXAM: General- no distress Lungs- diffuse mild wheezing; no respiratory distress Cardiovascular- RRR; no murmur; no gallop; no JVD; 2+ pretibial edema Abdomen- + bowel sounds, soft, nontender Extremities- no cyanosis; no calf tenderness Neuro- alert, oriented Skin- warm & dry DATA: INR 2.2 Trop neg x 2. LFT's OK. Other lab studies as noted. Chest x-ray reviewed and did not show any infiltrates, effusions, CHF. CTA chest neg for PE or other acute findings (prelim reading per [facility]). CT abd and pelvis negative for cirrhosis, ascites, acute process (prelim reading per [facility]). EKG performed at 1614 reviewed and demonstrated SB at 51 / minute, 0.[address] elevation III, aVF. EKG performed at 1811 with CP reviewed and demonstrated SB at 51 / minute, 0.[address] elevation III, aVF. EKG performed at 1839 with CP reviewed and demonstrated SB at 51 / minute, 0.[address] elevation III, aVF. ASSESSMENT AND PLAN: CHEST PAIN No EKG changes with chest pain. Troponin neg x 2. Acute coronary syndrome unlikely. Hx of pulmonary embolism, but no acute PE per CTA chest. No apparent aortic dissection per CTA. Chest pain may be due to GERD / esophagitis. Increase pantoprazole to 40 BID. Antacids PRN. DEPENDENT EDEMA / WEIGHT GAIN Recent onset. No apparent acute thromboembolic disease per CTA chest. No apparent cirrhosis per CT abd. Albumin normal. Check echo. Monitor O2 sat. Low Na diet. Start diuretic therapy. HISTORY OF PE & DVT Factor V Leiden mutation. Continue warfarin. ALCOHOLISM Alcohol withdrawal program with gabapentin. Please refer to GURVINDER Awad's documentation for discussion of other issues.
[2019-12-28] MEDS ORDERED: MoRPHine SULFATE 2 MG/ML CARP IV STA (20:36)
[2019-12-28] MEDS ORDERED: MoRPHine SULFATE 2 MG/ML CARP ONE (20:39)
[2019-12-28] MEDS ORDERED: OPTIRAY 320 125ml IV PRN (20:55)
[2019-12-28] MEDS ORDERED: ALUMINUM/MAGNESIUM/SIMETH (MAALOX MAX) 30 ML UDC PO PRN (22:06)
[2019-12-28] MEDS ORDERED: MoRPHine SULFATE 2 MG/ML CARP IV PRN (22:06)
[2019-12-28] MEDS: PANTOprazole 40 MG TAB PO SCH (22:43)
[2019-12-29] MEDS: GABAPENTIN 600 MG TAB PO SCH ×2 (04:19→08:42)
[2019-12-29] MEDS ORDERED: LEVOTHYROXINE SODIUM 175 MCG TABLET PO SCH (06:30)
--- NOTE | 2019-12-29 06:37 | CT Scan Report ---
CT angio chest PE protocol CT DOSE: HISTORY: Chest pain PE, also eval aorta for dissection TECHNIQUE: Multiaxial CT images of the chest were performed following the intravenous administration of contrast to evaluate the pulmonary arteries. Maximal intensity projection images were also obtaine d. A dose lowering technique was utilized adhering to the principles of ALARA. COMPARISON STUDY: None. FINDINGS: There is a normal caliber thoracic aorta with no evidence for dissection. There is no evide nce for pulmonary embolus. No pleural effusions. No pneumothorax. The liver and spleen are unremarkab le. No mediastinal or hilar lymphadenopathy. The central airways are patent. The lungs are clear. IMPRESSION: No evidence for pulmonary embolus. No evidence for dissection. Lungs are clear. ACT 112: Negative or not required by law. The above report was generated using voice recognition software. It may contain grammatical, syntax or spelling errors. Electronically signed by: Mc Garcia M.D. 12/29/2019 6:36 AM
[2019-12-29 06:47] LABS: Hematocrit (blood only) 46.6 % (42-52); Hemoglobin 15.7 g/dL (14.0-18.0); Mean Corpuscular Hemoglobin 32.4 pg (25-34); Mean Corpuscular Hgb Conc 33.7 g/dL (32-36); Mean Corpuscular Volume 96.1 fL (80-100); Mean Platelet Volume 11.3 fL (7.4-10.4); Platelet Count 180 K/uL (130-400); RDW Standard Deviation 45.2 fL (36.4-46.3); Red Blood Count 4.85 M/uL (4.7-6.1); White Blood Count 5.52 K/uL (4.8-10.8)
[2019-12-29 06:54] LABS: INR 2.1 (0.9-1.1); Prothrombin Time 21.2 Seconds (9.0-12.0)
[2019-12-29 07:25] LABS: Alanine Aminotransferase 53 U/L (12-78); Albumin Level 3.3 gm/dl (3.4-5.0); Aspartate Aminotransferase 32 U/L (15-37); BUN Creatinine Ratio 12.3 (10-20); Blood Urea Nitrogen 14 mg/dl (7-18); Calcium 8.1 mg/dl (8.5-10.1); Carbon Dioxide 31 mmol/L (21-32); Chloride 108 mmol/L (98-107); Creatinine Clr Calc Pharmacy 106.1 ml/min; Est GFR (Non-African American) 70.7; Glucose 106 mg/dl (70-99); Potassium 4.7 mmol/L (3.5-5.1); Sodium 140 mmol/L (136-145)
--- NOTE | 2019-12-29 07:27 | CT Scan Report ---
ABDOMEN AND PELVIS CT WITH IV CONTRAST CT DOSE: 2571.62 mGy.cm HISTORY: Acute chest pain with shortness of breath 25 lb weight gain, distent, concern for cirrhosis TECHNIQUE: Multiaxial CT images of the abdomen and pelvis were performed following the IV administrat ion of 119 cc of Optiray 320, A dose lowering technique was utilized adhering to the principles of A CHERYLE. COMPARISON STUDY: CTA chest of same day, CT abdomen and pelvis 02/07/2018 FINDINGS: Clear lung bases. No pneumatosis or pneumoperitoneum. Imaged inferior cardiac chambers are unremarkab le. The spleen, pancreas and adrenal glands are unremarkable. Cholecystectomy. Hepatic steatosis. No evidence of cirrhosis or ascites. Patency of the hepatic and portal veins. 2 mm nonobstructing calcul us of the inferior pole left kidney. Kidneys are otherwise unremarkable. No ureteral calculi or obstr uctive uropathy. Decompressed urinary bladder. Coarse calcifications of the central prostate. Mixed p laque of the abdominal aorta without aneurysm. No adenopathy. No bowel obstruction or bowel wall thickening. Noninflamed appendix. No ascites or mesenteric inflamm ation. There is a tiny fat filled supraumbilical ventral abdominal wall hernia, diastases 1.5 cm. Bon es appear intact. No acute fracture. IMPRESSION: 1. Hepatic steatosis. No evidence of cirrhotic liver disease or ascites. 2. No bowel obstruction or bowel wall thickening. 3. Nonobstructing left nephrolithiasis. ACT 112: Negative or not required by law. The above report was generated using voice recognition software. It may contain grammatical, syntax o r spelling errors. Electronically signed by: Jairo Hahn M.D. 12/29/2019 7:25 AM
[2019-12-29 07:29] LABS: Alkaline Phosphatase 89 U/L (45-117); Bilirubin,Total 0.5 mg/dl (0.2-1); Globulin 3.4 gm/dl (2.5-4.0); Total Protein 6.7 gm/dl (6.4-8.2); Troponin I < 0.015 ng/ml (0-0.045)
[2019-12-29] MEDS: PANTOprazole 40 MG TAB PO SCH (08:41)
[2019-12-29] MEDS ORDERED: PANTOprazole 40 MG TAB PO SCH (09:00)
[2019-12-29] MEDS ORDERED: FOLIC ACID 1 MG TAB PO SCH (09:00)
[2019-12-29] MEDS ORDERED: BuPROPion XL 300 MG TABCR PO SCH (09:00)
[2019-12-29] MEDS ORDERED: FLUOXETINE HCL 20 MG CAP PO SCH (09:00)
[2019-12-29] MEDS ORDERED: POTASSIUM CHLORIDE 10 MEQ TABCR PO SCH (09:00)
[2019-12-29] MEDS ORDERED: BuPROPion XL 150 MG TABCR PO SCH (09:00)
[2019-12-29] MEDS ORDERED: THIAMINE HCL 100 MG TAB PO SCH (09:00)
[2019-12-29] MEDS ORDERED: CHOLECALCIFEROL 1,000 UNITS 25 MCG TAB PO SCH (09:00)
[2019-12-29] MEDS ORDERED: ATORVASTATIN 40 MG TAB PO SCH (09:00)
[2019-12-29] MEDS ORDERED: FUROSEMIDE 20 MG TAB PO SCH (09:00)
--- NOTE | 2019-12-29 14:46 | Cardiology Consultation ---
Date of Consultation December 29, 2019 Assessment & Plan (1) Chest pain: (2) Tobacco use disorder: (3) Alcohol use disorder: (4) History of pulmonary embolism: (5) Factor V Leiden mutation: (6) HILLS (dyspnea on exertion): 54-year-old patient presents with atypical chest discomfort. ECG within normal limits. Sinus bradycardia recorded on telemetry without associated symptoms. His cardiac enzymes are negative x3 sets. Resting 2D transthoracic echocardiogram reviewed demonstrating normal left ventricular systolic function, normal wall motion. INR is therapeutic. CTA of the chest negative for dissection or pulmonary embolus. Further evaluation/stratification recommended with dobutamine stress echocardiography. Patient consumed both his a.m. and midday meals, therefore, we will not administer IV dobutamine for at least 6 hours. Discussed potential scheduling of outpatient stress testing. Patient is agreeable. I will arrange for dobutamine stress echo to be performed in my office early next week. Patient struck to to return to the emergency department with any recurrent chest pain over the next 48 hours. All questions answered to satisfaction both the patient and his . Case discussed with internal medicine. Consideration for inhaled bronchodilators to improve dyspnea with evidence of active wheezing on physical exam. Smoking cessation advised. History of Present Illness Reason for Consultation: chest pain, SOB Requesting Physician: Dr. Ordoñez Attending Physician: Ivon Ordoñez MD History of Present Illness 54-year-old patient presented emergency department with chest pain. Evaluated by his primary care provider earlier in the day. Patient reports left-sided chest discomfort described as a dull pressure. Discomfort lasted 5 to 6 minutes at a time. Severity 6/10. Treated with morphine and nitro in the ER yesterday. No recurrent chest discomfort overnight. Today he is feeling well from a cardiovascular perspective. Ambulating in the halls without discomfort or symptoms. Reports shortness of breath and dyspnea with exertion which has been progressive over the past 6 months. Also complains of bilateral pedal edema. Admits to drinking 12 beers per day and smoking up to 1.5 packs of cigarettes per day. Lost his job last month. Currently resting comfortably. is present at bedside. She offers no additional concerns/complaints. Patient previously evaluated by the undersigned in 2018 secondary to sinus bradycardia. Most recent dobutamine stress echo performed 2018 negative for inducible ischemia. Allergies Allergy/AdvReac Type Severity Reaction Status Date / Time No Known Allergies Allergy Verified 12/28/19 18:00 Home Medications Home Medications Medication Instructions Recorded Confirmed Type bupropion HCl 150 mg PO QAM 03/12/18 12/28/19 History pantoprazole 40 mg PO QAM 03/12/18 12/28/19 History atorvastatin 40 mg PO QAM 05/09/19 12/28/19 History cholecalciferol (vitamin D3) 1,000 unit PO QAM 05/09/19 12/28/19 History [Vitamin D3] fluoxetine 80 mg PO QAM 05/09/19 12/28/19 History levothyroxine 175 mcg PO QAM 05/09/19 12/28/19 History hydroxyzine pamoate 50 mg PO QID PRN 12/28/19 12/28/19 History warfarin 10 mg PO MOFR@1600 12/28/19 12/28/19 History warfarin 15 mg PO SUTUWETHSA@1600 12/28/19 12/28/19 History Patient History Medical History Alcohol use disorder BPH (benign prostatic hyperplasia) Factor V Leiden mutation History of pulmonary embolism HLD (hyperlipidemia) HTN (hypertension) Hypothyroidism Osteoarthritis of right knee (Chronic) Tobacco use disorder Surgical History H/O hernia repair Hx of cholecystectomy Family History Other Alzheimer disease Social History Preferred Language: Divehi Communication Ability: Effective 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 Required: No Beliefs That Will Affect Care: None Current Living Situation: Spouse Feels Safe at Home: Yes Safety Concerns: Feels Safe At This Time Smoking Status: Current every day smoker Cigarettes Per Day: 20 ; Do You Dip or Chew Tobacco: No ; Hx Alcohol Use: Yes (6-12 beer every 1-2 days ) Alcohol type: beer Hx Substance Use: No Review of Systems Review of Systems: All systems reviewed & are unremarkable except as noted in HPI & below Physical Exam Constitutional: well developed and + obese; no acute distress, not ill appearing and not intoxicated appearing Respiratory: normal respiratory effort Auscultation: + wheezes (Bilateral inspiratory and expiratory wheezing); no crackles, no rales and no rhonchi Cardiovascular: Rate/Rhythm: regular rate and + bradycardic Heart Sounds: normal S1 and normal S2; no murmur Vessels: radial pulses present; no JVD and no carotid bruit Extremities: no edema Gastrointestinal (Abdomen): Inspection/Auscultation: abdomen normal to inspection and normal bowel sounds; abdomen not distended Percussion/Palpation: abdomen soft; abdomen nontender, no guarding and abdomen not rigid Skin: no rashes, warm and dry + rash Neurologic: CN's II-XI intact bilaterally and moves all extremities; no focal motor deficits Speech / Cognition: normal speech Motor/Sensory: no tremor Psychiatric: A+Ox3, euthymic affect Results & Data ([facility]) Vital Signs (Past 12 Hours) Vital Signs Temp Pulse Pulse Pulse Resp BP Pulse Ox 12/29/19 11:16 36.6 C 47 L 18 124/94 96 12/29/19 08:30 44 L 12/29/19 07:11 36.6 C 46 L 16 144/107 H 96 12/29/19 04:13 36.6 C 46 L 20 146/89 H 97 (1) Chest pain Chest pain type: precordial pain Qualified Code(s): R07.2 - Precordial pain
--- NOTE | 2019-12-29 15:08 | Hospitalist Progress Note ---
Date of Service December 29, 2019 Assessment & Plan (1) HILLS (dyspnea on exertion): Presented with shortness of breath, dyspnea on exertion, History of longtime 1.5 pack tobacco usage, patient may have underlying reactive airway disease versus COPD Reports of wheezing on activity, while sleeping No shortness of breath or cough Smoking cessation counseling provided, PRN albuterol inhaler prescribed Patient will need outpatient pulmonary function test, and sleep study Possible volume overload decompensated heart failure with diastolic dysfunction/HFpEF : Presented with weight gain 25 pounds in the last 1 month, intermitted orthopnea, dyspnea on exertion, lower extremity swelling Echo shows normal LV function, no wall motion abnormality Patient started on p.o. Lasix 20 mg daily with potassium supplement, significant improvement of lower extremity swelling and's symptoms noted Patient is advised for low-salt diet, Abstinence from alcohol abuse Will be discharged on Lasix 20 mg daily and potassium supplement Will need continued follow-up with cardiology in outpatient (2) Chest pain: Symptom has resolved, Serial cardiac markers negative, no EKG change, CTA chest negative for PE Appreciate input from cardiology, Recommend outpatient stress test PRN broncho-dilators albuterol given for possible underlying asthma/COPD due to chronic tobacco abuse (3) History of pulmonary embolism: History of factor V Leiden mutation. On long-term anticoagulation -Currently therapeutic on Coumadin (4) Alcohol use disorder: Drinking 6-12 beers every day or two. No sign of withdrawal Patient is counseled repeatedly for strict alcohol abstinence Willing for outpatient alcohol rehab (5) Tobacco use disorder: Endorses 1.5 ppd. Interested in cessation. Patient is counseled repeatedly regarding risk factor for coronary artery disease or stroke, with ongoing tobacco abuse (6) HTN (hypertension): BP stable Patient will be discharged on Lasix 20 mg daily for volume overload and decompensated CHF (7) BPH (benign prostatic hyperplasia): No urinary issues (8) Hypothyroidism: TSH wnl. Continue levothyroxine DVT Ppx: Continue coumadin Code status: FULL Dispo: pt is discharged home, cardiology will schedule outpatient cardiac/dobutamine stress test Admission and Anticipated Discharge Date Admission Date: December 28, 2019 Subjective Patient seen at bedside, denies of any chest pain no shortness of breath, no dizzy spell or lightheadedness Evaluated by cardiology earlier, recommends outpatient cardiac stress dobutamine stress test Had no recurrence of symptoms, lower extremity swelling markedly improved after p.o. Lasix No orthopnea no dyspnea on exertion Stable to be discharged home today Review of Systems Review of Systems: All systems reviewed & are unremarkable except as noted in HPI & below Cardiovascular: no chest pain, no chest pain at rest, no chest pain with activity, no dyspnea, no dyspnea at rest, no orthopnea, no lightheadedness and no edema Physical Exam Constitutional: WD/WN, vitals as above Eyes: PERRL, conjunctivae normal, anicteric sclerae ENMT: external ear and nose normal, oropharynx normal Neck: trachea midline, no thyromegaly Respiratory: no cough Auscultation: + diminished lung sounds and + wheezes Cardiovascular: RRR, no murmur, no edema Gastrointestinal (Abdomen): normal bowel sounds, soft, nontender, no hepatosplenomegaly Musculoskeletal: no cyanosis or clubbing, extremities motor strength 5/5 Skin: no rashes, warm and dry Neurologic: PERRL, EOMI, accommodation nl, no face palsy, no dysarthria Psychiatric: A+Ox3, euthymic affect Results & Data Results & Data ([facility]) Vital Signs (Past 12 Hours) Vital Signs Temp Pulse Pulse Pulse Resp BP Pulse Ox 12/29/19 14:50 47 L 12/29/19 11:16 36.6 C 47 L 18 124/94 96 12/29/19 08:30 44 L 12/29/19 07:11 36.6 C 46 L 16 144/107 H 96 12/29/19 04:13 36.6 C 46 L 20 146/89 H 97 (1) Chest pain Chest pain type: precordial pain Qualified Code(s): R07.2 - Precordial pain
[2019-12-29] MEDS ORDERED: WARFARIN SOD 10 MG TAB PO SCH (16:00)
--- NOTE | 2019-12-29 16:07 | Discharge Summary ---
Date of Service December 29, 2019 Admission HPI Per Admitting Provider This is a 54-year-old male with PMH of alcohol use disorder, HTN, HLD, tobacco use disorder, hypothyroidism, history of PE on anticoagulation, depression and other medical problems listed below who presents with weight gain and intermittent chest pain. Patient was seen in clinic today for physical exam prior to inpatient alcohol rehab treatment due to concerns about abnormal weight gain. Patient endorses gaining 25 pounds over the past month, noting distention of abdomen and bilateral lower extremities. Endorses drinking 6-12 beers every 2 days and has been drinking more due to losing his job a month ago. Also endorses shortness of breath and chest pain that are intermittent and noticed more so when he is exerting himself. Describes chest pain as radiating across the chest with occasional pain in left arm as well. Denied any pain in clinic today but EKG was performed, revealing subtle changes in inferior leads. Dr. Bravo was present at [facility] and reviewed EKG, recommending transfer to ED for further evaluation due to EKG changes. Patient endorses eating more packaged food lately. Denies any orthopnea or PND. Patient denies any recent tick bites. Denies fever, chills, congestion, nausea, vomiting, abdominal pain, dysuria, diarrhea or constipation. Had a TTE done in 2018 which showed grade I diastolic dysfunction. CT of the Abd/Pelvis in Jul 2019 without abnormalities of liver. Current 1 ppd smoker. Last drink was last evening around 1900. Principal Diagnosis CHEST PAIN NO ACUTE CARDIAC EVENT Discharge Exam Constitutional WD/WN, vitals as above Eyes PERRL, conjunctivae normal, anicteric sclerae ENMT external ear and nose normal, oropharynx normal Neck trachea midline, no thyromegaly Respiratory no cough Auscultation: + diminished lung sounds and + wheezes Cardiovascular RRR, no murmur, no edema Gastrointestinal (Abdomen) normal bowel sounds, soft, nontender, no hepatosplenomegaly Musculoskeletal no cyanosis or clubbing, extremities motor strength 5/5 Skin no rashes, warm and dry Neurologic PERRL, EOMI, accommodation nl, no face palsy, no dysarthria Psychiatric A+Ox3, euthymic affect Discharge Data Allergies Allergy/AdvReac Type Severity Reaction Status Date / Time No Known Allergies Allergy Verified 12/28/19 18:00 Consultations 12/28/19 17:53 ED Decision to Admit Stat 12/28/19 19:56 Consult Case Management - Discharge Planning Routine 12/29/19 13:39 Consult Cardiology Routine Ordered Studies 12/28/19 19:53 CT abd pelvis IV con only Urgent CT angio chest PE protocol Urgent Hospital Course (1) HILLS (dyspnea on exertion): Presented with shortness of breath, dyspnea on exertion, History of longtime 1.5 pack tobacco usage, patient may have underlying reactive airway disease versus COPD Reports of wheezing on activity, while sleeping No shortness of breath or cough Smoking cessation counseling provided, PRN albuterol inhaler prescribed Patient will need outpatient pulmonary function test, and sleep study Possible volume overload decompensated heart failure with diastolic dysfunction/HFpEF : Presented with weight gain 25 pounds in the last 1 month, intermitted orthopnea, dyspnea on exertion, lower extremity swelling Echo shows normal LV function, no wall motion abnormality Patient started on p.o. Lasix 20 mg daily with potassium supplement, significant improvement of lower extremity swelling and's symptoms noted Patient is advised for low-salt diet, Abstinence from alcohol abuse Will be discharged on Lasix 20 mg daily and potassium supplement Will need continued follow-up with cardiology in outpatient (2) Chest pain: Symptom has resolved, Serial cardiac markers negative, no EKG change, CTA chest negative for PE Appreciate input from cardiology, Recommend outpatient stress test PRN broncho-dilators albuterol given for possible underlying asthma/COPD due to chronic tobacco abuse (3) History of pulmonary embolism: History of factor V Leiden mutation. On long-term anticoagulation -Currently therapeutic on Coumadin (4) Alcohol use disorder: Drinking 6-12 beers every day or two. No sign of withdrawal Patient is counseled repeatedly for strict alcohol abstinence Willing for outpatient alcohol rehab (5) Tobacco use disorder: Endorses 1.5 ppd. Interested in cessation. Patient is counseled repeatedly regarding risk factor for coronary artery disease or stroke, with ongoing tobacco abuse (6) HTN (hypertension): BP stable Patient will be discharged on Lasix 20 mg daily for volume overload and decompensated CHF (7) BPH (benign prostatic hyperplasia): No urinary issues (8) Hypothyroidism: TSH wnl. Continue levothyroxine DVT Ppx: Continue coumadin Code status: FULL Dispo: pt is discharged home, cardiology will schedule outpatient cardiac/dobutamine stress test Total Time Total Time Spent Total Time Spent (In Minutes): 35 mins Total Time Includes: Examination of the Patient, Discharge Planning, Medication Reconciliation and Communication With Other Providers Discharge Plan Discharge Items Patient Disposition: Home - Self-Care Reason For Visit: CHEST PAIN Discharge Diagnosis: CHEST PAIN NO ACUTE CARDIAC EVENT Condition on Discharge: Fair Activity: Resume your previous activity Non-emergency contact: Primary Care Provider Call non-emergency contact if: you have any medication questions Follow-up/Referrals: Jose Holloway DO [[facility] [employer] [facility]] - (CARDIAC DOBUTAMINE STRESS TEST ON Wednesday01/01/20 , CARDIOLOGY OFFICE WILL CALL WITH APPOINTMENT ) Mikaela Mac DO [Primary Care Provider] - 01/03/20 11:20 am (Hospital follow up with Dr Mitchell at [facility] on Wednesday01/03/20 ) Diet: Heart Healthy and Low Sodium (2gm) Addtl Attending Provider Instructions: Hospital follow-up scheduled for 01/03/2020 Cardiology office will call to schedule dobutamine cardiac stress test in outpatient It is very important for you to have complete abstinence from alcohol and smoking /tobacco smoking you are at high risk for acute cardiac event ( heart attack ) , stroke , early liver disease , liver and kidney failure , lung complication -COPD Pending Studies at Discharge: Yes Studies:: Cardiac dobutamine stress test, to be scheduled by [facility] cardiology physician Stand-Alone Forms: [employer], Smoking Cessation Medications and DC Order Prescriptions: New albuterol sulfate 90 mcg/actuation HFA aerosol inhaler 2 puffs INH Q6H PRN (Reason: shortness of breath or wheezing) Qty: 18 RF: 2 furosemide 20 mg Tablet 20 mg PO QAM Qty: 30 RF: 3 potassium chloride [Klor-Con M10] 10 mEq Tablet,Er Particles/Crystals 10 meq PO DAILY Qty: 30 RF: 3 Continued atorvastatin 40 mg tablet 40 mg PO QAM RF: 0 fluoxetine 40 mg capsule 80 mg PO QAM RF: 0 levothyroxine 175 mcg tablet 175 mcg PO QAM RF: 0 cholecalciferol (vitamin D3) [Vitamin D3] 1,000 unit capsule 1,000 unit PO QAM RF: 0 warfarin 5 mg tablet 10 mg PO MOFR@1600 RF: 0 hydroxyzine pamoate 50 mg capsule 50 mg PO QID PRN (Reason: Anxiety) RF: 0 warfarin 5 mg Tablet 15 mg PO SUTUWETHSA@1600 RF: 0 pantoprazole 40 mg tablet,delayed release (DR/EC) 40 mg PO QAM RF: 0 bupropion HCl 150 mg tablet extended release 24 hr 150 mg PO QAM RF: 0 Discharge Orders: Discharge Order (Routine); Ordered 12/29/19 Ordered By: Ivon Anderson/Other Patient Handouts: Your Risk Factors for Heart Disease, Low-Salt Choices, Risk Factors for Heart Disease, Why Do You Smoke?, Planning to Quit Smoking, Smoking Get Help for Quitting, Staying Smoke-Free, Health Effects of Smoking, The Benefits of Living Smoke Free, Your Heart Is at Risk, Eating Heart- Healthy Foods, ED How to Quit Smoking Admission Data Admit Date/Time: 12/28/19 18:51 Attending Provider: Ivon Ordoñez Admit Provider: Hank Ricketts Primary Care Provider: Mikaela Mac Other Providers: Hank Ricketts ; Tarun Lanier ; Naun Bravo ; Regan Miranda ; Jose Holloway ; Brandon Christian ; Mc Del Cid ; Breanna Rea ; Niya Lorenzo ; Kaushik Olivera Other Interventions: Discharge Summary Assessment (RN) Last Done: 12/29/19 16:02
[2019-12-29] MEDS ORDERED: GABAPENTIN 600 MG TAB PO SCH (16:15)
--- NOTE | 2019-12-29 21:46 | Electrocardiogram Report ---
Test Reason : Blood Pressure : / mmHG Vent. Rate : 051 BPM Atrial Rate : 051 BPM P-R Int : 232 ms QRS Dur : 096 ms QT Int : 434 ms P-R-T Axes : 061 030 051 degrees QTc Int : 400 ms Sinus bradycardia with 1st degree A-V block Otherwise normal ECG When compared with ECG of 08-FEB-2018 06:20, No significant change was found Confirmed by Mehul Hernandez ([id number]) on 12/29/2019 9:45:46 PM Referred By: REFERRED SELF Confirmed By:Mehul Hernandez
--- NOTE | 2019-12-30 07:01 | Electrocardiogram Report ---
Test Reason : Blood Pressure : / mmHG Vent. Rate : 051 BPM Atrial Rate : 051 BPM P-R Int : 230 ms QRS Dur : 094 ms QT Int : 442 ms P-R-T Axes : 066 035 061 degrees QTc Int : 407 ms Sinus bradycardia with 1st degree A-V block Otherwise normal ECG When compared with ECG of 28-DEC-2019 16:14, No significant change was found Confirmed by Mehul Hernandez ([id number]) on 12/30/2019 7:00:55 AM Referred By: REFERRED SELF Confirmed By:Mehul Hernandez
--- NOTE | 2019-12-30 07:02 | Electrocardiogram Report ---
Test Reason : Blood Pressure : / mmHG Vent. Rate : 051 BPM Atrial Rate : 051 BPM P-R Int : 230 ms QRS Dur : 092 ms QT Int : 442 ms P-R-T Axes : 068 027 052 degrees QTc Int : 407 ms Sinus bradycardia with 1st degree A-V block Otherwise normal ECG When compared with ECG of 28-DEC-2019 18:11, No significant change was found Confirmed by Mehul Hernandez ([id number]) on 12/30/2019 7:02:18 AM Referred By: REFERRED SELF Confirmed By:Mehul Hernandez
[2019-12-30] MEDS ORDERED: WARFARIN SOD 7.5 MG TAB PO SCH (16:00)
[2019-12-30] MEDS ORDERED: GABAPENTIN 600 MG TAB PO SCH (20:15)
[2020-01-01] MEDS ORDERED: GABAPENTIN 600 MG TAB PO SCH (08:15)
== END 2019-12-29 16:55 | disposition home or self-care (01) | DRG 204 ==
LOC: ED 15:00 → INTOOBSV 18:51 → SUATTDRO 18:51 → 2E 18:51